=== PATIENT | female | born 1950 | race African-American/Black ===

== ENCOUNTER 2016-12-07 20:45 | Inpatient (IN) | payer MEDICARE, MEDICAID ==
[~2016-12-07] VITALS: Ht 165.1 cm; Wt 127.0 kg
[~2016-12-07 20:45] MED LIST: ALLOPURINOL100 M1 ORAL; ASPIR-LOW81 MG PO; COLACE100 MG ORAL; Colchicine ORAL; DULCOLAX5 MG ORAL; HYDROCHLOROTHIA25 MG PO; LEXAPRO10 MG ORAL; NITROGLYCERIN0.4 MG SL; PRILOSEC40 MG PO; SIMVASTATIN5 MG PO; TENORMIN25 MG PO; TENORMIN50 MG ORAL; TRAMADOL HCL50 MG ORAL; VITAMIN B-12100 MCG ORAL
[2016-12-07 21:02] VITALS: BP 148/71
--- NOTE | 2016-12-07 21:19 | Emergency Room Report ---
History of Present Illness General Chief Complaint: Chest Pain Source: Patient Present Illness HPI This is a 66-year-old female with history of CAD and paroxysmal A. fib. She is not on anticoagulation because she is scared. Patient presents with chest pressure the last couple days. Denies any fever or chills. Denies any nausea vomiting. When she exerts herself she felt winded and short of breath. Also felt like that she goes and out of A. fib. No diaphoresis. Pressure/pain radiates to the epigastric area. She took 2 nitroglycerin without relief. She did take her aspirin today. Allergies: Coded Allergies: NO KNOWN DRUG ALLERGIES (Unverified Allergy, Unknown, 04/24/14) Patient History Past Medical History: see triage record, old chart reviewed, HTN, CAD, AFib Past Surgical History: pacemaker, other Pertinent Family History: none Social History: Denies: smoking Now: No Immunizations: other Reviewed Nursing Documentation: PMH: Agreed, PSxH: Agreed Nursing Documentation-PMH Hx Cardiac Problems: Yes - PACEMAKER, hypothroidism Hx Hypertension: Yes Hx Pacemaker: Yes Hx Asthma: Yes Hx COPD: No Hx Diabetes: No Hx Cancer: Yes - S/P left arm melanoma removal Hx Gastrointestinal Problems: Yes - GOUT, acid reflex Hx Dialysis: No Hx Neurological Problems: Yes Hx Cerebrovascular Accident: No Hx Seizures: No Hx Dizziness: Yes Hx Headaches: Yes Review of Systems Eye: Denies: blurred vision, eye pain ENT: Denies: ear pain, nose congestion, throat swelling Respiratory: Reports: shortness of breath Cardiovascular: Reports: chest pain, palpitations Gastrointestinal: Denies: abdominal pain, diarrhea, nausea, vomiting Musculoskeletal: Denies: back pain, joint pain Skin: Denies: rash Neurological: Denies: headache, numbness Endocrine: Denies: increased thirst, increased urine Hematologic/Lymphatic: Denies: easy bruising All Other Systems: negative except mentioned in HPI Physical Exam Vital Signs Date Time Temp Pulse Resp B/P Pulse Ox O2 Delivery O2 Flow Rate FiO2 12/07/16 20:44 97.5 82 16 151/67 100 Room Air vital with hypertension Sp02 EP Interpretation: reviewed, normal General Appearance: well appearing, no apparent distress, alert Head: normocephalic, atraumatic Eyes: bilateral eye EOMI, bilateral eye PERRL ENT: hearing grossly normal, normal pharynx Neck: full range of motion, supple, no meningismus Respiratory: chest non-tender, lungs clear, normal breath sounds Cardiovascular #1: regular rate, rhythm, no murmur Gastrointestinal: normal bowel sounds, non tender, no mass, no organomegaly, no bruit, non-distended Musculoskeletal: back normal, gait/station normal, normal range of motion Psychiatric: mood/affect normal Skin: warm/dry Medical Decision Making Diagnostic Impression: Primary Impression: ACS (acute coronary syndrome) Additional Impressions: Chest pain Qualified Codes: R07.9 - Chest pain, unspecified Hypertension Qualified Codes: I10 - Essential (primary) hypertension ER Course Patient presents with chest pain. Little atypical in nature but she does have known coronary disease. Labs unremarkable. She is currently in sinus rhythm. patient received aspirin and nitroglycerin by EMS. No evidence of PE, dissection, pneumonia to name a few. Will admit for further workup. Lab Results Impression labs unremarkable EKG Diagnostic Results Rate: normal Rhythm: NSR ST Segments: no acute changes Rhythm Strip Diag. Results EP Interpretation: yes Rate: 67 Rhythm: NSR, no PVC's, no ectopy Chest X-Ray Diagnostic Results EP Interpretation: Yes Findings: no consolidation, no effusion, no pneumothorax, no acute cardiopulmonary disease Number of Views: 1 Last Vital Signs Date Time Temp Pulse Resp B/P Pulse Ox O2 Delivery O2 Flow Rate FiO2 12/07/16 21:02 97.4 71 15 148/71 100 Room Air Status: improved Disposition: ADMITTED INPATIENT Condition: Serious Referrals: NON PHYSICIAN (PCP) NOLA FRAZIER M.D. Dec 07, 2016 21:19
[2016-12-07 21:34] LABS: BASOPHILS % (AUTO) 1.8 % (0.0-2.0); EOSINOPHILS % (AUTO) 2.4 % (0.0-3.0); MEAN CORPUSCULAR HEMOGLOBIN 33.8 PG (27.0-31.0); MEAN CORPUSCULAR HGB CONC 31.9 G/DL (32.0-36.0); MEAN CORPUSCULAR VOLUME 106 FL (80-99); MEAN PLATELET VOLUME 10.5 FL (6.5-10.1); MONOCYTES % (AUTO) 7.4 % (1.0-10.0); NEUTROPHILS % (AUTO) 60.4 % (45.0-75.0); PLATELET COUNT 132 K/UL (150-450); RED BLOOD COUNT 3.91 M/UL (4.20-5.40); RED CELL DISTRIBUTION WIDTH 13.5 % (11.6-14.8); WHITE BLOOD COUNT 6.8 K/UL (4.8-10.8)
[2016-12-07] MEDS ORDERED: Aspirin Baby 81mg ORAL ONE ×2 (21:45→22:15)
[2016-12-07] MEDS ORDERED: Bisacodyl EC 5mg tab ORAL PRN (22:15)
[2016-12-07] MEDS ORDERED: Nitroglycerin Subl 0.4mg tab (Bottle Of 25) SL PRN (22:15)
[2016-12-07] MEDS ORDERED: Atenolol 25mg tab ORAL ONE (22:15)
[2016-12-07] MEDS ORDERED: Allopurinol 100mg Tab ORAL ONE (22:30)
[2016-12-07 22:31] LABS: TROPONIN I < 0.30 ng/mL (<=0.30)
[2016-12-07 22:46] LABS: ALANINE AMINOTRANSFERASE 17 U/L (3-33); ALBUMIN/GLOBULIN RATIO 1.3 (1.0-2.7); ANION GAP 3 (5-15); ASPARTATE AMINO TRANSFERASE 22 U/L (5-40); CALCIUM 8.4 mg/dL (8.6-10.2); CARBON DIOXIDE 26 mEQ/L (20-30); CHLORIDE 104 mEQ/L (98-107); GLOMERULAR FILTRATION RATE > 60 mL/min (>60); HEMOLYSIS 4; POTASSIUM 4.3 mEQ/L (3.4-4.9); SODIUM 133 mEQ/L (135-145); TOTAL PROTEIN 6.5 g/dL (6.6-8.7)
[2016-12-07 22:56] LABS: CKMB < 1.5 ng/mL (< 3.8)
[2016-12-07 23:20] VITALS: BP 128/66
[2016-12-08] VITALS: BP 128/72
[2016-12-08 04:00] VITALS: BP 123/58
[2016-12-08 07:38] LABS: TROPONIN I < 0.30 ng/mL (<=0.30)
[2016-12-08 08:31] VITALS: BP 107/56
[2016-12-08] MEDS: Docusate 100mg tablet ORAL SCH (08:56)
[2016-12-08] MEDS ORDERED: traMADol 50mg tab ORAL ONE (09:00)
--- NOTE | 2016-12-08 10:16 | Diagnostic Imaging Report ---
Indication: Chest pain Technique: XRAY CHEST 1 V Comparison: 12/08/14 Findings: Cardiomediastinal silhouette is stable. There is a left chest pacemaker. There is no consolidation or pleural effusion. Atherosclerotic changes are noted. Degenerative changes of the spine are seen. Impression: No acute cardiopulmonary disease.
[2016-12-08] MEDS ORDERED: traMADol 50mg tab ORAL PRN (10:30)
[2016-12-08 11:56] VITALS: BP 97/52
[2016-12-08] MEDS: Aspirin Baby 81mg ORAL SCH (13:15)
[2016-12-08] MEDS: Allopurinol 100mg Tab ORAL SCH (13:15)
[2016-12-08] MEDS: Vitamin B-12 100mcg tab ORAL SCH (13:58)
[2016-12-08 16:10] VITALS: BP 116/62
--- NOTE | 2016-12-08 16:28 | Cardiology Progress Note ---
Subjective Subjective [id number] Objective Last 24 Hour Vital Signs Date Time Temp Pulse Resp B/P Pulse Ox O2 Delivery O2 Flow Rate FiO2 12/08/16 13:00 60 97/52 12/08/16 12:00 73 12/08/16 11:56 98.1 60 18 97/52 96 Room Air 12/08/16 08:31 97.2 60 20 107/56 97 Room Air 12/08/16 08:00 71 12/08/16 04:00 98.0 66 18 123/58 Room Air 12/08/16 04:00 61 12/08/16 00:00 97.8 68 18 128/72 97 Room Air 12/08/16 00:00 65 12/07/16 23:21 97.5 66 18 128/66 95 Room Air 12/07/16 23:20 97.5 66 18 128/66 95 Room Air 12/07/16 21:02 97.4 71 15 148/71 100 Room Air 12/07/16 21:00 82 16 Room Air 12/07/16 20:44 97.5 82 16 151/67 100 Room Air Intake and Output 12/07/16 12/08/16 19:00 07:00 Intake Total 0 ml Balance 0 ml Intake Oral 0 ml # Voids 3 # Bowel Movements 1 Laboratory Tests Test 12/07/16 21:10 12/07/16 21:45 12/08/16 05:25 White Blood Count 6.8 K/UL (4.8-10.8) Red Blood Count 3.91 M/UL (4.20-5.40) L Hemoglobin 13.2 G/DL (12.0-16.0) Hematocrit 41.4 % (37.0-47.0) Mean Corpuscular Volume 106 FL (80-99) H Mean Corpuscular Hemoglobin 33.8 PG (27.0-31.0) H Mean Corpuscular Hemoglobin Concent 31.9 G/DL (32.0-36.0) L Red Cell Distribution Width 13.5 % (11.6-14.8) Platelet Count 132 K/UL (150-450) L Mean Platelet Volume 10.5 FL (6.5-10.1) H Neutrophils (%) (Auto) 60.4 % (45.0-75.0) Lymphocytes (%) (Auto) 28.0 % (20.0-45.0) Monocytes (%) (Auto) 7.4 % (1.0-10.0) Eosinophils (%) (Auto) 2.4 % (0.0-3.0) Basophils (%) (Auto) 1.8 % (0.0-2.0) Sodium Level 133 mEQ/L (135-145) L Potassium Level 4.3 mEQ/L (3.4-4.9) Chloride Level 104 mEQ/L (98-107) Carbon Dioxide Level 26 mEQ/L (20-30) Anion Gap 3 (5-15) L Blood Urea Nitrogen 14 mg/dL (7-23) Creatinine 1.0 mg/dL (0.5-0.9) H Estimat Glomerular Filtration Rate > 60 mL/min (>60) Glucose Level 108 mg/dL (74-106) H Calcium Level 8.4 mg/dL (8.6-10.2) L Total Bilirubin 0.5 mg/dL (0.0-1.2) Aspartate Amino Transf (AST/SGOT) 22 U/L (5-40) Alanine Aminotransferase (ALT/SGPT) 17 U/L (3-33) Alkaline Phosphatase 71 U/L (35-104) Total Creatine Kinase 96 U/L (26-140) Creatine Kinase MB < 1.5 ng/mL (< 3.8) Creatine Kinase MB Relative Index 1.5 Troponin I < 0.30 ng/mL (<=0.30) < 0.30 ng/mL (<=0.30) Total Protein 6.5 g/dL (6.6-8.7) L Albumin 3.7 g/dL (3.5-5.2) Globulin 2.8 g/dL Albumin/Globulin Ratio 1.3 (1.0-2.7) NIKITA VALERIO Dec 08, 2016 16:27
[2016-12-08 20:00] VITALS: BP 127/68
[2016-12-09] VITALS: BP 121/66
--- NOTE | 2016-12-09 00:58 | Consultation ---
DATE OF CONSULTATION: 12/08/2016 CARDIOLOGY CONSULTATION This consultation is done as a coverage for Dr. Jose F Barrow. IDENTIFYING DATA: This is a 66-year-old black female. REASON FOR EVALUATION: Chest pain. HISTORY OF PRESENT ILLNESS: Taken from the patient. She reports that for several days, she had burning in her abdomen. Also, she had epigastric discomfort, severe nausea and then day before yesterday, the patient developed severe tightness in her chest. It was so severe as squeezing, radiating to her back, made her scared. She tried a couple of nitroglycerin, but then she decided to come in. Right now, she feels fine. No pain, but she has a burning in the lower part of her abdomen. PAST MEDICAL HISTORY: Significant for obesity, hypertension, gout, and hyperlipidemia. She has a pacemaker in and also GERD. PAST SURGICAL HISTORY: Pacemaker, hysterectomy and cervical conization. MEDICATIONS: Prior to admission include allopurinol, aspirin, atenolol, vitamin B12, Colace, Lexapro, omeprazole, simvastatin and tramadol. ALLERGIES: None reported. HABITS: No history of drinking, smoking, or drug abuse. SOCIAL HISTORY: Lives at home, independent. REVIEW OF SYSTEMS: No dysuria. No fever. No chills. Severe nausea, but no vomiting. No exertional chest pain. Severe knee arthritis. PHYSICAL EXAMINATION: GENERAL: This is a pleasant patient, not in acute distress. VITAL SIGNS: Blood pressure is 100/50, heart rate is 60, oxygen saturation is 97% on room air, temperature is 97.2 degrees. HEENT: PERRLA. EOMI. NECK: Supple. No obvious distress. She is obese. No neck vein distention. No carotid bruit. LUNGS: She has only a few crackles at bases. Otherwise unremarkable. Her EKG is normal besides bradycardia. HEART: Regular. There is very diminished S1. There is no gallop or murmur. BREAST: No masses. ABDOMEN: Soft and nondistended. There is tenderness in the epigastric area with percussion and palpation. Nonradiating bowel sounds are present. There is small umbilical hernia. EXTREMITIES: Lower extremities, no edema. Distal pulses palpable. NEUROLOGICAL: She is intact. LABORATORY AND DIAGNOSTIC DATA: Her EKG is sinus rhythm. Troponin was negative. Her laboratories yesterday was sodium 133 and protein 6.5. Her hematology and CBC was unremarkable. IMPRESSION AND RECOMMENDATION: Atypical chest pain could be cardiac and unstable angina could be gastroesophageal reflux disease. The patient has multiple coronary risk factors. She is not aware of recent ischemia workup. She said that she had a stress test at the [facility] several years ago and it was negative, but it was over 5 years ago. So, she is going to go for stress nuclear scan and also possibly gastrointestinal evaluation would be appropriate. Thank you very much for your consultation. Ro Vazquez M.D. DR: GUS JOB#: [id number] CC:
[2016-12-09 04:00] VITALS: BP 129/68
[2016-12-09 08:00] VITALS: BP 112/53
[2016-12-09 08:34] LABS: TROPONIN I < 0.30 ng/mL (<=0.30)
[2016-12-09 08:46] LABS: CALCIUM 8.1 mg/dL (8.6-10.2); CREATININE 1.2 mg/dL (0.5-0.9); GLOMERULAR FILTRATION RATE 54.2 mL/min (>60); POTASSIUM 4.5 mEQ/L (3.4-4.9)
[2016-12-09 08:47] LABS: BASOPHILS % (AUTO) 0.5 % (0.0-2.0); EOSINOPHILS % (AUTO) 2.2 % (0.0-3.0); LYMPHOCYTES % (AUTO) 32.9 % (20.0-45.0); MEAN CORPUSCULAR HEMOGLOBIN 32.3 PG (27.0-31.0); MEAN CORPUSCULAR HGB CONC 31.2 G/DL (32.0-36.0); MEAN CORPUSCULAR VOLUME 104 FL (80-99); MEAN PLATELET VOLUME 7.9 FL (6.5-10.1); MONOCYTES % (AUTO) 7.7 % (1.0-10.0); NEUTROPHILS % (AUTO) 56.8 % (45.0-75.0); PLATELET COUNT 158 K/UL (150-450); RED BLOOD COUNT 3.72 M/UL (4.20-5.40); RED CELL DISTRIBUTION WIDTH 13.3 % (11.6-14.8); WHITE BLOOD COUNT 6.2 K/UL (4.8-10.8)
[2016-12-09] MEDS: Allopurinol 100mg Tab ORAL SCH (10:00)
[2016-12-09] MEDS: Docusate 100mg tablet ORAL SCH (10:00)
[2016-12-09] MEDS: Vitamin B-12 100mcg tab ORAL SCH (10:00)
[2016-12-09] MEDS: Aspirin Baby 81mg ORAL SCH (10:00)
--- NOTE | 2016-12-09 10:41 | Diagnostic Imaging Report ---
Indications: Abdominal pain Technique: 2 views of the abdomen. Findings: Comparison: None. The bowel gas pattern is unremarkable. No intraperitoneal free air, bowel wall thickening, or air-fluid levels are demonstrated. No abnormal calcific or soft tissue densities are demonstrated. Disc marginal osteophytes are present in the lumbar and lower thoracic spine. Sclerosis is present at the margins of both sacroiliac joints, right greater than left. Pubic symphysis is mildly widened with marginal sclerosis. IMPRESSION: No evidence of acute abdominopelvic disease Degenerative spondylosis Bilateral sacroiliac arthropathy, nonspecific, may be degenerative or represent seronegative spondyloarthropathy Diastases of the pubic symphysis with marginal sclerosis, likely chronic.
[2016-12-09 12:00] VITALS: BP 123/63
[2016-12-09] MEDS ORDERED: Adenosine Inj IVP ONE (13:00)
[2016-12-09 16:00] VITALS: BP 113/61
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
--- NOTE | 2016-12-09 17:35 | Cardiology Progress Note ---
Assessment/Plan Assessment/Plan chest pain / palpitation paf flutter htn obesity s/p ppi [employer] device anxiety hx she has had similar sx on prior occasion neg ischemia Evaluation at [facility] 2014 neg awiat result of today stress test gi lino appropriate ekg per rev tele per rev xray rev d/w dr bradley prior test results rev Subjective ROS Limited/Unobtainable: Yes Subjective better today less cp had cp for more than 24 hours similar to prior episodes Objective Last 24 Hour Vital Signs Date Time Temp Pulse Resp B/P Pulse Ox O2 Delivery O2 Flow Rate FiO2 12/09/16 12:00 98.1 60 20 123/63 97 Room Air 12/09/16 12:00 60 12/09/16 08:00 60 12/09/16 08:00 97.5 61 20 112/53 95 Room Air 12/09/16 04:00 97.0 66 18 129/68 93 Room Air 12/09/16 04:00 71 12/09/16 00:00 97.2 75 18 121/66 96 Room Air 12/09/16 00:00 67 12/08/16 20:00 97.5 69 20 127/68 97 Room Air 12/08/16 20:00 67 General Appearance: no apparent distress, obese Neck: supple Cardiovascular: normal rate, regular rhythm, other - chest wall tender but nto reporoduce all the sx Respiratory/Chest: lungs clear Abdomen: normal bowel sounds, non tender, soft Extremities: no swelling Intake and Output 12/08/16 12/09/16 19:00 07:00 Intake Total 480 ml Balance 480 ml Intake Oral 480 ml # Voids 3 2 Laboratory Tests Test 12/09/16 07:50 White Blood Count 6.2 K/UL (4.8-10.8) Red Blood Count 3.72 M/UL (4.20-5.40) L Hemoglobin 12.0 G/DL (12.0-16.0) Hematocrit 38.5 % (37.0-47.0) Mean Corpuscular Volume 104 FL (80-99) H Mean Corpuscular Hemoglobin 32.3 PG (27.0-31.0) H Mean Corpuscular Hemoglobin Concent 31.2 G/DL (32.0-36.0) L Red Cell Distribution Width 13.3 % (11.6-14.8) Platelet Count 158 K/UL (150-450) Mean Platelet Volume 7.9 FL (6.5-10.1) Neutrophils (%) (Auto) 56.8 % (45.0-75.0) Lymphocytes (%) (Auto) 32.9 % (20.0-45.0) Monocytes (%) (Auto) 7.7 % (1.0-10.0) Eosinophils (%) (Auto) 2.2 % (0.0-3.0) Basophils (%) (Auto) 0.5 % (0.0-2.0) Sodium Level 142 mEQ/L (135-145) Potassium Level 4.5 mEQ/L (3.4-4.9) Chloride Level 100 mEQ/L (98-107) Carbon Dioxide Level 29 mEQ/L (20-30) Anion Gap 13 (5-15) Blood Urea Nitrogen 17 mg/dL (7-23) Creatinine 1.2 mg/dL (0.5-0.9) H Estimat Glomerular Filtration Rate 54.2 mL/min (>60) Glucose Level 119 mg/dL (74-106) H Calcium Level 8.1 mg/dL (8.6-10.2) L Troponin I < 0.30 ng/mL (<=0.30) ADIEN GUZMAN Dec 09, 2016 17:35
--- NOTE | 2016-12-09 19:47 | History and Physical Report ---
DATE OF ADMISSION: 12/07/2016 CHIEF COMPLAINT: Chest pain. HISTORY OF PRESENT ILLNESS: This is a 66-year-old female INCOMPLETE DICTATION Angie Batista M.D. DR: OLIMPIA JOB#: [id number] CC:
[2016-12-09 20:00] VITALS: BP 112/55
--- NOTE | 2016-12-09 22:18 | History and Physical Report ---
DATE OF ADMISSION: 12/07/2016 CHIEF COMPLIANT: Chest pain. HISTORY OF PRESENT ILLNESS: This is a 66-year-old female with past medical history of sinus node dysfunction with paroxysmal atrial fibrillation requiring pacemaker, hypertension, hyperlipidemia, obstructive sleep apnea, GERD, history of panic attacks, and history of recurrent headache. She was admitted last time to the hospital in 2013. She comes in to the hospital after having chest pain. She said she started having this chest pain since . She had pressure like pain in the substernal area, which radiated to the epigastrium. She first thought it was acid reflux and then it got worse associated with shortness of breath. She came in to the emergency room after the chest pain did not relieve with one nitroglycerin. She came in to the emergency room and found to have a negative troponin, stable hemodynamics. Her EKG was not suggestive of cardiac ischemia. When I saw her, she was more complaining of nausea and some abdominal discomfort. She has been ruled out. I have called Cardiology, Dr. Barrow, who mentions that the patient has had a stress test, which remains negative. At the present time, the patient is chest pain free, mainly complaining of nausea. She is continued on aspirin, statins, and beta-nabila here in the hospital. There is no vomiting, no fevers, no chills, no rectal bleeding, no hematemesis, and no melena. PAST MEDICAL/SURGICAL HISTORY: Symptomatic sinus node dysfunction with paroxysmal atrial fibrillation and flutter requiring pacemaker insertion, hypertension, hyperlipidemia, obstructive sleep apnea, DJD, GERD, umbilical hernia, history of panic attacks, history of headache, status post tonsillectomy with cyst removal, and hysteroscopy. MEDICATIONS: Atenolol 50 mg daily, allopurinol 200 mg daily, aspirin 81 mg daily, omeprazole 20 mg daily, Zocor 5 mg daily, nitroglycerin p.r.n., Ultram 50 mg daily p.r.n., and vitamin B12. ALLERGIES: No known allergies. SOCIAL HISTORY: She lives at home with her son. No alcohol, no tobacco, no drugs. FAMILY HISTORY: Positive for coronary artery disease. REVIEW OF SYSTEMS: Positive pertinent per HPI. PHYSICAL EXAMINATION: VITAL SIGNS: Temperature 97.4 degrees, pulse 71, respirations 15, blood pressure 148/71, and oxygen saturation 100%. GENERAL: The patient is awake, alert, in no distress. NECK: Supple. No JVD. LUNGS: Clear to auscultation. HEART: S1 and S2. Regular rate and rhythm. No murmur. ABDOMEN: Obese, soft, and nontender. EXTREMITIES: No cyanosis, no clubbing, and no edema. NEUROLOGIC: Awake and alert. The patient moves all her extremities. LABORATORY: WBC 6.8, hemoglobin 13.2, hematocrit 41.4, and platelets 132,000. Sodium 133, potassium 4.3, chloride 104, bicarbonate 26, BUN and creatinine 14 and 1. Glucose 108. Calcium 8.4. Troponin less than 0.30 x2. EKG, normal sinus rhythm. ASSESSMENT AND PLAN: 1. Acute coronary syndrome, rule out myocardial infarction. At the present time, the patient is ruled out. Troponins are negative. She is hemodynamically stable. She has been continued on aspirin, statin, and beta-blockers here in the hospital. Per Cardiology, Dr. Barrow, she had a recent stress test, which was negative. Await further input from Cardiology. 2. Atrial fibrillation. Heart rate is controlled. We will continue beta-blockers and aspirin. 3. Abdominal pain. The patient reports nausea and abdominal pain. Her abdomen is non-surgical. No peritoneal signs on exam, but we will get an x-ray. Continue PPI. 4. Secondary hypercoagulable state. 5. Obstructive sleep apnea. 6. Hypertension. This is stable. Continue atenolol. 7. Gout. This is stable. Continue allopurinol. 8. Sinus node dysfunction status post pacemaker insertion in 2012. She may require pacemaker interrogation. We will defer this to Cardiology. 9. Hyperlipidemia. This is stable. Continue statin. 10. Thrombocytopenia. No evidence of bleeding. Repeat CBC. 11. Deep venous thrombosis, gastrointestinal and stress ulcer prophylaxis with SCDs, Prilosec and Protonix. Angie Batista M.D. DR: OLIMPIA JOB#: [id number] CC:
[2016-12-10 00:25] VITALS: BP 113/55
[2016-12-10 04:00] VITALS: BP 107/62
[2016-12-10 07:51] LABS: TROPONIN I < 0.30 ng/mL (<=0.30)
[2016-12-10 08:14] VITALS: BP 117/61
[2016-12-10] MEDS: Aspirin Baby 81mg ORAL SCH (08:44)
[2016-12-10] MEDS: Allopurinol 100mg Tab ORAL SCH (08:44)
[2016-12-10] MEDS: Vitamin B-12 100mcg tab ORAL SCH (08:44)
[2016-12-10] MEDS: Docusate 100mg tablet ORAL SCH (08:45)
--- NOTE | 2016-12-10 08:49 | General Progress Note ---
Assessment/Plan Assessment/Plan GI Consult Dictated Patient with TTP umbilical hernia Will check CT Needs eventual colonoscopy as outpatient Thank you Patricia Barry MD Subjective Allergies: Coded Allergies: NO KNOWN DRUG ALLERGIES (Unverified Allergy, Unknown, 04/24/14) Objective Last 24 Hour Vital Signs Date Time Temp Pulse Resp B/P Pulse Ox O2 Delivery O2 Flow Rate FiO2 12/10/16 08:14 97.0 61 18 117/61 97 Room Air 12/10/16 04:00 97.5 61 20 107/62 96 Room Air 12/10/16 04:00 65 12/10/16 00:25 98.0 60 20 113/55 94 Room Air 12/10/16 00:00 61 12/09/16 20:00 98.1 60 20 112/55 93 Room Air 12/09/16 20:00 63 12/09/16 16:00 96.6 61 20 113/61 96 Room Air 12/09/16 16:00 61 12/09/16 12:00 98.1 60 20 123/63 97 Room Air 12/09/16 12:00 60 Intake and Output 12/09/16 12/10/16 19:00 07:00 Intake Total 360 ml Balance 360 ml Intake Oral 360 ml # Voids 2 2 Laboratory Tests 12/10/16 06:40: Troponin I < 0.30 Height (Feet): 5 Height (Inches): 5.00 Weight (Pounds): 280 PATRICIA BARRY Dec 10, 2016 08:49
--- NOTE | 2016-12-10 09:28 | Cardiology Progress Note ---
Assessment/Plan Assessment/Plan chest pain / palpitation paf flutter htn obesity s/p ppi [employer] device anxiety hx she has had similar sx on prior occasion neg ischemia Evaluation at [facility] 2014 neg awiat result of today stress test stil lnot ready as of 11/30/2016 am gi lino will dc tele once neuclear test result known Subjective Cardiovascular: Reports: chest pain - min tighnesss still present but most discomforo in the abd today , Denies: lightheadedness, palpitations Respiratory: Reports: shortness of breath Gastrointestinal/Abdominal: Reports: abdominal pain, Denies: nausea Genitourinary: Denies: burning Objective Last 24 Hour Vital Signs Date Time Temp Pulse Resp B/P Pulse Ox O2 Delivery O2 Flow Rate FiO2 12/10/16 08:14 97.0 61 18 117/61 97 Room Air 12/10/16 04:00 97.5 61 20 107/62 96 Room Air 12/10/16 04:00 65 12/10/16 00:25 98.0 60 20 113/55 94 Room Air 12/10/16 00:00 61 12/09/16 20:00 98.1 60 20 112/55 93 Room Air 12/09/16 20:00 63 12/09/16 16:00 96.6 61 20 113/61 96 Room Air 12/09/16 16:00 61 12/09/16 12:00 98.1 60 20 123/63 97 Room Air 12/09/16 12:00 60 General Appearance: no apparent distress, alert, obese Neck: no JVD Cardiovascular: normal rate, regular rhythm Respiratory/Chest: lungs clear, normal breath sounds Abdomen: normal bowel sounds, non tender, soft Extremities: no swelling Intake and Output 12/09/16 12/10/16 19:00 07:00 Intake Total 360 ml Balance 360 ml Intake Oral 360 ml # Voids 2 2 Laboratory Tests Test 12/10/16 06:40 Troponin I < 0.30 ng/mL (<=0.30) AIDEN GUZMAN Dec 10, 2016 09:28
--- NOTE | 2016-12-10 09:44 | Diagnostic Imaging Report ---
Indications: Chest pain Technique: Single day single isotope protocol utilized. Initially, resting images obtained using IV administration 10.8 millicuries 99M technetium Myoview. Subsequently, patient underwent adenosine stress testing. See cardiology report for details. During adenosine infusion, IV administration 30.1 mCi 99 M technetium Myoview. SPECT and planar images obtained. SPECT images gated to 8 phases of the cardiac cycle were also obtained, and reformatted into cine images for evaluation of ejection fraction. Comparison: None Findings: Per cardiology report, patient experienced chest pain and throat tightness. Per cardiology report, resting EKG demonstrates atrial paced rhythm, otherwise within normal limits. No significant ST-T wave changes were demonstrated during infusion. Imaging demonstrates normal post stress perfusion, without evidence of fixed or reversible perfusion defect. Calculated post stress ejection fraction 68% no focal wall motion abnormality demonstrated Impression: Equivocal clinical response to pharmacologic stress, per cardiology report Nonischemic electrocardiographic response to pharmacologic stress, per cardiology report No imaging findings to suggest ischemia, at level of stress achieved. Calculated post stress ejection fraction 68%
[2016-12-10 11:41] VITALS: BP 114/63
--- NOTE | 2016-12-10 14:20 | Diagnostic Imaging Report ---
Clinical Indication: Abdominal pain Technique: No oral contrast utilized, per emergency room physician request IV administration nonionic contrast. Venous phase spiral acquisition obtained through the abdomen and pelvis. Multiplanar reconstructions were generated. Total dose length product a 93 mGycm. CTDIvol(s) right mGy Comparison: None Findings: There is colonic diverticulosis. There is equivocal minimal infiltration of the pericolonic fat along the proximal sigmoid colon, as well as subtle slight sigmoid wall thickening. Numerous prominent perisigmoid lymph nodes are seen. No abnormal fluid collections or extraluminal gas demonstrated There is diastasis of the rectus abdominis tendon as well as atrophy of the rectus abdominis musculature. More inferiorly, there is a fat-containing periumbilical hernia which measures approximately 8 cm in diameter. The appendix is not definitely identified, but there are no findings to suggest acute appendicitis. No small bowel distention. No small bowel wall thickening. No free or loculated intraperitoneal air or fluid is evident. The liver and gallbladder are unremarkable. The extra hepatic bile ducts are mildly ectatic, common bile duct measuring 8 mm diameter. No downstream obstructive lesion demonstrated. The pancreas, spleen, adrenals are unremarkable. A 3 mm calculus is seen in the lower pole of the right kidney, and there is questionably a 2 mm calculus in the upper pole of the right kidney. No left renal or ureteral calculi demonstrated. No hydronephrosis or hydroureter. No focal renal parenchymal abnormality. No retroperitoneal or mesenteric mass or adenopathy. The heart is enlarged. Pacemaker wires are seen within the right atrium and ventricle. The included lung bases are clear. There are degenerative changes of the lumbar spine. An unusual bony spur projects cephalad and slightly anterior from the anterior right acetabulum. Impression: Colonic diverticulosis. There is equivocal minimal perisigmoid inflammatory change, as well as subtle slight sigmoid wall thickening. If real, these findings could indicate mild acute diverticulitis Prominent perisigmoid lymph nodes, nonspecific. Could be reactive if there is indeed diverticulitis. Metastatic etiology much less likely but not completely excludable No other acute process demonstrated Ectatic common bile duct, without evidence of downstream obstructive lesion. Correlate with liver function tests as regards significance, consider MRCP if clinically indicated Large fat-containing periumbilical hernia Nonobstructive right renal calyceal calculi Cardiomegaly Other findings as noted, including unusual right periacetabular spur, pacemaker, degenerative lumbar spondylosis The CT scanner at [facility] is accredited by the [employer] and the scans are performed using protocols designed to limit radiation exposure to as low as reasonably achievable to attain images of sufficient resolution adequate for diagnostic evaluation.
--- NOTE | 2016-12-10 15:22 | Diagnostic Imaging Report ---
APPROVED REPORT CPT Code: 39046 Present Symptoms Lower Extremity Pain: Bilateral BILATERAL: Imaging reveals a patent deep venous system bilaterally. There is no evidence of thrombus within the femoral, popliteal or tibial segments. The greater saphenous veins are also within normal limits. Doppler indicates normal spontaneous flow within these segments.
[2016-12-10 15:38] VITALS: BP 125/71
--- NOTE | 2016-12-10 16:32 | Geriatric Progress Note ---
Assessment/Plan Problems: (1) Nausea (2) Abdominal discomfort in left flank (3) Atrial fibrillation (4) S/P placement of cardiac pacemaker (5) Gout (6) Dyslipidemia (7) HTN (hypertension) (8) Palpitations (9) Chest pain (10) Diverticulitis large intestine Assessment/Plan Atypical chest/abdominal pain, apparently in part attributable to mild diverticulitis, place on p.o. Cipro/Flagyl x 7d. No evidence of cardiac ischemia. ? chest sxs due to reflux, costochondritis. Now doubt ankylosing spondylitis given lack of findings on CT scan of abd/ pelvis. Hold overnight due to loose stools from contrast. Plan d/c in am. Outpatient f/u with GI, rheumatology, surgery for hernia evaluation. Continue other tx. Dictated #[id number] Discussed with: patient, hospital staff Subjective Interval Events Patient reports feeling better, both abdomen and chest. Having some loose stools due to contrast. Ischemic evaluation with no evidence of ischemic regions, no wall motion abnormalities, EF 68%. Discussed with Dr. Barrow. Abd/pelvis CT with fat in periumbilical hernia, mild perisigmoid inflammatory signal suggestive of mild diverticulitis. Discussed with Dr. Barry, cover with po antibiotics, outpatient colonoscopy. Eating adequately. Constitutional: Denies: chills, fever, sweats Respiratory: Denies: shortness of breath Genitourinary: Denies: dysuria Geriatric Geriatric Last 24 Hour Vital Signs Date Time Temp Pulse Resp B/P Pulse Ox O2 Delivery O2 Flow Rate FiO2 12/10/16 15:38 97.0 67 18 125/71 100 Room Air 12/10/16 12:00 64 12/10/16 11:41 97.3 60 18 114/63 97 Room Air 12/10/16 08:14 97.0 61 18 117/61 97 Room Air 12/10/16 08:00 74 12/10/16 04:00 97.5 61 20 107/62 96 Room Air 12/10/16 04:00 65 12/10/16 00:25 98.0 60 20 113/55 94 Room Air 12/10/16 00:00 61 12/09/16 20:00 98.1 60 20 112/55 93 Room Air 12/09/16 20:00 63 12/09/16 16:00 96.6 61 20 113/61 96 Room Air 12/09/16 16:00 61 Intake and Output 12/09/16 12/10/16 19:00 07:00 Intake Total 360 ml Balance 360 ml Intake Oral 360 ml # Voids 2 2 Laboratory Tests Test 12/10/16 06:40 Troponin I < 0.30 ng/mL (<=0.30) Current Medications Medications (Trade) Dose Ordered Sig/Ganesh Route PRN Reason Start Time Stop Time Status Last Admin Dose Admin Allopurinol (Zyloprim) 200 mg DAILY ORAL 12/08/16 13:00 01/07/17 12:59 12/10/16 08:44 Aspirin (ASA) 81 mg DAILY ORAL 12/08/16 13:00 01/07/17 12:59 12/10/16 08:44 Atorvastatin Calcium (Lipitor) 10 mg QHS ORAL 12/08/16 21:00 01/07/17 20:59 12/09/16 21:16 Bisacodyl (Dulcolax) 10 mg DAILYPRN PRN ORAL Constipation 12/07/16 22:15 01/06/17 22:14 Cyanocobalamin (Vitamin B-12 Tab) 100 mcg DAILY ORAL 12/08/16 13:00 01/07/17 12:59 12/10/16 08:44 Dextrose (Dextrose 50%) STAT PRN IV Hypoglycemia 12/07/16 22:00 01/06/17 21:59 Docusate Sodium (Colace) 100 mg DAILY ORAL 12/08/16 09:00 01/07/17 08:59 12/10/16 08:45 Metoclopramide HCl (Reglan) 5 mg THREE TIMES A DAY ORAL 12/08/16 13:00 01/07/17 12:59 12/10/16 12:12 Nitroglycerin (Ntg) 0.4 mg Q5M PRN SL Prn Chest Pain 12/07/16 22:15 01/06/17 22:14 Ondansetron HCl (Zofran) 4 mg Q6H PRN IVP Nausea & Vomiting 12/07/16 22:15 01/06/17 22:14 12/08/16 17:01 Pantoprazole (Protonix) 40 mg DAILY ORAL 12/09/16 09:00 01/08/17 08:59 12/10/16 08:44 Tramadol HCl (Ultram) 50 mg BIDPRN PRN ORAL For Pain 12/08/16 10:30 12/15/16 10:29 12/08/16 22:15 Height (Feet): 5 Height (Inches): 5.00 Weight (Pounds): 280 General Appearance: no apparent distress, alert, non-toxic Head: normocephalic, atraumatic Eyes: bilateral anicteric ENT: normal pharynx, normal voice Neck: full range of motion, no mass Respiratory: lungs clear Cardiovascular: regular rate, rhythm Gastrointestinal: normal bowel sounds, soft, no organomegaly, non-distended, tenderness - mild left lower quadrant tenderness., hernia Edema: no edema noted Generalized TRENT BURTON Dec 10, 2016 16:32
[2016-12-10] MEDS ORDERED: FLAGYL500 MG ORAL (16:49)
[2016-12-10] MEDS ORDERED: CIPROFLOXACIN500 M2 ORAL (16:49)
--- NOTE | 2016-12-10 16:50 | Discharge Instructions ---
Discharge Instructions For Congestive Heart Failure Reminder Report to your physician any weight gain of 5 pounds or more in one week. TRENT BURTON Dec 10, 2016 16:50
[2016-12-10] MEDS: Ciprofloxacin 500mg tab ORAL SCH (17:24)
[2016-12-10] MEDS: metroNIDAZOLE 500mg tab ORAL SCH ×2 (17:24→23:11)
[2016-12-10 20:00] VITALS: BP 119/63
[2016-12-11] VITALS: BP 118/62
--- NOTE | 2016-12-11 02:38 | Consultation ---
DATE OF CONSULTATION: 12/10/2016 GASTROENTEROLOGY CONSULTATION CONSULTING PHYSICIAN: Patricia Barry M.D. REFERRING PHYSICIAN: Cullen Willett M.D. CHIEF COMPLAINT: I was asked to see this patient by Dr. Cullen Willett for evaluation of abdominal issues. HISTORY OF PRESENT ILLNESS: The patient is a pleasant 66-year-old woman with multiple medical problems, who was brought into the hospital since she had an episode of dizziness. She has been seen on the floor with the Cardiology service for evaluation of her chest pain, which was done as an outpatient . She has been seen by Cardiology service and a cardiac evaluation is underway. The patient also complained of symptoms of gastroesophageal reflux disease, which has been worse for the past five days. She also complains of some fullness and pressure in the lower abdomen as well as some burning and nausea. She has had a bowel movement yesterday and she denies constipation as well as diarrhea. She states her last colonoscopy was about five years ago. She denies any hematochezia. PAST MEDICAL HISTORY: History of symptomatic sinus node dysfunction, paroxysmal atrial fibrillation and atrial flutter, hypertension, hyperlipidemia, obstructive sleep apnea, degenerative joint disease, gastroesophageal reflux disease, umbilical hernia, history of panic attacks, history of headaches, status post tonsillectomy, and hysteroscopy. ALLERGIES: No known drug allergies. MEDICATIONS: See chart list for details. FAMILY HISTORY: Positive for coronary artery disease. SOCIAL HISTORY: The patient lives at home. She does not smoke or drink. REVIEW OF SYSTEMS: Otherwise negative. PHYSICAL EXAMINATION: GENERAL: A pleasant, elderly woman, seen in her room. HEENT: Normocephalic and atraumatic. Sclerae nonicteric. Oropharynx clear. NECK: Supple. CHEST: Clear to auscultation. CARDIOVASCULAR: Revealed regular rate. ABDOMEN: Obese and soft. There is a periumbilical hernia, which appeared to be significantly tender to palpation. There is also some discomfort elsewhere in the stomach, especially in the lower quadrant. EXTREMITIES: No edema. LABORATORY DATA: Noted. ASSESSMENT: This patient presents with abdominal pain, which appears to be predominantly periumbilical in nature. The patient diagnosed with incarcerated hernia as the main etiology and this has to be evaluated with a CT scan, which will be ordered now. The patient also has some vague abdominal discomfort also, which should be also evaluated by the same CT scan. Her stools can also be checked for Clostridium difficile and other pathogens. I have advised the patient that given her age, we recommend doing a colonoscopy, but this can be done as an outpatient. An endoscopy can also be done at the same time to evaluate her reflux symptoms. RECOMMENDATIONS: Per above discussion and per orders written in the chart. Thank you for asking me to participate in the care of this patient. Patricia Barry M.D. DR: LYNDSEY JOB#: [id number] CC:
[2016-12-11 04:00] VITALS: BP 132/64
--- NOTE | 2016-12-11 04:58 | Discharge Summary ---
DATE OF ADMISSION: 12/07/2016 DATE OF DISCHARGE: 12/11/2016 DISCHARGE DIAGNOSES: 1. Atypical chest and abdominal pain. 2. Diverticulitis. 3. No evidence of cardiac ischemia. 4. Periumbilical hernia. 5. Abdominal diastasis. 6. Obesity. 7. Paroxysmal atrial fibrillation and flutter requiring pacemaker insertion. 8. Hypertension. 9. Hyperlipidemia. 10. Obstructive sleep apnea. 11. Degenerative joint disease. 12. Gastroesophageal reflux disease. 13. 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 14. History of panic attacks. 15. History of headaches. 16. Status post tonsillectomy with cyst removal. 17. Status post hysteroscopy. HISTORY OF PRESENT ILLNESS: The patient is a 66-year-old woman who presented with complaints of abdominal and chest discomfort. Details of the history and physical examination are per the dictation of 12/08/2016. HOSPITAL COURSE: The patient was admitted to the [facility]. The patient presented with complaints of abdominal and chest pain. Details of the history and physical examination are per the dictation of 12/08/[address] Warren. HOSPITAL COURSE: The patient was admitted to the telemetry unit. Cardiac enzymes were unremarkable. A cardiac ischemic nuclear medicine scan was done, which revealed ejection fraction of 68%, no wall motion segmental abnormalities and no evidence of reversible ischemia, suggesting an entirely normal examination. The etiology for the chest pain is unclear. There may be an element of reflux and esophageal discomfort, but possibly also an element of costochondritis. Because of the patient's abdominal pain she was also evaluated in terms of gastrointestinal etiologies and the initial abdominal film showed some bilateral sacroiliac joint sclerosis, this raised the possibility that the patient might have a seronegative arthropathy possibly ankylosing spondylitis or related diseases with resulting mild inflammatory bowel disease and costochondritis manifestations. Subsequently, the patient's CT scan of the abdomen and pelvis apparently did not reveal significant changes consistent with such an arthropathy, making the likelihood considerably less. However the possibilityof such contribution was discussed with Dr. Mojica and she will follow up with him on a rheumatologic basis in this regard as well as for her normal osteoarthritic treatment. Because of the abdominal symptoms Gastrointestinal consultation was also requested from Dr. Barry. He ordered a CT scan of the abdomen and pelvis which did show some mild pericolic inflammatory changes in the sigmoid area possibly relating to mild diverticulitis. Since this could be a contributing etiology to the patient's overall presentation, it was recommended by Dr. Barry that a 7-day course of oral antibiotics be initiated for treatment of this etiology. Further Gastrointestinal workup will be done as an outpatient. There was finding of a paraumbilical hernia with fat which had been noted in the past. The patient apparently has a moderate amount of tenderness but no signs of significant inflammatory process on the CT scan. A referral will be made to surgery with regard to possible treatment although it should be noted that the CT scan also shows significant diastasis, which may make the surgical repair more problematic. Over the course of the patient's hospitalization her symptoms did improve and at this point the patient is deemed stable to be discharged to home. MEDICATIONS: Her medications will include 1. Atenolol 50 mg daily. 2. Allopurinol 200 mg daily. 3. Aspirin 81 mg daily. 4. Omeprazole 20 mg daily. 5. Zocor 5 mg daily. 6. Nitroglycerin p.r.n. 7. Ultram 50 mg p.r.n. q6h. 8. A six-day course of ciprofloxacin 500 mg q.12 h. and metronidazole 500 mg every eight hours. DISCHARGE INSTRUCTIONS: The patient will be followed up in the office and should follow up with Gastroenterology, Rheumatology, General surgery and also follow up with Cardiology. Cullen Willett M.D. DR: MAXIMUS JOB#: [id number] CC: FRANCISCA
[2016-12-11] MEDS: metroNIDAZOLE 500mg tab ORAL SCH (06:35)
[2016-12-11 07:59] VITALS: BP 125/67
[2016-12-11] MEDS: Aspirin Baby 81mg ORAL SCH (08:15)
[2016-12-11] MEDS: Vitamin B-12 100mcg tab ORAL SCH (08:15)
[2016-12-11] MEDS: Ciprofloxacin 500mg tab ORAL SCH (08:16)
[2016-12-11] MEDS: Allopurinol 100mg Tab ORAL SCH (08:16)
[2016-12-11] MEDS: Docusate 100mg tablet ORAL SCH (08:16)
[2016-12-11 11:48] VITALS: BP 128/70
--- NOTE | 2016-12-11 16:15 | Cardiology Report ---
APPROVED REPORT EKG Measurement Heart [id number] Normal sinus rhythm Normal ECG
--- NOTE | 2016-12-11 22:25 | General Progress Note ---
Assessment/Plan Assessment/Plan Assessment - Diverticulitis - umbilical hernia - obesity Recommendations - abx - push po - outpatient colonoscopy at a later date Subjective Allergies: Coded Allergies: NO KNOWN DRUG ALLERGIES (Unverified Allergy, Unknown, 04/24/14) Subjective feels better less pain for discharge CT reviewed with patient Objective Last 24 Hour Vital Signs Date Time Temp Pulse Resp B/P Pulse Ox O2 Delivery O2 Flow Rate FiO2 12/11/16 11:48 97.0 60 18 128/70 96 Room Air 12/11/16 11:28 61 12/11/16 07:59 97.2 75 18 125/67 98 Room Air 12/11/16 07:23 76 12/11/16 04:00 97.2 64 18 132/64 96 Room Air 12/11/16 04:00 63 12/11/16 00:00 63 12/11/16 00:00 98.1 117 18 118/62 94 Room Air Intake and Output 12/10/16 12/11/16 19:00 07:00 Intake Total 480 ml Balance 480 ml Intake Oral 480 ml # Voids 3 3 # Bowel Movements 1 Height (Feet): 5 Height (Inches): 5.00 Weight (Pounds): 280 Objective WDWN NCAT supple CTA RRR Soft obese , (+) mild LLQ and umbilical TTP no edema non focal PAULINO CLARK Dec 11, 2016 22:25
== END 2016-12-11 13:36 | disposition home or self-care (01) | DRG 206 ==
LOC: EDBD 20:45 → EMR 21:12 → 2E 21:27 → EDBEDREQ 22:17
DX: M94.0 Chondrocostal junction syndrome [Tietze] (principal); G95.89 Other specified diseases of spinal cord; D68.69 Other thrombophilia; Z68.42 Body mass index [BMI] 45.0-49.9, adult; K57.92 Diverticulitis of intestine, part unspecified, without perforation or abscess without bleeding; I48.0 Paroxysmal atrial fibrillation; I48.92 Unspecified atrial flutter; R07.89 Other chest pain; K21.9 Gastro-esophageal reflux disease without esophagitis; I10 Essential (primary) hypertension; E66.9 Obesity, unspecified; M10.9 Gout, unspecified; E78.5 Hyperlipidemia, unspecified; Z95.0 Presence of cardiac pacemaker; G47.33 Obstructive sleep apnea (adult) (pediatric); R10.9 Unspecified abdominal pain; K42.9 Umbilical hernia without obstruction or gangrene; F41.0 Panic disorder [episodic paroxysmal anxiety]
CPT/HCPCS: 36415; 71010; 74020; 74177; 78452; 80048; 80053; 82550; 82553; 84484; 85025; 93005; 93017; 93970; J2405

== ENCOUNTER 2017-05-15 15:14 | Inpatient (IN) | payer MEDICARE, MEDICAID ==
[~2017-05-15] VITALS: Ht 170.2 cm; Wt 108.9 kg
[~2017-05-15 15:14] MED LIST changes: +CIPROFLOXACIN500 M2 ORAL; +FLAGYL500 MG ORAL
--- NOTE | 2017-05-15 15:28 | Emergency Room Report ---
History of Present Illness General Chief Complaint: Chest Pain Source: Patient Present Illness HPI 66 yo f with pmhx of HTN, DM, HLD, A. fib on aspirin with a pacemaker p/w chest pain for one day. Localized to right sided chest and substernal area, sharp in nature, describes it as "someone is sitting on my chest" lasted >1 hr. Occurred on rest. Also complains of SOB. Denies palpitations, diaphoresis, n/ v. Patient states that for she thought this was the shingles, but the pain felt very heavy on her chest Denies fever, chills, cough, abd pain. Denies trauma. Patient states that she had a cardiac catheterization within the last year and no stents were placed Allergies: Coded Allergies: NO KNOWN DRUG ALLERGIES (Unverified Allergy, Unknown, 04/24/14) Patient History Past Medical History: see triage record Past Surgical History: none Pertinent Family History: none Last Menstrual Period: n/a Reviewed Nursing Documentation: PMH: Agreed, PSxH: Agreed Nursing Documentation-PMH Past Medical History: No History, Except For Hx Cardiac Problems: Yes - PACEMAKER Hx Hypertension: Yes Hx Pacemaker: Yes Hx Asthma: Yes Hx COPD: No - hyperthyroidsm, gout Hx Diabetes: No Hx Cancer: Yes - S/P left arm melanoma removal Hx Gastrointestinal Problems: Yes - GOUT, acid reflex Hx Dialysis: No Hx Neurological Problems: Yes Hx Cerebrovascular Accident: No Hx Seizures: No Hx Dizziness: Yes Hx Headaches: Yes Review of Systems All Other Systems: negative except mentioned in HPI Physical Exam Vital Signs Date Time Temp Pulse Resp B/P (MAP) Pulse Ox O2 Delivery O2 Flow Rate FiO2 05/15/17 15:19 98.2 77 21 158/75 100 Room Air Sp02 EP Interpretation: reviewed, normal General Appearance: normal inspection, well appearing, no apparent distress, alert, GCS 15, non-toxic Head: normocephalic, atraumatic Eyes: bilateral eye normal inspection, bilateral eye PERRL, bilateral eye EOMI ENT: normal ENT inspection, normal pharynx, normal voice, moist mucus membranes Neck: normal inspection, full range of motion, supple Respiratory: normal inspection, lungs clear, normal breath sounds, no respiratory distress, no retraction, no wheezing, speaking full sentences, chest symmetrical Cardiovascular #1: normal inspection, regular rate, rhythm, no edema, normal capillary refill Cardiovascular #2: 2+ radial (R), 2+ radial (L) Gastrointestinal: normal inspection, non tender, soft, non-distended, no guarding Musculoskeletal: normal inspection, back normal, normal range of motion, non- tender Neurologic: normal inspection, alert, oriented x3, responsive, motor strength/ tone normal, sensory intact, normal gait, speech normal Psychiatric: normal inspection, judgement/insight normal, memory normal Skin: normal inspection, normal color, no rash, warm/dry, well hydrated, normal turgor Medical Decision Making Diagnostic Impression: Primary Impression: ACS (acute coronary syndrome) Additional Impressions: Atrial fibrillation S/P placement of cardiac pacemaker ER Course 66-year-old female with chest pain. DDX: ACS vs. CHF vs. pneumonia vs. gastritis/GERD vs. pneumothorax Plan: IV access, obtain labs including troponin, EKG, CXR ASA, pain control with nitro / morphine Anticipate admission ER course: Patient was treated with ASA, 162 as she took at home Labs- Troponin neg Patient has remained on a monitor, HD stable, chest pain improved. Disposition: Patient requires admission for chest pain. Patient requires admission for further workup, serial troponin, and possible stress test/cath inpatient. D/W hospitalist Dr. Cullen Willett who has accepted patient Please note that this Emergency Department Report was dictated using [employer] technology software, occasionally this can lead to erroneous entry secondary to interpretation by the dictation equipment. Laboratory Tests Test 05/15/17 15:39 White Blood Count 4.5 K/UL (4.8-10.8) L Red Blood Count 3.62 M/UL (4.20-5.40) L Hemoglobin 12.5 G/DL (12.0-16.0) Hematocrit 37.3 % (37.0-47.0) Mean Corpuscular Volume 103 FL (80-99) H Mean Corpuscular Hemoglobin 34.6 PG (27.0-31.0) H Mean Corpuscular Hemoglobin Concent 33.6 G/DL (32.0-36.0) Red Cell Distribution Width 12.3 % (11.6-14.8) Platelet Count 160 K/UL (150-450) Mean Platelet Volume 7.4 FL (6.5-10.1) Neutrophils (%) (Auto) 44.6 % (45.0-75.0) L Lymphocytes (%) (Auto) 43.5 % (20.0-45.0) Monocytes (%) (Auto) 7.2 % (1.0-10.0) Eosinophils (%) (Auto) 3.5 % (0.0-3.0) H Basophils (%) (Auto) 1.2 % (0.0-2.0) Sodium Level 143 mEQ/L (135-145) Potassium Level 4.3 mEQ/L (3.4-4.9) Chloride Level 100 mEQ/L (98-107) Carbon Dioxide Level 32 mEQ/L (20-30) H Anion Gap 11 (5-15) Blood Urea Nitrogen 15 mg/dL (7-23) Creatinine 1.4 mg/dL (0.5-0.9) H Estimate Glomerular Filtration Rate 45.3 mL/min (>60) Glucose Level 96 mg/dL (74-106) Calcium Level 9.3 mg/dL (8.6-10.2) Total Bilirubin 0.3 mg/dL (0.0-1.2) Aspartate Amino Transferase (AST) 20 U/L (5-40) Alanine Aminotransferase (ALT) 10 U/L (3-33) Alkaline Phosphatase 61 U/L (35-104) Total Creatine Kinase 113 U/L (26-140) Creatine Kinase MB < 1.5 ng/mL (< 3.8) Creatine Kinase MB Relative Index Troponin I < 0.30 ng/mL (<=0.30) Pro-B-Type Natriuretic Peptide 139 pg/mL (0-125) H Total Protein 7.1 g/dL (6.6-8.7) Albumin 3.9 g/dL (3.5-5.2) Globulin 3.2 g/dL Albumin/Globulin Ratio 1.2 (1.0-2.7) EKG Diagnostic Results Rate: normal Rhythm: other - V-paced ST Segments: other - atrial paced ASA given to the pt in ED: No Rhythm Strip Diag. Results EP Interpretation: yes Rate: 65 Rhythm: other - atrial paced Chest X-Ray Diagnostic Results Chest X-Ray Diagnostic Results : Chest X-Ray Ordered: Yes # of Views/Limited/Complete: 1 View Indication: Chest Pain EP Interpretation: Yes Interpretation: no consolidation, no effusion, no pneumothorax, other - Mild cardiomegaly, pacemaker left-sided chest Impression: Other - Mild cardiomegaly Electronically Signed by: Electronically signed by Marizol Hale MD Last Vital Signs Date Time Temp Pulse Resp B/P (MAP) Pulse Ox O2 Delivery O2 Flow Rate FiO2 05/15/17 15:19 98.2 77 21 158/75 100 Room Air Disposition: ADMITTED INPATIENT Condition: Serious Marizol Hale M.D. May 15, 2017 15:28
[2017-05-15] MEDS ORDERED: Aspirin Baby 81mg ORAL ONE (15:30)
[2017-05-15 15:49] LABS: BASOPHILS % (AUTO) 1.2 % (0.0-2.0); EOSINOPHILS % (AUTO) 3.5 % (0.0-3.0); LYMPHOCYTES % (AUTO) 43.5 % (20.0-45.0); MEAN CORPUSCULAR HEMOGLOBIN 34.6 PG (27.0-31.0); MEAN CORPUSCULAR HGB CONC 33.6 G/DL (32.0-36.0); MEAN CORPUSCULAR VOLUME 103 FL (80-99); MEAN PLATELET VOLUME 7.4 FL (6.5-10.1); MONOCYTES % (AUTO) 7.2 % (1.0-10.0); NEUTROPHILS % (AUTO) 44.6 % (45.0-75.0); PLATELET COUNT 160 K/UL (150-450); RED BLOOD COUNT 3.62 M/UL (4.20-5.40); RED CELL DISTRIBUTION WIDTH 12.3 % (11.6-14.8); WHITE BLOOD COUNT 4.5 K/UL (4.8-10.8)
[2017-05-15 16:05] LABS: TROPONIN I < 0.30 ng/mL (<=0.30)
[2017-05-15 16:08] LABS: ALANINE AMINOTRANSFERASE 10 U/L (3-33); ALBUMIN/GLOBULIN RATIO 1.2 (1.0-2.7); ANION GAP 11 (5-15); ASPARTATE AMINO TRANSFERASE 20 U/L (5-40); CALCIUM 9.3 mg/dL (8.6-10.2); CARBON DIOXIDE 32 mEQ/L (20-30); CHLORIDE 100 mEQ/L (98-107); CREATININE 1.4 mg/dL (0.5-0.9); GLOMERULAR FILTRATION RATE 45.3 mL/min (>60); HEMOLYSIS 34; POTASSIUM 4.3 mEQ/L (3.4-4.9); SODIUM 143 mEQ/L (135-145); TOTAL PROTEIN 7.1 g/dL (6.6-8.7)
[2017-05-15 16:33] LABS: CKMB < 1.5 ng/mL (< 3.8)
--- NOTE | 2017-05-15 16:40 | Diagnostic Imaging Report ---
Indication: Chest pain Comparison: 12/07/16 A single view chest radiograph was obtained. Findings: No definite infiltrate or pulmonary vascular congestion identified. Pacemakers present in the left. The heart is enlarged. The aorta is mildly enlarged consistent with atherosclerotic vascular disease. The bones are osteopenic. Impression: No acute disease
[2017-05-15] MEDS ORDERED: ALLOPURINOL100 M1 ORAL (17:05)
[2017-05-15] MEDS ORDERED: COLCRYS0.6 M1 PO (17:05)
[2017-05-15] MEDS ORDERED: ATENOLOL25 MG ORAL (17:05)
[2017-05-15] MEDS ORDERED: OMEPRAZOLE20 M3 ORAL (17:05)
[2017-05-15] MEDS ORDERED: ZOCOR10 MG ORAL (17:05)
[2017-05-15] MEDS ORDERED: ESCITALOPRAM OX10 MG ORAL (17:05)
[2017-05-15] MEDS ORDERED: VITAMIN B122500 MCG PO (17:05)
[2017-05-15] MEDS ORDERED: VITAMIN D400 INTLU ORAL (17:05)
[2017-05-15 17:09] VITALS: BP 147/72
--- NOTE | 2017-05-15 18:26 | Geriatric Progress Note ---
Subjective Interval Events Patient with three day history of pain, initially in R subscapular area, now also radiating into R submammary/inframammary area. No trauma, fever, MS strain. Thought to represent zoster without/before dermatologic lesion, however , sent to ED to r/o acute pulmonary or cardiac etiology. In ED reported chest pressure sensation to Dr. Hale, who recommended admission with serial enzymes. Patient with multiple episodes of chest pain, pressure, but with normal echo, cath in the past. Prior episode of apparent zoster in same general region without dermatitis in 2013, tx with Valcyclovir. Multiple other dxs currently controlled on present regimen. Allopurinol 300mg qd. ASA 81mg qd. Atenolol 25mg q12. D3 5000u daily. B12 1000mcg po dialy. Lexapro 5mg qd. Omeprazole 20 daily. Simvastatin 10mg qph. Tramadol 50mg q6 prn. PE: Hyperesthesia/dysesthesia in R subscapular area. Suspect zoster etiology. R/o ACS. Observation status on tele. Serial enzymes. Analgesia. Antiviral. Cardiology evaluation by Dr. Barrow. Monitor for skin lesions. Full code per patient election. Dictated #[id number] Geriatric Geriatric Last 24 Hour Vital Signs Date Time Temp Pulse Resp B/P (MAP) Pulse Ox O2 Delivery O2 Flow Rate FiO2 05/15/17 17:45 60 18 134/68 98 Room Air 05/15/17 17:09 98.2 60 11 147/72 99 Room Air 05/15/17 15:30 60 11 Room Air 05/15/17 15:19 98.2 77 21 158/75 100 Room Air Laboratory Tests Test 05/15/17 15:39 White Blood Count 4.5 K/UL (4.8-10.8) L Red Blood Count 3.62 M/UL (4.20-5.40) L Hemoglobin 12.5 G/DL (12.0-16.0) Hematocrit 37.3 % (37.0-47.0) Mean Corpuscular Volume 103 FL (80-99) H Mean Corpuscular Hemoglobin 34.6 PG (27.0-31.0) H Mean Corpuscular Hemoglobin Concent 33.6 G/DL (32.0-36.0) Red Cell Distribution Width 12.3 % (11.6-14.8) Platelet Count 160 K/UL (150-450) Mean Platelet Volume 7.4 FL (6.5-10.1) Neutrophils (%) (Auto) 44.6 % (45.0-75.0) L Lymphocytes (%) (Auto) 43.5 % (20.0-45.0) Monocytes (%) (Auto) 7.2 % (1.0-10.0) Eosinophils (%) (Auto) 3.5 % (0.0-3.0) H Basophils (%) (Auto) 1.2 % (0.0-2.0) Sodium Level 143 mEQ/L (135-145) Potassium Level 4.3 mEQ/L (3.4-4.9) Chloride Level 100 mEQ/L (98-107) Carbon Dioxide Level 32 mEQ/L (20-30) H Anion Gap 11 (5-15) Blood Urea Nitrogen 15 mg/dL (7-23) Creatinine 1.4 mg/dL (0.5-0.9) H Estimat Glomerular Filtration Rate 45.3 mL/min (>60) Glucose Level 96 mg/dL (74-106) Calcium Level 9.3 mg/dL (8.6-10.2) Total Bilirubin 0.3 mg/dL (0.0-1.2) Aspartate Amino Transf (AST/SGOT) 20 U/L (5-40) Alanine Aminotransferase (ALT/SGPT) 10 U/L (3-33) Alkaline Phosphatase 61 U/L (35-104) Total Creatine Kinase 113 U/L (26-140) Creatine Kinase MB < 1.5 ng/mL (< 3.8) Creatine Kinase MB Relative Index Troponin I < 0.30 ng/mL (<=0.30) Pro-B-Type Natriuretic Peptide 139 pg/mL (0-125) H Total Protein 7.1 g/dL (6.6-8.7) Albumin 3.9 g/dL (3.5-5.2) Globulin 3.2 g/dL Albumin/Globulin Ratio 1.2 (1.0-2.7) Height (Feet): 5 Height (Inches): 7.00 Weight (Pounds): 240 TRENT BURTON May 15, 2017 18:26
[2017-05-15] MEDS ORDERED: Norco 5mg/325mg tab ORAL PRN (18:45)
[2017-05-15] MEDS ORDERED: Nitroglycerin Subl 0.4mg tab (Bottle Of 25) SL PRN (18:45)
[2017-05-15 20:04] VITALS: BP 123/64
--- NOTE | 2017-05-15 20:08 | Cardiology Progress Note ---
Assessment/Plan Assessment/Plan chest wall syndrome obeisty trop in am if neg would not purusit further and would be ok to dc home may be with some nsaid [id number] Objective Last 24 Hour Vital Signs Date Time Temp Pulse Resp B/P (MAP) Pulse Ox O2 Delivery O2 Flow Rate FiO2 05/15/17 20:04 97.9 60 16 123/64 97 Room Air 05/15/17 17:45 60 18 134/68 98 Room Air 05/15/17 17:09 98.2 60 11 147/72 99 Room Air 05/15/17 15:30 60 11 Room Air 05/15/17 15:19 98.2 77 21 158/75 100 Room Air Laboratory Tests Test 05/15/17 15:39 White Blood Count 4.5 K/UL (4.8-10.8) L Red Blood Count 3.62 M/UL (4.20-5.40) L Hemoglobin 12.5 G/DL (12.0-16.0) Hematocrit 37.3 % (37.0-47.0) Mean Corpuscular Volume 103 FL (80-99) H Mean Corpuscular Hemoglobin 34.6 PG (27.0-31.0) H Mean Corpuscular Hemoglobin Concent 33.6 G/DL (32.0-36.0) Red Cell Distribution Width 12.3 % (11.6-14.8) Platelet Count 160 K/UL (150-450) Mean Platelet Volume 7.4 FL (6.5-10.1) Neutrophils (%) (Auto) 44.6 % (45.0-75.0) L Lymphocytes (%) (Auto) 43.5 % (20.0-45.0) Monocytes (%) (Auto) 7.2 % (1.0-10.0) Eosinophils (%) (Auto) 3.5 % (0.0-3.0) H Basophils (%) (Auto) 1.2 % (0.0-2.0) Sodium Level 143 mEQ/L (135-145) Potassium Level 4.3 mEQ/L (3.4-4.9) Chloride Level 100 mEQ/L (98-107) Carbon Dioxide Level 32 mEQ/L (20-30) H Anion Gap 11 (5-15) Blood Urea Nitrogen 15 mg/dL (7-23) Creatinine 1.4 mg/dL (0.5-0.9) H Estimat Glomerular Filtration Rate 45.3 mL/min (>60) Glucose Level 96 mg/dL (74-106) Calcium Level 9.3 mg/dL (8.6-10.2) Total Bilirubin 0.3 mg/dL (0.0-1.2) Aspartate Amino Transf (AST/SGOT) 20 U/L (5-40) Alanine Aminotransferase (ALT/SGPT) 10 U/L (3-33) Alkaline Phosphatase 61 U/L (35-104) Total Creatine Kinase 113 U/L (26-140) Creatine Kinase MB < 1.5 ng/mL (< 3.8) Creatine Kinase MB Relative Index Troponin I < 0.30 ng/mL (<=0.30) Pro-B-Type Natriuretic Peptide 139 pg/mL (0-125) H Total Protein 7.1 g/dL (6.6-8.7) Albumin 3.9 g/dL (3.5-5.2) Globulin 3.2 g/dL Albumin/Globulin Ratio 1.2 (1.0-2.7) AIDEN GUZMAN May 15, 2017 20:08
[2017-05-15] MEDS: Atenolol 25mg tab ORAL SCH (20:23)
[2017-05-15] MEDS: traMADol 50mg tab ORAL PRN (20:24)
[2017-05-15] MEDS ORDERED: Atorvastatin 20mg tab ORAL SCH (21:00)
[2017-05-15] MEDS: valACYclovir HCL 500mg tab ORAL SCH (22:01)
[2017-05-16 00:47] VITALS: BP 119/59
--- NOTE | 2017-05-16 04:30 | History and Physical Report ---
DATE OF ADMISSION: 05/15/2017 The patient is placed on observation status on 05/15/2017. Patient Identification: The patient is a 66-year-old woman who presents with right-sided chest pain and complained of pressure on her chest. History Of Present Illness: The patient has presented on a number of occasions with chest and abdominal pain. The etiology of these episodes has been varied and somewhat difficult to pinpoint at times. Because of concerns about cardiac ischemia, she has had outpatient workup and has had a cardiac catheterization sometime in the last year, which did not show occlusive disease. Some 3 years ago, the patient had an episode of right-sided chest pain, which was felt to be compatible with dermatomal pain suggestive of a zoster episode. No visible dermatitis was appreciated and the patient was treated with valacyclovir as well as pain medication, and the symptoms appeared to improve in a fashion compatible with a zoster episode, although no skin lesions developed. Notable at that time was an element of hyperesthesia and dysesthesia in the area of the pain. On the present occasion, the patient presented to the office today with complaints of approximately 3 days of pain, which initially subscapular in location on the right side and today radiated into the submammary or inframammary area. On examination in the office, the patient appeared generally cardiovascularly not in any distress, but with significant discomfort in the area described. No visible erythema, blistering or other skin changes were noted in this area; however, there was what appeared to be significant hyperesthesia and dysesthesia over the scapula. The patient, however, did complain also of some cough and some sensation of not breathing freely, and therefore, the patient was sent to the emergency room for further evaluation to rule out an acute cardiac or pulmonary etiology for these symptoms. In the emergency room, the patient apparently reported significant chest pressure to Dr. Hale, and ultimately Dr. Hale recommended acute coronary syndrome evaluation with serial enzymes. The patient is therefore now placed on observation status on telemetry with the intent to evaluate for acute coronary syndrome as well as to control her presenting symptoms. On examination, the patient is lying in the bed with her head elevated, appearing relatively comfortable, but complaining of significant discomfort in area, which may represent a dermatome in the T4-T6 range. Again, no visible skin lesions are noted, but the patient definitely has hyperesthesia and dysesthesia to stroking of the skin in the scapular area. The patient currently denies shortness of breath. Denies palpitations. She complains of a small amount of nausea, but has not had any vomiting. She denies specific abdominal pain. She reports no particular aches or pains in her lower extremities or her upper extremities, and reports no significant headache or neurologic focality. Other than the symptoms described, the patient reports she has been in her usual health. She denies any specific stress factors, which may have precipitated this episode at the present time. Past Medical History: The patient's past medical history is notable for hospitalization last in November 2016 at [facility] where she was evaluated for atypical chest and abdominal pain, thought to be primarily associated with diverticulitis. 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 History of gouty arthritis with acute gout attacks and evidence of tophi. Medications: Allopurinol 300 mg daily, aspirin 81 mg daily, Tenormin 25 mg q.12 h., vitamin B12 1000 mcg daily, Lexapro 5 mg daily, tramadol 50 mg q.6 h. p.r.n., omeprazole 20 mg daily, simvastatin 5 mg at bedtime, vitamin D3 5000 units daily, and nitroglycerin p.r.n. ALLERGIES: No known allergies. Social History: The patient was born in [place] with a college level education. 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 She is in 1971. She has 1 son and lives with her son in an apartment. There is no significant alcohol or tobacco history. Family History: Positive for mother dying at age 90 with heart disease and Alzheimer's disease. Her father at age 88 with heart disease. She had 1 brother who from a gunshot wound in 1970. Her son has a history of congestive heart failure, chronic obstructive lung disease, obstructive sleep apnea, asthma, obesity, cellulitis in the legs, and borderline diabetes. There is a history of pancreatic and liver cancer in her maternal uncle and a history of breast cancer in her paternal aunt as well as a history of substance abuse and alcohol. Review Of Systems: As stated above. The patient reports generally feeling well except for the significant pain as noted. She denies any current headache. She does report some type of pressure, but not really difficulty breathing. She denies palpitations or central or left-sided chest pain. She denies particular abdominal discomfort, but does note some nausea. She denies change in bowel or bladder habits or sleep pattern. PHYSICAL EXAMINATION: General: The patient is a well-developed, obese woman, not in acute distress except when experiencing the pain in her right chest. Vital Signs: The patient's blood pressure is 134/68, heart rate is 60 and regular, respiratory rate is 18, oxygen saturation is 98% on room air, and prior temperature is 98.2 degrees. Head And Neck: Normocephalic and atraumatic skull. Sclerae and conjunctivae are anicteric. The oropharynx is adequately hydrated. The neck reveals normal range of motion with no overt masses. BREASTS: Without focal masses or tenderness. NODES: No adenopathy appreciated. Chest: Reveals distant, but clear breath sounds throughout. The chest wall is notable for hyperesthesia and dysesthesia in the right scapular area. Abdomen: Reveals normal bowel sounds. Soft and nontender. There is a periumbilical hernia as well as some element of abdominal diastasis. No organomegaly or intra-abdominal masses are appreciated. Extremities: Reveal no evidence of acute synovitis. There is no significant peripheral edema at the present time. There is no calf tenderness, and range of motion in all extremities appears compatible with her baseline and relatively normal. Neurological: There is no evidence of any new focality and the patient's mentation seems compatible with her baseline. Laboratory And Diagnostic Data: The patient's white count is 4.5, hematocrit 37.3%, MCV 103, and platelet count is 160,000. The differential is relatively unremarkable. Sodium 143, potassium 4.3, chloride 100, bicarbonate 32, BUN 15, creatinine 1.4, glucose 96, calcium 9.3, total bilirubin 0.3, AST 20, ALT 10, alkaline phosphatase 61, total CK 113, MB less than 1.5, troponin less than 0.3, ProBNP 139, total protein 7.1, and albumin 3.9. Chest x-ray shows somewhat enlarged heart. Pacemaker present in the left paraclavicular area. There is no definite infiltrate or pulmonary vascular redistribution. Electrocardiogram is done and is reported to show no evidence of acute ischemia, but is not available for review at this moment. Impression: The patient presents with symptoms, which are somewhat atypical for cardiac etiology, but because of the symptoms reported in the emergency department, she is now placed on observation on telemetry and will have serial enzymes as well as a cardiac consultation. In the meantime, the most likely etiology compatible with a previous episode with a zoster exacerbation with no evidence of visible dermatitis at the present time. The patient will be treated with valacyclovir, somewhat dose adjusted because of renal function and analgesics. If there is no evidence of any acute coronary syndrome or decompensated cardiac or pulmonary disease, then likely the patient will be discharged from observation in approximately 24 hours. Obviously, further evaluation will depend on the patient's initial response to therapy and any consultative findings per Dr. Barrow. The patient understands the proposed plan of care and is in concurrence. She also verifies that she wishes to be Full Code at the present time. Cullen Willett M.D. DR: CARL JOB#: [id number] CC: [id number]
[2017-05-16 07:12] LABS: TROPONIN I < 0.30 ng/mL (<=0.30)
[2017-05-16 07:51] VITALS: BP 126/75
--- NOTE | 2017-05-16 08:03 | Consultation ---
DATE OF CONSULTATION: 05/15/2017 CARDIOLOGY CONSULTATION CONSULTING PHYSICIAN: Jose F Barrow M.D. REFERRING PHYSICIAN: Cullen iWllett M.D. REASON FOR REFERRAL: Chest pain. History of Present Illness: This is a 66-year-old female who is known to me from prior evaluation and hospitalization. The patient presented to the hospital because of pain in the right side of the back radiating down to the right side of the front, has been intermittently going on for the past week and persistently since yesterday. The only relieving or exacerbating factor that she has noted is with certain positional movement that makes the pain worse. She thought originally that this may be her shingles pain that is coming back again. She was evaluated in the emergency room and has been admitted for observation to rule out myocardial infarction. She really does not have any shortness of breath. There is no PND, although she uses three pillows to help with breathing. There is no dizziness on standing. She does have occasionally some shortness of breath on walking around to do some shopping, she rests and then she resumes again. There is no palpitations. No other symptoms. Past Medical History: Positive for history of hypertension, gastroesophageal reflux disease, permanent pacemaker implantation, history of borderline hypertension, history of gout, obesity, paroxysmal episodes of atrial fibrillation and flutter, hyperlipidemia, minimally elevated CPK on the statin therapy, sleep apnea, degenerative joint disease, umbilical hernia, panic attacks, recurrent headaches, urinary frequency, and B12 deficiency. She has got a dual-chamber [employer] pacemaker that was placed in July of 2013. ALLERGIES: She is not allergic to any medications. Family History: Positive for father with three-vessel coronary artery bypass grafting, however, at age 84. Brother was murdered. Mother had myocardial infarction at age 80. Social History: Two-pack smoking which she quit a few years ago. Does not drink alcoholic beverages. She lives at home. Review Of Systems: Gastrointestinal: She has been nauseated intermittently for the past few days. No diarrhea. No bloody or black stools. Genitourinary: Negative. Pulmonary: Occasional coughing. Constitutional: Negative except for occasional chills. Neurologic: Negative. PHYSICAL EXAMINATION: General: Morbidly obese, elderly female in no apparent respiratory distress. Vital Signs: Blood pressure 134/68 with a heart rate of 60, and temperature 98.2. NECK: Supple. No jugular venous distention. Lungs: Clear to auscultation and percussion. There is tenderness on palpation in the posterior chest wall as well as anterior chest wall to palpation. The anterior chest wall palpation seems to reproduce the pain that she has been experiencing since yesterday. Cardiac: Regular rate and rhythm. No heaves, thrills, or gallops noted. There is a systolic ejection murmur. ABDOMEN: Abdomen is obese. Positive bowel sounds. Nontender. EXTREMITIES: There is no clubbing, cyanosis, nor is there any edema. Neurological: She is awake, alert, responsive, in no apparent respiratory distress. Laboratory And Diagnostic Data: Laboratory values: White count of 4.5, hemoglobin 12.5, and platelet count of 160. Sodium is 143, potassium 4.3, chloride 100, bicarbonate 23, BUN 15, creatinine 1.4, glucose of 96, and calcium is 9.3. First set of cardiac enzymes negative. Natriuretic peptide is only 139. Her coags: INR is 1.0 and a PTT of 29. A chest x-ray performed in the emergency room shows no acute disease. She has had perfusion imaging here in November that showed nonischemic response to perfusion imaging. EKG shows atrial paced, ventricular sensed. No ST-T-wave abnormalities. ASSESSMENT AND PLAN: 1. Chest pain, reproducible on palpation of the chest wall. 2. Obesity. 3. History of hypertension. 4. History of shingles. Dr. Willett, this patient was seen in cardiac consultation. The patient's symptoms are atypical for coronary ischemic pain. The description of relieving or exacerbating factors are not in line with coronary ischemic pain and the pain is reproducible on palpation of chest wall suggestive that this is musculoskeletal pain. There are no other reported abnormalities on chest x-ray to suggest any bony abnormalities. Nevertheless, I doubt that this is cardiac ischemic pain. She will have another set of cardiac enzymes tomorrow morning. She has already had an ischemic evaluation four or five months ago that was negative. I do not favor any further workup at this time except for what has already been done or will be performed tomorrow morning. With respect to blood testing and if those blood tests are negative, she may be discharged home and she may follow up with me as an outpatient. If abnormalities do show up on those blood testing, I will consider further testing. Jose F Barrow M.D. DR: LUZ MARIA JOB#: [id number] CC:
[2017-05-16] MEDS: Allopurinol 100mg Tab ORAL SCH ×2 (08:54→12:20)
[2017-05-16] MEDS: valACYclovir HCL 500mg tab ORAL SCH (08:54)
[2017-05-16] MEDS: traMADol 50mg tab ORAL PRN (08:55)
[2017-05-16] MEDS ORDERED: Vitamin D 1000 IU Tab ORAL SCH (09:00)
[2017-05-16] MEDS ORDERED: Escitalopram Oxalate 5mg tab ORAL SCH (09:00)
[2017-05-16] MEDS ORDERED: Vitamin B-12 500mcg tab ORAL SCH (09:00)
[2017-05-16] MEDS ORDERED: Aspirin EC 81mg tab ORAL SCH (09:00)
[2017-05-16] MEDS: Atenolol 25mg tab ORAL SCH (09:01)
[2017-05-16 15:02] LABS: TROPONIN I < 0.30 ng/mL (<=0.30)
[2017-05-16 15:59] VITALS: BP 96/59
--- NOTE | 2017-05-16 16:18 | Geriatric Progress Note ---
Assessment/Plan Problems: (1) ACS (acute coronary syndrome) (2) Chest pain (3) Hypertension Assessment/Plan Zoster without dermatitis vs. mononeuropathy vs. ST strain. ACS r/o'ed. D/c on usual meds. Valacyclovir x 7d course. Analgesic balm prn. Reviewed with patient, concurs with d/c. Dictated #[id number] Discussed with: patient, family, hospital staff Subjective Interval Events Patient reports chest sxs better, scapular area still with tenderness, hyperesthesia, without dermatitis. Otherwise feels well. Eating well. Labs unremarkable with normal Troponins. Constitutional: Denies: chills, sweats, fever Respiratory: Denies: shortness of breath Cardiovascular: Denies: palpitations Gastrointestinal/Abdominal: Denies: abdominal pain, nausea, vomiting Genitourinary: Denies: dysuria Geriatric Geriatric Last 24 Hour Vital Signs Date Time Temp Pulse Resp B/P (MAP) Pulse Ox O2 Delivery O2 Flow Rate FiO2 05/16/17 15:59 97.7 60 18 96/59 96 Room Air 05/16/17 14:38 60 05/16/17 09:01 61 126/75 05/16/17 08:00 60 05/16/17 07:51 97.7 61 18 126/75 95 Room Air 05/16/17 04:00 60 05/16/17 00:47 97.2 60 16 119/59 97 Room Air 05/16/17 00:00 60 05/15/17 21:23 97.9 05/15/17 20:23 60 123/64 05/15/17 20:04 97.9 60 16 123/64 97 Room Air 05/15/17 20:00 70 05/15/17 17:45 60 18 134/68 98 Room Air 05/15/17 17:09 98.2 60 11 147/72 99 Room Air Intake and Output 05/16/17 05/17/17 19:00 07:00 Intake Total 340 ml Balance 340 ml Intake Oral 340 ml # Voids 7 Laboratory Tests Test 05/16/17 05:40 05/16/17 14:10 Troponin I < 0.30 ng/mL (<=0.30) < 0.30 ng/mL (<=0.30) Current Medications Medications (Trade) Dose Ordered Sig/Ganesh Route PRN Reason Start Time Stop Time Status Last Admin Dose Admin Acetaminophen (Tylenol) 650 mg Q4H PRN ORAL Mild Pain/Temp > 100.5 05/15/17 18:45 06/14/17 18:44 Acetaminophen/ Hydrocodone Bitart (Cromwell 5/325) 1 tab Q6H PRN ORAL Moderate Pain (Pain Scale 4-6) 05/15/17 18:45 05/22/17 18:44 Allopurinol (Zyloprim) 100 mg TID ORAL 05/16/17 09:00 06/15/17 08:59 05/16/17 12:20 Aspirin (Ecotrin) 81 mg DAILY ORAL 05/16/17 09:00 06/15/17 08:59 05/16/17 08:53 Atenolol (Tenormin) 25 mg EVERY 12 HOURS ORAL 05/15/17 21:00 06/14/17 20:59 05/16/17 09:01 Atorvastatin Calcium (Lipitor) 20 mg BEDTIME ORAL 05/15/17 21:00 06/14/17 20:59 05/15/17 20:22 Cyanocobalamin (Vitamin B-12) 1,000 mcg DAILY ORAL 05/16/17 09:00 06/15/17 08:59 05/16/17 08:54 Escitalopram Oxalate (Lexapro) 5 mg DAILY ORAL 05/16/17 09:00 06/15/17 08:59 Nitroglycerin (Ntg) 0.4 mg Q5M PRN SL Prn Chest Pain 05/15/17 18:45 06/14/17 18:44 Pantoprazole (Protonix) 40 mg DAILY ORAL 05/16/17 09:00 06/15/17 08:59 05/16/17 08:53 Tramadol HCl (Ultram) 50 mg Q6H PRN ORAL Severe Pain (Pain Scale 7-10) 05/15/17 18:45 05/22/17 18:44 05/16/17 08:55 Valacyclovir HCl (Valtrex) 1,000 mg EVERY 12 HOURS ORAL 05/15/17 21:00 06/14/17 20:59 05/16/17 08:54 Vitamin D (Vitamin D) 5,000 intlu DAILY ORAL 05/16/17 09:00 06/15/17 08:59 9/15/17 10:23 Height (Feet): 5 Height (Inches): 7.00 Weight (Pounds): 240 General Appearance: no apparent distress, alert, non-toxic Head: normocephalic, atraumatic Eyes: bilateral anicteric ENT: normal voice Neck: full range of motion, no mass Respiratory: lungs clear, decreased breath sounds Cardiovascular: regular rate, rhythm Gastrointestinal: normal bowel sounds, non tender, soft, no mass, no organomegaly, no bruit, non-distended, no guarding Musculoskeletal: no calf tenderness Edema: no edema noted Generalized TRENT BURTON May 16, 2017 16:18
[2017-05-16] MEDS ORDERED: VALTREX500 MG ORAL (16:21)
--- NOTE | 2017-05-16 17:00 | Cardiology Progress Note ---
Assessment/Plan Assessment/Plan chest wall syndrome obeisty hypotension all trop neg she is warma dn sweating temp in the room is warm but nto that bad check orthosttic vitals prior to dc ivf if positive tele reviwed ekg reviewed labs reviewed ns bolus Subjective Cardiovascular: Reports: chest pain, Denies: lightheadedness, palpitations Respiratory: Denies: shortness of breath Gastrointestinal/Abdominal: Denies: abdomen distended Genitourinary: Denies: burning Subjective warm adn sweatign has been walking to br without any problmes Objective Last 24 Hour Vital Signs Date Time Temp Pulse Resp B/P (MAP) Pulse Ox O2 Delivery O2 Flow Rate FiO2 05/16/17 15:59 97.7 60 18 96/59 96 Room Air 05/16/17 14:38 60 05/16/17 09:01 61 126/75 05/16/17 08:00 60 05/16/17 07:51 97.7 61 18 126/75 95 Room Air 05/16/17 04:00 60 05/16/17 00:47 97.2 60 16 119/59 97 Room Air 05/16/17 00:00 60 05/15/17 21:23 97.9 05/15/17 20:23 60 123/64 05/15/17 20:04 97.9 60 16 123/64 97 Room Air 05/15/17 20:00 70 05/15/17 17:45 60 18 134/68 98 Room Air 05/15/17 17:09 98.2 60 11 147/72 99 Room Air General Appearance: no apparent distress, other - sweaty Neck: supple Cardiovascular: normal rate, regular rhythm Respiratory/Chest: lungs clear, normal breath sounds Abdomen: normal bowel sounds, non tender, soft Extremities: no swelling Intake and Output 05/16/17 05/17/17 19:00 07:00 Intake Total 340 ml Balance 340 ml Intake Oral 340 ml # Voids 7 Laboratory Tests Test 05/16/17 05:40 05/16/17 14:10 Troponin I < 0.30 ng/mL (<=0.30) < 0.30 ng/mL (<=0.30) AIDEN GUZMAN May 16, 2017 17:00
--- NOTE | 2017-05-17 06:30 | Discharge Summary ---
DATE OF ADMISSION: 05/15/2017 DATE OF DISCHARGE: 05/16/2017 The patient was placed on observation status on 05/15/2017 and discharged on 05/16/2017. DISCHARGE DIAGNOSES: 1. Atypical chest pain with scapular hyperesthesia on the right suspect of zoster without dermatologic findings. Consider mononeuritis of uncertain etiology. Consider soft tissue strain. 2. Acute coronary syndrome ruled out. 3. Prior episodes of atypical chest pain and abdominal pain. 4. Hypertension. 5. Hyperlipidemia. 6. Obesity. 7. Obstructive sleep apnea. 8. Degenerative joint disease. 9. Gastrointestinal reflux disease. 10. 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 11. History of panic attacks. 12. History of headaches. 13. Status post tonsillectomy with cyst removal. 14. Status post hysteroscopy. 15. Paroxysmal atrial fibrillation and flutter requiring pacemaker insertion. 16. Abdominal diastasis. 17. Periumbilical hernia. 18. Normal cardiac catheterization. 19. Prior episode of similar symptoms felt to be associated with zoster. History Of Present Illness: The patient is a 66-year-old woman who presented with a 3-day history of progressive discomfort in a dermatomal distribution in the right chest somewhere in the T4-T6 range. Of note, it was significant hyperesthesia posteriorly over the scapular area. The patient had a similar episode approximately three years ago, which was treated with Valtrex and analgesics and resolved without complication. On this occasion, because the patient also complained of some cough and some pulmonary symptoms, the patient was sent from the office to the emergency department. In the emergency department, she also complained apparently of chest pressure to Dr. Hale and was therefore felt to require evaluation for acute coronary syndrome. The patient was placed on observation on telemetry and had serial troponins ordered. BNP and CK levels were all unremarkable and the patient otherwise had no elevation of white count or evidence of other metabolic abnormality. Chest x-ray was unremarkable. EKG was unremarkable. Ultimately, it was felt that the patient likely had same type of syndrome in the past - possibly a zoster presentation prior to dermatologic outbreak or without dermatologic outbreak versus some sort of mononeuritis of uncertain etiology versus some type of soft tissue injury. It is felt that the patient is now stable to return home. She will be given the rest of a 7-day course of Valtrex for possible zoster, and also was encouraged to use analgesic balm to the area as necessary for further relief. Otherwise, the patient will be continued on her usual therapies and follow up as an outpatient. Medications On Discharge: Include allopurinol 300 mg daily, aspirin 81 mg daily, Tenormin 25 mg q.12 h., vitamin B12 100 mcg daily, Lexapro 5 mg daily, tramadol 50 mg q.6 h. p.r.n., omeprazole 20 mg daily, simvastatin 5 mg at bedtime, vitamin D3 5000 units daily, nitroglycerin p.r.n., and valacyclovir 1000 mg q.12 h. for additional 6 days. Cullen Willett M.D. DR: JOSE JOB#: [id number] CC: FRANCISCA
--- NOTE | 2017-05-18 15:59 | Cardiology Report ---
APPROVED REPORT EKG Measurement Heart [id number] Atrial pacing Abnormal ECG
== END 2017-05-16 17:30 | disposition home or self-care (01) | DRG 866 ==
LOC: EMR 15:45 → EDBEDREQ 16:40 → 2E 16:42 → EDBEDREQ 16:53
DX: B02.8 Zoster with other complications (principal); I48.0 Paroxysmal atrial fibrillation; I10 Essential (primary) hypertension; E11.9 Type 2 diabetes mellitus without complications; G58.8 Other specified mononeuropathies; E03.9 Hypothyroidism, unspecified; R07.89 Other chest pain; E66.9 Obesity, unspecified; G47.33 Obstructive sleep apnea (adult) (pediatric); M19.90 Unspecified osteoarthritis, unspecified site; K21.9 Gastro-esophageal reflux disease without esophagitis; M46.1 Sacroiliitis, not elsewhere classified; Z95.0 Presence of cardiac pacemaker; Z68.37 Body mass index [BMI] 37.0-37.9, adult; Z79.82 Long term (current) use of aspirin
CPT/HCPCS: 36415; 71010; 80053; 82550; 82553; 83880; 84484; 85025; 93005; 99285

== ENCOUNTER → 2017-07-31 | Outpatient (CLI) | payer MEDICARE, MEDICAID ==
[~2017-07-31] MED LIST changes: +ATENOLOL25 MG ORAL; +COLCRYS0.6 M1 PO; +ESCITALOPRAM OX10 MG ORAL; +NITROGLYCERIN2.5 M1 PO; +OMEPRAZOLE20 M3 ORAL; +VALTREX500 MG ORAL; +VITAMIN B122500 MCG PO; +VITAMIN D400 INTLU ORAL; +ZOCOR10 MG ORAL
[2017-07-31 16:41] LABS: BASOPHILS % (AUTO) 0.9 % (0.0-2.0); EOSINOPHILS % (AUTO) 3.5 % (0.0-3.0); LYMPHOCYTES % (AUTO) 35.1 % (20.0-45.0); MEAN CORPUSCULAR HEMOGLOBIN 32.7 PG (27.0-31.0); MEAN CORPUSCULAR HGB CONC 31.9 G/DL (32.0-36.0); MEAN CORPUSCULAR VOLUME 102 FL (80-99); MEAN PLATELET VOLUME 7.1 FL (6.5-10.1); MONOCYTES % (AUTO) 7.3 % (1.0-10.0); NEUTROPHILS % (AUTO) 53.2 % (45.0-75.0); PLATELET COUNT 226 K/UL (150-450); RED BLOOD COUNT 3.93 M/UL (4.20-5.40); RED CELL DISTRIBUTION WIDTH 11.9 % (11.6-14.8); WHITE BLOOD COUNT 5.2 K/UL (4.8-10.8)
[2017-07-31 16:44] LABS: ALANINE AMINOTRANSFERASE 17 U/L (12-78); ALBUMIN/GLOBULIN RATIO 0.7 (1.0-2.7); ANION GAP 7 mmol/L (5-15); ASPARTATE AMINO TRANSFERASE 21 U/L (15-37); CALCIUM 9.7 MG/DL (8.5-10.1); CARBON DIOXIDE 31 MMOL/L (21-32); CHLORIDE 102 MMOL/L (98-107); CREATININE 1.8 MG/DL (0.55-1.30); GLOMERULAR FILTRATION RATE 33.9 mL/min (>60); POTASSIUM 4.1 MMOL/L (3.5-5.1); SODIUM 140 MMOL/L (136-145); TOTAL PROTEIN 8.2 G/DL (6.4-8.2)
== END | disposition home or self-care (01) ==
LOC: LAB 15:46
DX: N39.0 Urinary tract infection, site not specified (principal); R11.2 Nausea with vomiting, unspecified
CPT/HCPCS: 36415; 80053; 85025; 87040

== ENCOUNTER 2017-08-06 10:25 | Emergency (ER) | payer MEDICAID, MEDICARE ==
[~2017-08-06] VITALS: Ht 170.2 cm; Wt 104.3 kg
[~2017-08-06 10:25] MED LIST changes: -NITROGLYCERIN2.5 M1 PO
[2017-08-06 10:31] VITALS: BP 149/77
--- NOTE | 2017-08-06 10:54 | Emergency Room Report ---
History of Present Illness General Chief Complaint: Abnormal Labs Source: Medical Record Present Illness HPI Patient is a 66-year-old female called in by primary medical doctor. Patient was noted to have a prior history of urinary infection. Patient was noted to be having increased left-sided flank pain. She reportedly had recently been given Rocephin for urinary tract infection. Patient had prior history of atrial fibrillation pacemaker placement. She reports having Increased pain to her left flank. She reported having some suprapubic pain. The patient denied any pain to her hernia or vomiting. Patient prior history of ventral hernia Allergies: Coded Allergies: NO KNOWN DRUG ALLERGIES (Unverified Allergy, Unknown, 04/24/14) Patient History Past Surgical History: pacemaker Reviewed Nursing Documentation: PMH: Agreed, PSxH: Agreed Nursing Documentation-PMH Past Medical History: No History, Except For Hx Cardiac Problems: Yes - PACEMAKER Hx Hypertension: Yes Hx Pacemaker: Yes Hx Asthma: Yes Hx COPD: No - hyperthyroidsm, gout Hx Diabetes: No Hx Cancer: Yes - S/P left arm melanoma removal Hx Gastrointestinal Problems: Yes - GOUT, acid reflex Hx Dialysis: No Hx Neurological Problems: Yes Hx Cerebrovascular Accident: No Hx Seizures: No Hx Dizziness: Yes Hx Headaches: Yes Physical Exam Vital Signs Date Time Temp Pulse Resp B/P (MAP) Pulse Ox O2 Delivery O2 Flow Rate FiO2 08/06/17 10:31 97.5 83 16 149/77 94 Room Air Medical Decision Making Diagnostic Impression: Primary Impression: Abdominal discomfort in left flank Additional Impression: Diverticular disease ER Course Patient is 66-year-old female presented for increased left flank pain. Differential diagnosis included was not limited to pneumonia, renal stone, rib fracture, pulmonary embolism, ulcer, enteritis, pyelonephritis among others. The patient was noted to have previous imaging studies for months ago which showed a right renal stone as well as diverticular disease. Because of complexity of patient's case laboratory testing and imaging studies were ordered. EKG interpreted by me showed paced rhythm without acute ST or T wave changes. Laboratory testing showed no evidence of urinary infection. Patient was given prescription for Colace. She is advised to follow up with Dr. Willett for outpatient ultrasound. The patient is advised to follow up with primary care doctor in 1-2 days. Patient is advised to return if any worsening condition or if any changes in status that are concerning. Labs Test 08/06/17 10:45 08/06/17 11:15 Urine Color Pale yellow Urine Appearance Clear Urine pH 6.5 (4.5-8.0) Urine Specific [place] 1.010 (1.005-1.035) Urine Protein Negative (NEGATIVE) Urine Glucose (UA) Negative (NEGATIVE) Urine Ketones Negative (NEGATIVE) Urine Occult Blood Negative (NEGATIVE) Urine Nitrite Negative (NEGATIVE) Urine Bilirubin Negative (NEGATIVE) Urine Urobilinogen Normal MG/DL (0.0-1.0) Urine Leukocyte Esterase Negative (NEGATIVE) White Blood Count 5.7 K/UL (4.8-10.8) Red Blood Count 3.74 M/UL (4.20-5.40) Hemoglobin 11.4 G/DL (12.0-16.0) Hematocrit 38.9 % (37.0-47.0) Mean Corpuscular Volume 104 FL (80-99) Mean Corpuscular Hemoglobin 30.6 PG (27.0-31.0) Mean Corpuscular Hemoglobin Concent 29.4 G/DL (32.0-36.0) Red Cell Distribution Width 12.6 % (11.6-14.8) Platelet Count 261 K/UL (150-450) Mean Platelet Volume 6.2 FL (6.5-10.1) Neutrophils (%) (Auto) 61.9 % (45.0-75.0) Lymphocytes (%) (Auto) 30.5 % (20.0-45.0) Monocytes (%) (Auto) 4.9 % (1.0-10.0) Eosinophils (%) (Auto) 1.8 % (0.0-3.0) Basophils (%) (Auto) 0.9 % (0.0-2.0) Sodium Level 140 MMOL/L (136-145) Potassium Level 4.3 MMOL/L (3.5-5.1) Chloride Level 102 MMOL/L (98-107) Carbon Dioxide Level 33 MMOL/L (21-32) Anion Gap 5 mmol/L (5-15) Blood Urea Nitrogen 16 mg/dL (7-18) Creatinine 1.3 MG/DL (0.55-1.30) Estimat Glomerular Filtration Rate 49.3 mL/min (>60) Glucose Level 120 MG/DL (74-106) Lactic Acid Level 1.40 mmol/L (0.66-2.22) Calcium Level 9.3 MG/DL (8.5-10.1) Total Bilirubin 0.4 MG/DL (0.2-1.0) Aspartate Amino Transf (AST/SGOT) 21 U/L (15-37) Alanine Aminotransferase (ALT/SGPT) 16 U/L (12-78) Alkaline Phosphatase 57 U/L (46-116) Total Creatine Kinase 171 U/L (26-308) Creatine Kinase MB 2.2 NG/ML (0.0-3.6) Creatine Kinase MB Relative Index 1.2 Troponin I 0.000 ng/mL (0.000-0.056) Pro-B-Type Natriuretic Peptide 118 pg/mL (0-125) Total Protein 7.7 G/DL (6.4-8.2) Albumin 3.3 G/DL (3.4-5.0) Globulin 4.4 g/dL Albumin/Globulin Ratio 0.8 (1.0-2.7) EKG Diagnostic Results Rate: other - pace Last Vital Signs Date Time Temp Pulse Resp B/P (MAP) Pulse Ox O2 Delivery O2 Flow Rate FiO2 08/06/17 10:31 97.5 83 16 149/77 94 Room Air Status: improved Disposition: HOME, SELF-CARE Condition: Stable Scripts Docusate Sodium* (COLACE*) 100 Mg Capsule 100 MG ORAL TWICE A DAY, #30 CAP Prov: Geovanni Ward 08/06/17 Geovanni Ward Aug 06, 2017 10:54
[2017-08-06 11:00] LABS: APPEARANCE,URINE CLEAR; KETONES,URINE NEGATIVE (NEGATIVE); LEUKOCYTE ESTERASE ,URINE NEGATIVE (NEGATIVE); NITRITE,URINE NEGATIVE (NEGATIVE); PH,URINE 6.5 (4.5-8.0); PROTEIN,URINE NEGATIVE (NEGATIVE); UROBILINOGEN,URINE NORMAL MG/DL (0.0-1.0)
[2017-08-06] MEDS ORDERED: NITROGLYCERIN2.5 M1 PO (11:06)
[2017-08-06 11:37] LABS: BASOPHILS % (AUTO) 0.9 % (0.0-2.0); EOSINOPHILS % (AUTO) 1.8 % (0.0-3.0); LYMPHOCYTES % (AUTO) 30.5 % (20.0-45.0); MEAN CORPUSCULAR HEMOGLOBIN 30.6 PG (27.0-31.0); MEAN CORPUSCULAR HGB CONC 29.4 G/DL (32.0-36.0); MEAN CORPUSCULAR VOLUME 104 FL (80-99); MEAN PLATELET VOLUME 6.2 FL (6.5-10.1); MONOCYTES % (AUTO) 4.9 % (1.0-10.0); NEUTROPHILS % (AUTO) 61.9 % (45.0-75.0); PLATELET COUNT 261 K/UL (150-450); RED BLOOD COUNT 3.74 M/UL (4.20-5.40); RED CELL DISTRIBUTION WIDTH 12.6 % (11.6-14.8); WHITE BLOOD COUNT 5.7 K/UL (4.8-10.8)
[2017-08-06 11:45] VITALS: BP 128/65
[2017-08-06 12:04] LABS: ANION GAP 5 mmol/L (5-15); CALCIUM 9.3 MG/DL (8.5-10.1); CARBON DIOXIDE 33 MMOL/L (21-32); CHLORIDE 102 MMOL/L (98-107); CREATININE 1.3 MG/DL (0.55-1.30); GLOMERULAR FILTRATION RATE 49.3 mL/min (>60); POTASSIUM 4.3 MMOL/L (3.5-5.1); SODIUM 140 MMOL/L (136-145)
--- NOTE | 2017-08-06 12:04 | Diagnostic Imaging Report ---
Indication: SOB Technique: One view of the chest Comparison: 05/15/2017 Findings: Left chest bifocal pacemaker again demonstrated. Lungs and pleural spaces are clear. The heart size is normal. No significant interim change Impression: No acute process
[2017-08-06 12:27] LABS: ALANINE AMINOTRANSFERASE 16 U/L (12-78); ALBUMIN/GLOBULIN RATIO 0.8 (1.0-2.7); ASPARTATE AMINO TRANSFERASE 21 U/L (15-37); CKMB 2.2 NG/ML (0.0-3.6); TOTAL PROTEIN 7.7 G/DL (6.4-8.2)
[2017-08-06 12:45] VITALS: BP 130/61
[2017-08-06] MEDS ORDERED: COLACE100 MG ORAL (13:12)
[2017-08-06 14:01] VITALS: BP 115/72
[2017-08-06 14:09] VITALS: BP 115/72
--- NOTE | 2017-08-06 15:58 | Diagnostic Imaging Report ---
Indication: Abdominal pain Technique: Supine view of the abdomen Comparison: 12/09/2016 Findings: There is a gastrostomy tube, relation to the gastric lumen indeterminate in the absence of contrast administration. Bowel gas pattern is unremarkable. There are again demonstrated severe degenerative changes of the bilateral sacroiliac joints. No unusual masses or calcifications. Pacemaker wires are again demonstrated in the heart Impression: No acute process. Findings as noted
--- NOTE | 2017-08-08 11:36 | Cardiology Report ---
APPROVED REPORT EKG Measurement Heart [id number] CA [id number] [id number] Atrial pacemaker Possible inferior infarct, age undetermined Abnormal ECG
== END 2017-08-06 14:09 | disposition home or self-care (01) ==
LOC: EMR 11:20 → CANBEDREQ 14:08 → EMR 14:09
DX: K57.30 Diverticulosis of large intestine without perforation or abscess without bleeding (principal); I10 Essential (primary) hypertension; Z95.0 Presence of cardiac pacemaker; J45.909 Unspecified asthma, uncomplicated; Z85.820 Personal history of malignant melanoma of skin; Z87.440 Personal history of urinary (tract) infections
CPT/HCPCS: 36415; 71010; 74000; 80053; 81003; 82550; 82553; 83605; 83880; 84484; 85025; 87040; 93005; 99284

== ENCOUNTER 2018-02-10 10:13 | Inpatient (IN) | payer MEDICARE, MEDICAID ==
[2018-02-06 09:52] LABS: APPEARANCE,URINE SLIGHTLY CLOUDY; BILIRUBIN, URINE NEGATIVE (NEGATIVE); COLOR,URINE PALE YELLOW; GLUCOSE, URINE (UA) NEGATIVE (NEGATIVE); KETONES,URINE NEGATIVE (NEGATIVE); LEUKOCYTE ESTERASE ,URINE NEGATIVE (NEGATIVE); NITRITE,URINE NEGATIVE (NEGATIVE); PH,URINE 5 (4.5-8.0); PROTEIN,URINE NEGATIVE (NEGATIVE); UROBILINOGEN,URINE NORMAL MG/DL (0.0-1.0)
[2018-02-06 10:14] LABS: BASOPHILS % (AUTO) 1.9 % (0.0-2.0); EOSINOPHILS % (AUTO) 4.6 % (0.0-3.0); HEMATOCRIT 43.3 % (37.0-47.0); HEMOGLOBIN 14.1 G/DL (12.0-16.0); MEAN CORPUSCULAR VOLUME 101 FL (80-99); MONOCYTES % (AUTO) 4.3 % (1.0-10.0); NEUTROPHILS % (AUTO) 48.2 % (45.0-75.0); PLATELET COUNT 114 K/UL (150-450); RED BLOOD COUNT 4.27 M/UL (4.20-5.40); RED CELL DISTRIBUTION WIDTH 12.4 % (11.6-14.8); WHITE BLOOD COUNT 4.1 K/UL (4.8-10.8)
[2018-02-06 10:54] LABS: ALANINE AMINOTRANSFERASE 30 U/L (12-78); ALBUMIN 3.9 G/DL (3.4-5.0); ALBUMIN/GLOBULIN RATIO 0.9 (1.0-2.7); ALKALINE PHOSPHATASE 88 U/L (46-116); ANION GAP 8 mmol/L (5-15); ASPARTATE AMINO TRANSFERASE 27 U/L (15-37); BILIRUBIN,TOTAL 0.4 MG/DL (0.2-1.0); BLOOD UREA NITROGEN 25 mg/dL (7-18); CARBON DIOXIDE 30 MMOL/L (21-32); CHLORIDE 103 MMOL/L (98-107); CREATININE 1.5 MG/DL (0.55-1.30); POTASSIUM 3.8 MMOL/L (3.5-5.1); SODIUM 141 MMOL/L (136-145)
--- NOTE | 2018-02-06 12:38 | Diagnostic Imaging Report ---
Indication: Dyspnea Comparison: 08/06/2017 2 views of the chest obtained. Findings: Lungs are clear. Heart is mildly enlarged. Pacemaker again noted on the left. Bones are osteopenic. IMPRESSION: No acute findings
--- NOTE | 2018-02-06 17:00 | Pre-op HX & Phy Repo 2 SIG ---
DATE OF ADMISSION: 02/10/2018 HISTORY OF PRESENT ILLNESS: The patient is a 67-year-old, female in stable health with a recent onset umbilical hernia with progressive symptoms especially with straining. The patient is scheduled to undergo repair of her umbilical hernia. PAST MEDICAL HISTORY: MEDICATIONS: Atenolol, allopurinol, baby aspirin, vitamin B12 injections, Zocor, Prilosec, nitroglycerin p.r.n., tramadol, Aleve, allopurinol, Colcrys, escitalopram, and vitamin D. ALLERGIES TO MEDICATIONS: None. OPERATIONS: Resection of ovarian cyst in 1965, D and C in 2014. REVIEW OF SYSTEMS: The patient has a pacemaker and has history of atrial fibrillation. PHYSICAL EXAMINATION: GENERAL: She is 5 feet 7 inches, 230 pounds. ABDOMEN: Obese. There is a 5 x 6 cm, chronically incarcerated umbilical hernia with increasing bulge with straining. There is no erythema and scant tenderness. IMPRESSION: Symptomatic umbilical hernia. PLAN: Full discussion has been had with the patient regarding the nature of the surgery, the nature of her condition, indications for surgery, alternative options and risks including bleeding, infection, recurrence with or without use of mesh, scarring, injury to adjacent structures or organs, anesthetic reactions, deep vein thrombosis despite prophylaxis, etc. All questions have been answered. She understands and agrees to proceed under general anesthesia with 23-hour observation postoperatively. Tee Agustin M.D. DR: CODY JOB#: [id number] CC:
--- NOTE | 2018-02-06 19:44 | Cardiology Report ---
APPROVED REPORT EKG Measurement Heart [id number] AR 182P [id number] atrail pacing
[2018-02-10] VITALS (14 sets, daily range): BP systolic 120–144; BP diastolic 61–82
[~2018-02-10] VITALS: Ht 170.2 cm; Wt 96.6 kg
[~2018-02-10 10:13] MED LIST changes: +NITROGLYCERIN2.5 M1 PO; +ceFAZolin sod 2 GM in D5W 110 ML IVPB ONE
--- NOTE | 2018-02-10 11:32 | Pre-Procedure Note/Attestation ---
Pre-Procedure Note/Attestation Complete Prior to Procedure Planned Procedure: not applicable Procedure Narrative: repair of umbilical hernia Indications for Procedure Pre-Operative Diagnosis: umbilical hernia Attestation I attest that I discussed the nature of the procedure; its benefits; risks and complications; and alternatives (and the risks and benefits of such alternatives ), prior to the procedure, with the patient (or the patient's legal client care representative). I attest that, if there was a reasonable possibility of needing a blood transfusion, the patient (or the patient's legal client care representative) was given the [facility] standardized written summary, pursuant to the Fei [place]ver[place] Blood Safety Act ([place] Health and Safety Code # 1645, as amended). I attest that I re-evaluated the patient just prior to the surgery and that there has been no change in the patient's H&P, except as documented below: none Tee Agustin MD Feb 10, 2018 11:32
[2018-02-10] MEDS ORDERED: COLACE100 MG ORAL (11:33)
[2018-02-10] MEDS ORDERED: Bupivacaine 0.5% Inj 30 ml vial INJ ONE (12:42)
[2018-02-10] MEDS ORDERED: Lidocaine 1% Plain 30 ml INJ ONE (12:42)
[2018-02-10] MEDS ORDERED: Bacitracin 50000 Units Vial ONE (12:42)
[2018-02-10] MEDS ORDERED: Zemuron 50mg/5ml Inj IV ONE (12:50)
[2018-02-10] MEDS ORDERED: Lidocaine 1% MPF 10mg/ml 5ml ONE (12:52)
[2018-02-10] MEDS ORDERED: Propofol 200mg/20ml IV ONE (12:52)
[2018-02-10] MEDS ORDERED: fentaNYL 100 mcg/2 mL IV ONE ×2 (12:53→14:02)
[2018-02-10] MEDS ORDERED: Midazolam 2mg/2ml Inj ONE (12:55)
[2018-02-10] MEDS ORDERED: LR 1000ml 1,000 ML IVLG SCH (13:34)
--- NOTE | 2018-02-10 13:34 | Anethesia Preoperative Eval ---
Anesthesia Pre-op PMH/ROS General Date of Evaluation: Feb 10, 2018 Time of Evaluation: 12:45 Anesthesiologist: ASA Score: ASA 4 Mallampati Score Class I : Soft palate, uvula, fauces, pillars visible Class II: Soft palate, uvula, fauces visible Class III: Soft palate, base of uvula visible Class IV: Only hard plate visible Mallampati Classification: Class III Surgeon: tereza Diagnosis: umbilical hernia Surgical Procedure: repair umbilical hernia Anesthesia History: none Family History: no anesthesia problems Allergies: Coded Allergies: NO KNOWN DRUG ALLERGIES (Unverified Allergy, Unknown, 02/10/18) Past Medical History Cardiovascular: Reports: HTN, other - acute coonay syndrome, pacemaker, paroxymal A fib; Denies: CAD, PA, valve dz, arrhythmia Pulmonary: Reports: asthma, COPD, MALINDA; Denies: other Gastrointestinal/Genitourinary: Reports: GERD; Denies: CRI, ESRD, other Endocrine: Reports: hypothyroidism; Denies: DM, steroids, other HEENT: Denies: cataract (L), cataract (R), glaucoma, [place] (L), [place] (R), other Musculoskeletal/Integumentary: Denies: OA, RA, DJD, DDD, edema, other Other: obesity, other - gout PSxH Narrative: pacemaker 2013 ovarian cyst removal Anesthesia Pre-op Phys. Exam Physician Exam Last Vital Signs Date Time Temp Pulse Resp B/P (MAP) Pulse Ox O2 Delivery O2 Flow Rate FiO2 02/10/18 11:22 97.2 67 18 121/62 99 Room Air 97.2 Constitutional: NAD Cardiovascular: other - pacemake Respiratory: CTA Airway Exam Mallampati Score: Class III MO: full ROM: full Teeth: broken Dentures: no upper, no lower Anesthesia Pre-op A/P Risk Assessment & Plan Assessment: asa 4 Plan: ETGA Status Change Before Surgery: No Pre-Antibiotics Drug: ancef 2 gram Given Within 1 Hr of Incision: Yes Time Given: 13:05 Ivon Mccullough M.D. Feb 10, 2018 13:34
--- NOTE | 2018-02-10 13:39 | Immediate Post-Op Evaluation ---
Immediate Post-Op Evalulation Immediate Post-Op Evalulation Procedure: repair umbliical hernia Date of Evaluation: Feb 10, 2018 Time of Evaluation: 14:31 IV Fluids: LR 500ml Blood Products: 0 Estimated Blood Loss: 20ml Urinary Output: 0 Blood Pressure Systolic: 144 Blood Pressure Diastolic: 77 Pulse Rate: 60 Respiratory Rate: 17 O2 Sat by Pulse Oximetry: 100 Temperature (Fahrenheit): 97 Pain Score (1-10): 0 Nausea: No Vomiting: No Complications none Patient Status: awake, patent, none Hydration Status: adequate Drug: ancef 2 grams Given Within 1 Hr of Incision: Yes Time Given: 13:05 Ivon Mccullough M.D. Feb 10, 2018 13:39
[2018-02-10] MEDS ORDERED: Dexamethasone 4mg/ml vial ONE (13:44)
[2018-02-10] MEDS ORDERED: Labetalol 5mg/ml 20ml vial IV PRN (13:45)
[2018-02-10] MEDS ORDERED: DiphenhydrAMINE 50mg/ml Inj IVP PRN (13:45)
[2018-02-10] MEDS ORDERED: Metoclopramide 10mg/2ml Inj IVP PRN (13:45)
[2018-02-10] MEDS ORDERED: Hydromorphone 0.5mg/0.5ml inj IVP PRN (13:45)
[2018-02-10] MEDS ORDERED: Glycopyrrolate 0.2mg/ml 1ml Vial ONE (14:10)
[2018-02-10] MEDS ORDERED: Neostigmine 1mg/ml 10ml Inj ONE (14:10)
--- NOTE | 2018-02-10 14:26 | Brief Operative Note ---
Immediate Post Operative Note Operative Note Pre-op Diagnosis: umbilical hernia Procedure: repair of chronically incarcerated umbilical hernia with omental resection Post-op Diagnosis: Umbilical hernia with chronic incarceration Post-op Diagnosis: same as pre-op Findings: consistent w/pre-op dx studies Surgeon: tereza Anesthesiologist: Anesthesia: general Specimen: yes - omentum and hernia sac Complications: none Condition: stable Fluids: see anesthesia record Estimated Blood Loss: minimal Drains: OR[place]O Implant(s) used?: No Tee Agustin MD Feb 10, 2018 14:26
[2018-02-10] MEDS: fentaNYL 100 mcg/2 mL IV PRN ×2 (15:22→15:32)
--- NOTE | 2018-02-10 16:00 | Operative Note - Dictated ---
DATE OF SURGERY: 02/10/2018 SURGEON: Tee Agustin M.D. ICE SCULPTOR SURGEON: None. ANESTHESIOLOGIST: Dr. Mccullough. TYPE OF ANESTHESIA: General endotracheal. PREOPERATIVE DIAGNOSIS: Chronically incarcerated umbilical hernia. POSTOPERATIVE DIAGNOSIS: Chronically incarcerated umbilical hernia with omentum. OPERATION PERFORMED: Repair of umbilical hernia with omentectomy. DESCRIPTION OF PROCEDURE: The patient was taken to the operating room and under general anesthesia with sequential compression device stockings in place and having received intravenous antibiotics, the patient was prepped and draped in usual fashion. The skin of the deep umbilical cleft was eroded from the pressure of the hernia. The hernia projected mainly to the right. A curvilinear infraumbilical incision was made extending it to the right as needed. Subcutaneous tissues were divided. The hernia sac measured approximately 6 x 5 cm and was filled with omentum. A circumferential dissection was performed to the hernia defect itself. The hernia defect was extended laterally to the right and then the sac mobilized off of the fascia. The sac had to be opened as the contents could not be reduced. The omentum in the sac was resected together with the sac itself serially dividing the omentum between clamps, ligating with #0 silk. The specimen was given for pathology. The ligated omentum was inspected and hemostasis was secured. The fascial edges could be brought together in transverse orientation without any tension whatsoever and I did not feel there was any indication for mesh. The repair was accomplished by taking wide bites of fascia with continuous #1 Prolene starting at both ends and inverting the knots. A very satisfactory tension-free repair was achieved. The undersurface of the umbilicus was tacked to the area of the repair with 3-0 Vicryl. The excoriated umbilical skin was lightly cauterized. Through a separate stab incision laterally, a 10-mm flat Sherif drain was placed and sutured to the skin with a 2-0 nylon skin suture. The incision was closed with interrupted 2-0 Vicryl deep dermal subcutaneous sutures and skin closed with mirna. The drain was indicated because of the significant space. Dry sterile dressings were applied. Final sponge and needle counts were correct. The wound had been irrigated with antibiotic solution. The patient tolerated the procedure well and left the operating room in good condition. Don Lizandro Agustin DR: Rubina JOB#: [id number] CC:
--- NOTE | 2018-02-10 16:32 | Geriatric Progress Note ---
Subjective Interval Events Patient seen in office, on February 05, 2018, for preoperative medical clearance, and now in PACU, post-op periumbilical hernia repair. Patient initially presented in the office, on December 25, 2017, with complaint of recurrent constipation and periumbilical discomfort, associated with a known hernia. On examination, she had evidence of an incarcerated hernia. She was referred to Dr. Agustin, who advised hernia repair. However, the patient deferred the procedure because of travel plans. On February 05, she reported feeling well, with only occasional discomfort in the periumbilical area, associated with episodes of constipation. However, otherwise she felt well. Her preoperative laboratories, CXR, and EKG, obtained on February 06, were unremarkable except for evidence of mild azotemia, which has be episodically noted in the past. The patient was felt to be optimized for her procedure, with her major risk factors associated with her obesity and borderline sleep apnea. Accordingly, the patient requires close monitoring in the perioperative period after administration of anesthetics, analgesics, and sedatives. In the PACU, the patient is awake and conversant, but with moderate c/o periumbilical pain, and a sense of congestion in her throat, which she has difficulty relieving because of pain with cough. Her VS are stable, and she is being administered hydromorphone and Zofran, per Dr. Mccullough, the anesthesiologist. PMH: 1. HTN. 2. Dyslipidemia. 3. Obesity. 4. Obstructive sleep apnea. 5. GERD. 6. Hx of atypical chest pain, s/p normal cardiac catheterization. 7. Hx of paroxysmal a fib, flutter, s/p pacer placement. 8. Hx of atypical right chest pain, suspected zoster. 9. Degenerative joint disease, notably bilateral knees. 10. 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 11. Hx panic attacks. 12. Hx of headaches, likely muscle tension. 13. Abdominal wall diastasis. 14. S/p tonsillectomy. 15. S/p hysteroscopy. 16. Hyperuricemia, possible gout. 17. B12 deficiency. 18. Vit D deficiency. Medications: 1. Allopurinol 30mg daily. 2. ASA 81mg daily. 3. Atenolol 25mg q12. 4. Vit D3 5000u daily. 5. Vit B12 1000mcg daily. 6. Omeprazole 20mg daily. 7. Simvastatin 5mg qhs. 8. Lexapro 5mg daily. 9. Tramadol 50mg q6 prn. Allergies: NKDA. SH: Born in [place], college education. 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 in 1971. Lives with son in apartment. No significant ETOH or tobacco use. FH: Mother dies at age 90 with heart disease and dementia. Father at age 88 with hear disease. Brother diet in 1970 from gunshot wound. Son with CHF, COPD, MALINDA, asthma, obesity, LE cellulitis, borderline diabetes. Hx of pancreatic, liver cancer in maternal uncle. Hx of breast cancer in paternal aunt with hx of substance abuse and alcohol. Constitutional: Reports: pain - in operative site. ENT: Reports: other - sensation of difficulty clearing throat, with coughing inhibited by abdominal pain. Respiratory: Denies: shortness of breath Cardiovascular: Denies: chest pain Genitourinary: Denies: dysuria Geriatric Geriatric Last 24 Hour Vital Signs Date Time Temp Pulse Resp B/P (MAP) Pulse Ox O2 Delivery O2 Flow Rate FiO2 02/10/18 15:40 62 15 127/72 98 Nasal Cannula 3.0 02/10/18 15:30 64 15 124/70 100 Nasal Cannula 3.0 02/10/18 15:22 97.5 02/10/18 15:20 62 16 121/66 100 Nasal Cannula 3.0 02/10/18 15:10 60 15 120/65 100 Nasal Cannula 3.0 02/10/18 15:00 58 18 144/61 100 Simple Mask 6 02/10/18 14:50 59 15 133/62 100 Simple Mask 6 02/10/18 14:41 206.6 60 17 100 02/10/18 14:40 60 17 144/66 100 Simple Mask 6 02/10/18 14:35 97.1 60 17 133/64 100 Simple Mask 6 97.1 02/10/18 14:31 15 144/77 100 Simple Mask 6 02/10/18 11:22 97.2 67 18 121/62 99 Room Air 97.2 Current Medications Medications (Trade) Dose Ordered Sig/Ganesh Route PRN Reason Start Time Stop Time Status Last Admin Dose Admin Acetaminophen (Tylenol) 650 mg Q4H PRN ORAL Mild Pain (Pain Scale 1-3) 02/10/18 13:45 02/10/18 18:00 Acetaminophen (Tylenol) 650 mg Q4H PRN ORAL FEVER 02/10/18 14:30 03/12/18 14:29 UNV Acetaminophen (Tylenol) 650 mg Q6H PRN ORAL Mild Pain (Pain Scale 1-3) 02/10/18 14:30 03/12/18 14:29 UNV Acetaminophen/ Hydrocodone Bitart ([place] 10/325) 1 tab Q4H PRN ORAL Severe Pain (Pain Scale 7-10) 02/10/18 14:30 02/17/18 14:29 UNV Dextrose/ Electrolytes 1,000 ml @ 125 mls/hr Q8H IV 02/10/18 16:30 03/12/18 16:29 Diphenhydramine HCl (Benadryl) 25 mg Q15M PRN IVP Itching 02/10/18 13:45 02/10/18 18:00 Fentanyl Citrate (Sublimaze 100 mcg/2 mL) 25 mcg Q10M PRN IV Moderate Pain (Pain Scale 4-6) 02/10/18 13:45 02/10/18 18:00 02/10/18 15:22 Hydralazine HCl (Apresoline) 5 mg Q30M PRN IV SBP>160 OR___/DBP>90 OR___ 02/10/18 13:45 02/10/18 18:00 Hydromorphone HCl (Dilaudid) 0.5 mg Q15M PRN IVP Severe Pain (Pain Scale 7-10) 02/10/18 13:45 02/10/18 18:00 Labetalol HCl (Normodyne) 5 mg Q10M PRN IV SBP>160 or____/ DBP>90 or 02/10/18 13:45 02/10/18 18:00 Lactated Ringer's 1,000 ml @ 10 mls/hr Q24H IVLG 02/10/18 13:34 02/10/18 18:00 Metoclopramide HCl (Reglan) 10 mg Q1H PRN IVP Nausea & Vomiting 02/10/18 13:45 02/10/18 18:00 Morphine Sulfate (Morphine Sulfate) 4 mg Q4H PRN IVP pain score 7-10 02/10/18 14:30 02/17/18 14:29 UNV Ondansetron HCl (Zofran) 4 mg Q6H PRN IVP Nausea & Vomiting 02/10/18 14:30 03/12/18 14:29 UNV Height (Feet): 5 Height (Inches): 7.00 Weight (Pounds): 231 TRENT BURTON Feb 10, 2018 16:32
--- NOTE | 2018-02-10 16:58 | Cardiology Progress Note ---
Assessment/Plan Assessment/Plan lef sided abd pain post hernia repair htn paf s/p ppi ekg post op routine care dvt ppx sq heparin pneumatic stocking will check ekg but suspect abd pain likely post op related [id number] Objective Last 24 Hour Vital Signs Date Time Temp Pulse Resp B/P (MAP) Pulse Ox O2 Delivery O2 Flow Rate FiO2 02/10/18 16:00 97.3 59 17 128/68 100 Nasal Cannula 3.0 97.3 02/10/18 15:50 59 19 125/68 100 Nasal Cannula 3.0 02/10/18 15:50 59 15 131/64 99 Nasal Cannula 3.0 02/10/18 15:40 62 15 127/72 98 Nasal Cannula 3.0 02/10/18 15:30 64 15 124/70 100 Nasal Cannula 3.0 02/10/18 15:22 97.5 02/10/18 15:20 62 16 121/66 100 Nasal Cannula 3.0 02/10/18 15:10 60 15 120/65 100 Nasal Cannula 3.0 02/10/18 15:00 58 18 144/61 100 Simple Mask 6 02/10/18 14:50 59 15 133/62 100 Simple Mask 6 02/10/18 14:41 206.6 60 17 100 02/10/18 14:40 60 17 144/66 100 Simple Mask 6 02/10/18 14:35 97.1 60 17 133/64 100 Simple Mask 6 97.1 02/10/18 14:31 15 144/77 100 Simple Mask 6 02/10/18 11:22 97.2 67 18 121/62 99 Room Air 97.2 Jose F Barrow MD Feb 10, 2018 16:58
[2018-02-10] MEDS: Morphine Sulfate 4mg/ml Inj IVP PRN (18:41)
[2018-02-10] MEDS: D5 1/2NS w/KCl 20mEq 1,000 ML IV SCH (20:15)
--- NOTE | 2018-02-10 21:07 | General Progress Note ---
Assessment/Plan Assessment/Plan GI Consult Dictated Thank you Ben Barry MD Subjective Allergies: Coded Allergies: NO KNOWN DRUG ALLERGIES (Unverified Allergy, Unknown, 02/10/18) Objective Last 24 Hour Vital Signs Date Time Temp Pulse Resp B/P (MAP) Pulse Ox O2 Delivery O2 Flow Rate FiO2 02/10/18 20:04 97.3 02/10/18 18:41 97.3 02/10/18 16:00 97.3 59 17 128/68 100 Nasal Cannula 3.0 97.3 02/10/18 15:50 59 19 125/68 100 Nasal Cannula 3.0 02/10/18 15:50 59 15 131/64 99 Nasal Cannula 3.0 02/10/18 15:40 62 15 127/72 98 Nasal Cannula 3.0 02/10/18 15:30 64 15 124/70 100 Nasal Cannula 3.0 02/10/18 15:22 97.5 02/10/18 15:20 62 16 121/66 100 Nasal Cannula 3.0 02/10/18 15:10 60 15 120/65 100 Nasal Cannula 3.0 02/10/18 15:00 58 18 144/61 100 Simple Mask 6 02/10/18 14:50 59 15 133/62 100 Simple Mask 6 02/10/18 14:41 206.6 60 17 100 02/10/18 14:40 60 17 144/66 100 Simple Mask 6 02/10/18 14:35 97.1 60 17 133/64 100 Simple Mask 6 97.1 02/10/18 14:31 15 144/77 100 Simple Mask 6 02/10/18 11:22 97.2 67 18 121/62 99 Room Air 97.2 Height (Feet): 5 Height (Inches): 7.00 Weight (Pounds): 231 Patricia Barry MD Feb 10, 2018 21:07
[2018-02-10] MEDS: Docusate 250mg cap ORAL SCH (21:15)
--- NOTE | 2018-02-10 22:45 | Consultation ---
DATE OF CONSULTATION: 02/10/2018 CARDIOLOGY CONSULTATION CONSULTING PHYSICIAN: Jose F Barrow M.D. REFERRING PHYSICIAN: Cullen Willett M.D. REASON FOR REFERRAL: Left upper abdominal pain. HISTORY OF PRESENT ILLNESS: This is an elderly female, who is known to me from prior evaluation and hospitalization. The patient apparently had a ventral hernia repair that was performed today. She is being seen postoperatively. She is currently nauseated. She has some pain in her left upper abdominal area and very uncomfortable because of the pain. She actually does not have any shortness of breath, does not have any chest pains, but just her left upper abdominal pain. She is just extremely uncomfortable with the nausea. PAST MEDICAL HISTORY: She does have a history of hypertension, hyperlipidemia, history of sleep apnea, osteoarthritis, and gastroesophageal reflux disease. She does have systemic hypertension, atrial fibrillation, cardiac pacing, coronary artery calcification, and obesity. Her last echocardiogram in the office was performed back in September of 2017, which showed ejection fraction of 60 to 65% with moderate left ventricular hypertrophy, mild mitral regurgitation, moderate tricuspid regurgitation, normal pulmonary artery systolic pressure and she has had prior ischemia evaluation over a year ago that was negative for ischemia and ejection fraction of 68%. ALLERGIES: She has no known drug allergies. SOCIAL HISTORY: She used to smoke 2-pack-year smoking, she quit 40 years ago. No alcohol. No drugs. She lives at home. FAMILY HISTORY: Father with three-vessel coronary bypass grafting at age 84. Brother was murdered. Mother had an [place] in her 80s. REVIEW OF SYSTEMS: GASTROINTESTINAL: She has extreme amounts of nausea and has mentioned some abdominal pain. No vomiting. No bowel movement yet today. GENITOURINARY: No discomfort on urination. PULMONARY: No coughing or wheezing. CONSTITUTIONAL: No fevers or chills. PHYSICAL EXAMINATION: GENERAL: Shows to be morbidly obese middle-aged female, in no respiratory distress, although she is quite uncomfortable from the pain of her procedure. LUNGS: Appear to be clear to auscultation and percussion. CARDIAC: Regular rate and rhythm. Not tachycardic. Not bradycardic. No heaves or thrills. ABDOMEN: She has a surgical dressing in the lower abdominal wall area that is horizontal from the right all the way to the left. Surgical dressing appears to be clean and dry, and she has pneumatic compression stockings in place at this time. NEUROLOGICAL: She is awake, alert, responsive, and in no apparent respiratory distress. LABORATORY AND DIAGNOSTIC DATA: Her laboratory values were done preoperatively here with a white count of 4.1, hemoglobin 14, and platelet count of 114. Sodium is 141, potassium 3.8, chloride 103, bicarbonate 30, BUN 25, creatinine 1.4, and glucose of 130. A1c of 6.4. TSH of 4.36. She did have a chest x-ray performed on 02/06/2018 as well that showed no acute findings. Just mild cardiac enlargement. Her EKG that was done preoperatively by Dr. Willett's office was also normal sinus rhythm, no ST or T-wave abnormalities. ASSESSMENT AND PLAN: 1. Abdominal pain. 2. Hernia, status post repair. 3. Hypertension. 4. Hyperlipidemia. 5. Morbid obesity. 6. Paroxysmal episodes of atrial fibrillation. Dr. Willett, this patient was seen in cardiac consultation. She will have an electrocardiogram in light of her pain, although I suspect the pain postoperatively. Her usual medications will all be continued including atenolol, and simvastatin. Aspirin is on hold until okay by Dr. Agustin. In the meantime, we will follow the patient along with you. Jose F Barrow M.D. DR: CAMILO JOB#: [id number] CC:
[2018-02-11] VITALS: BP 130/65
[2018-02-11] MEDS: D5 1/2NS w/KCl 20mEq 1,000 ML IV SCH ×4 (00:36→16:12)
--- NOTE | 2018-02-11 02:45 | Consultation ---
DATE OF CONSULTATION: 02/10/2018 CONSULTING PHYSICIAN: Patricia Barry M.D. REFERRING PHYSICIAN: Cullen Willett M.D. CHIEF COMPLAINT: I was asked to see this patient by Dr. Cullen Willett for postoperative abdominal pain. HISTORY OF PRESENT ILLNESS: The patient is a pleasant 67-year-old woman, who was seen about a year ago by me. At that time, she complained of umbilical abdominal pain and evaluation showed umbilical hernia likely causing her pain. She was advised to have a surgery for which she was admitted a few days ago to complete and this was done by Dr. Tee Agustin. She is now complaining of some left upper quadrant abdominal pain, which has started since the surgery, but is not progressive. The pain appears to have started all after the umbilical hernia repair. There is no vomiting. The patient has not had a colonoscopy and was advised today to have one later this year once she recovers from current surgery. PAST MEDICAL HISTORY: Remarkable for history of sinus node dysfunction, paroxysmal atrial fibrillation, atrial flutter, hypertension, hyperlipidemia, obstructive sleep apnea, degenerative joint disease, gastroesophageal reflux disease, umbilical hernia, history of panic attacks, headaches. ALLERGIES: None. MEDICATIONS: See the chart list for details. FAMILY HISTORY: Positive for coronary artery disease. SOCIAL HISTORY: The patient does not smoke or drink alcohol. REVIEW OF SYSTEMS: Otherwise negative. PHYSICAL EXAMINATION: GENERAL: This is a pleasant woman, seen in her room. HEENT: Normocephalic and atraumatic. Sclerae anicteric. Oropharynx is clear. NECK: Supple. CHEST: Clear to auscultation. CARDIOVASCULAR: Regular rate. ABDOMEN: Soft, obese. Good bowel sounds. There is a dry sterile abdominal dressing with a Tripp-Oliveira tube. EXTREMITIES: Revealed no edema. LABORATORY DATA: Noted. ASSESSMENT: This patient presents with left upper quadrant abdominal pain since her umbilical surgery this morning. The patient does not appear to have a significant abdominal examination and I suspect her abdominal pain is due to surgical manipulation and should resolve uneventfully. The patient can be given a diet as tolerated. Should she complain of pain further, then she can be discharged for outpatient followup. Bowel regimen should be given to help with elimination while recovering from her surgery. RECOMMENDATIONS: Per discussion and per orders written in the chart. Thank you for asking me to participate in the care of this patient. Patricia Barry M.D. DR: Denny JOB#: [id number] CC: FRANCISCA
[2018-02-11] MEDS: Morphine Sulfate 4mg/ml Inj IVP PRN (03:55)
[2018-02-11 04:00] VITALS: BP 129/70
[2018-02-11 08:00] VITALS: BP 140/74
--- NOTE | 2018-02-11 08:01 | General Progress Note ---
Progress Note Progress Note AVSS Having mid-abd pain with radiation to LUQ. c/o nausea - only able to tolerate limited clear liquids Abdomen obese, soft, non-distended. Incision clean, no ecchymosis or seroma. [place] drain - scant serous output Voiding well - up to commode Imp. Ileus s/p resection of incarcerated omentum with repair of umbilical hernia (no mesh required) Plan: continue IV fluids, clear liquids as tolerated, maintain [place] drain, ambulate BID with assistance hopefully can be advanced to regular diet tomorrow labs in AM Tee Agustin MD Feb 11, 2018 08:01
[2018-02-11] MEDS: Allopurinol 100mg Tab ORAL SCH (09:03)
[2018-02-11] MEDS: Docusate 250mg cap ORAL SCH ×2 (09:03→18:13)
[2018-02-11] MEDS: Atenolol 25mg tab ORAL SCH (09:03)
--- NOTE | 2018-02-11 09:40 | 48 Hour Post Anesthesia Eval ---
Post Anesthesia Evaluation Procedure: repair umbliical hernia Date of Evaluation: Feb 11, 2018 Time of Evaluation: 09:39 Blood Pressure Systolic: 142 0: 76 Pulse Rate: 68 Respiratory Rate: 20 Temperature (Fahrenheit): 97.6 O2 Sat by Pulse Oximetry: 98 Airway: patent Nausea: No Vomiting: No Pain Intensity: 3 Hydration Status: adequate Cardiopulmonary Status: stable Mental Status/LOC: patient returned to baseline Follow-up Care/Observations: n/a Post-Anesthesia Complications: none Follow-up care needed: N/A Hang Price MD Feb 11, 2018 09:40
[2018-02-11 12:00] VITALS: BP 137/77
[2018-02-11] MEDS ORDERED: LR 1000ml ONE (12:45)
[2018-02-11] MEDS ORDERED: Sterile Water Irrig 1000ml IRRIG ONE (12:45)
[2018-02-11] MEDS ORDERED: NS Irrig 1000ml ONE (12:45)
--- NOTE | 2018-02-11 15:05 | Geriatric Progress Note ---
Assessment/Plan Problems: (1) Abdominal pain (2) Postoperative ileus (3) GERD (gastroesophageal reflux disease) (4) Obesity (5) Obstructive sleep apnea (6) HTN (hypertension) (7) Dyslipidemia (8) Atrial fibrillation (9) Gout (10) Nausea Assessment/Plan Continue analgesia, antiemetics, pending resolution of ileus. Mobilize as tolerated. Add pantoprazole IV for possible GERD sxs. Labs in am. Discussed with: patient, hospital staff Subjective Interval Events Patient converted to inpatient admission because of persistent pain and nausea, attributable to postop ileus. Still requiring IV analgesia and antiemetics. MS now back to baseline. Patient denies discomfort otherwise. Able to ambulate with staff. No b.m. Voiding without issue. Reviewed meds with patient, Allopurinol decreased to 100mg daily by Dr. Mojica. Not taking simvastatin any more. On questioning feel discomfort under L breast may represent reflux sxs for which she usually takes omeprazole. Respiratory: Denies: shortness of breath Cardiovascular: Denies: chest pain, palpitations Gastrointestinal/Abdominal: Reports: abdominal pain - across upper abdomen, especially to R, also discomfort under L breast. Geriatric Geriatric Last 24 Hour Vital Signs Date Time Temp Pulse Resp B/P (MAP) Pulse Ox O2 Delivery O2 Flow Rate FiO2 02/11/18 12:00 97.8 63 20 137/77 96 Room Air 97.8 02/11/18 09:40 207.7 68 20 98 02/11/18 09:03 66 140/74 02/11/18 08:00 97.3 66 18 140/74 100 Room Air 97.3 02/11/18 04:00 97.7 61 18 129/70 98 Room Air 97.7 02/11/18 00:00 97.8 61 16 130/65 98 Nasal Cannula 2.0 97.8 02/10/18 20:04 97.3 02/10/18 20:00 98.2 62 16 134/69 100 Nasal Cannula 2.0 98.2 02/10/18 18:41 97.3 02/10/18 16:35 97.5 15 139/77 98 Nasal Cannula 2 97.5 02/10/18 16:00 97.3 59 17 128/68 100 Nasal Cannula 3.0 97.3 02/10/18 15:50 59 19 125/68 100 Nasal Cannula 3.0 6/12/18 15:50 59 15 131/64 99 Nasal Cannula 3.0 02/10/18 15:40 17 144/79 100 Simple Mask 5 02/10/18 15:40 62 15 127/72 98 Nasal Cannula 3.0 02/10/18 15:30 64 15 124/70 100 Nasal Cannula 3.0 02/10/18 15:22 97.5 02/10/18 15:20 62 16 121/66 100 Nasal Cannula 3.0 02/10/18 15:20 15 144/82 100 Simple Mask 6 02/10/18 15:10 60 15 120/65 100 Nasal Cannula 3.0 02/10/18 15:00 58 18 144/61 100 Simple Mask 6 Intake and Output 02/10/18 02/11/18 19:00 07:00 Intake Total 300 ml 735 ml Output Total 5 ml 0 ml Balance 295 ml 735 ml Intake Oral 610 ml IV Total 300 ml 125 ml Output Drainage Total 5 ml 0 ml # Voids 1 4 # Bowel Movements 1 Current Medications Medications (Trade) Dose Ordered Sig/Ganesh Route PRN Reason Start Time Stop Time Status Last Admin Dose Admin Acetaminophen (Tylenol) 650 mg Q4H PRN ORAL T>100.5 02/10/18 17:00 03/12/18 16:59 Acetaminophen (Tylenol) 650 mg Q6H PRN ORAL Mild Pain (Pain Scale 1-3) 02/10/18 17:00 03/12/18 16:59 Acetaminophen/ Hydrocodone Bitart ([place] 10/325) 1 tab Q4H PRN ORAL Moderate Pain (Pain Scale 4-6) 02/10/18 14:30 02/17/18 14:29 Allopurinol (Zyloprim) 100 mg DAILY ORAL 02/11/18 09:00 03/13/18 08:59 02/11/18 09:03 Atenolol (Tenormin) 25 mg DAILY ORAL 02/11/18 09:00 03/13/18 08:59 02/11/18 09:03 Colchicine (Colchicine) 0.6 mg BIDPRN PRN ORAL Gout flare 02/10/18 17:00 03/12/18 16:59 Dextrose/ Electrolytes 1,000 ml @ 100 mls/hr Q10H IV 02/11/18 16:30 03/13/18 16:29 02/11/18 09:07 Docusate Sodium (Colace) 250 mg BID ORAL 02/10/18 21:15 03/12/18 21:14 02/11/18 09:03 Morphine Sulfate (Morphine Sulfate) 4 mg Q4H PRN IVP Severe Pain (Pain Scale 7-10) 02/10/18 17:00 02/17/18 16:59 02/11/18 03:55 Ondansetron HCl (Zofran) 4 mg Q6H PRN IVP Nausea & Vomiting 02/10/18 14:30 03/12/18 14:29 02/11/18 11:52 Height (Feet): 5 Height (Inches): 7.00 Weight (Pounds): 213 General Appearance: alert, non-toxic Head: normocephalic, atraumatic Eyes: bilateral anicteric ENT: normal voice Neck: full range of motion, no mass Respiratory: lungs clear, decreased breath sounds Cardiovascular: regular rate, rhythm Gastrointestinal: soft, no guarding, distended Musculoskeletal: no calf tenderness Edema: no edema noted Generalized Neurologic: no new focality TRENT BURTON Feb 11, 2018 15:05
[2018-02-11 16:00] VITALS: BP 131/61
[2018-02-11] MEDS: HYDROcodone/Acetamin 10/325 tab ORAL PRN (16:12)
[2018-02-11] MEDS: Pantoprazole Inj IVP SCH (16:12)
--- NOTE | 2018-02-11 16:14 | Cardiology Progress Note ---
Assessment/Plan Assessment/Plan left sided abd pain post hernia repair htn paf s/p ppi ekg sinus and apaced no st t wave abn on both ekg post op routine care dvt ppx sq heparin pneumatic stocking seems better than yest but still has pain encouraged to ambulate Subjective Cardiovascular: Reports: lightheadedness - some on standing ; Denies: chest pain Respiratory: Denies: shortness of breath Gastrointestinal/Abdominal: Reports: abdominal pain Genitourinary: Denies: burning Objective Last 24 Hour Vital Signs Date Time Temp Pulse Resp B/P (MAP) Pulse Ox O2 Delivery O2 Flow Rate FiO2 02/11/18 12:00 97.8 63 20 137/77 96 Room Air 97.8 02/11/18 09:40 207.7 68 20 98 02/11/18 09:03 66 140/74 02/11/18 08:00 97.3 66 18 140/74 100 Room Air 97.3 02/11/18 04:00 97.7 61 18 129/70 98 Room Air 97.7 02/11/18 00:00 97.8 61 16 130/65 98 Nasal Cannula 2.0 97.8 02/10/18 20:04 97.3 02/10/18 20:00 98.2 62 16 134/69 100 Nasal Cannula 2.0 98.2 02/10/18 18:41 97.3 02/10/18 16:35 97.5 15 139/77 98 Nasal Cannula 2 97.5 General Appearance: no apparent distress, alert Neck: supple Cardiovascular: normal rate, regular rhythm Respiratory/Chest: lungs clear Abdomen: soft, tender Extremities: no swelling Intake and Output 02/10/18 02/11/18 19:00 07:00 Intake Total 300 ml 735 ml Output Total 5 ml 0 ml Balance 295 ml 735 ml Intake Oral 610 ml IV Total 300 ml 125 ml Output Drainage Total 5 ml 0 ml # Voids 1 4 # Bowel Movements 1 Jose F Barrow MD Feb 11, 2018 16:14
--- NOTE | 2018-02-11 17:02 | General Progress Note ---
Assessment/Plan Assessment/Plan Assessment - symptomatic umbilical hernia - s/p repair - post op wound pain Recommendations - Post op care - OOB - diet per surgery - outpatient colonoscopy later this year Subjective Allergies: Coded Allergies: NO KNOWN DRUG ALLERGIES (Unverified Allergy, Unknown, 02/10/18) Subjective Above noted no significant events overnight some wound pain tolerating po Objective Last 24 Hour Vital Signs Date Time Temp Pulse Resp B/P (MAP) Pulse Ox O2 Delivery O2 Flow Rate FiO2 02/11/18 16:12 97.8 02/11/18 12:00 97.8 63 20 137/77 96 Room Air 97.8 02/11/18 09:40 207.7 68 20 98 02/11/18 09:03 66 140/74 02/11/18 08:00 97.3 66 18 140/74 100 Room Air 97.3 02/11/18 04:00 97.7 61 18 129/70 98 Room Air 97.7 02/11/18 00:00 97.8 61 16 130/65 98 Nasal Cannula 2.0 97.8 02/10/18 20:04 97.3 02/10/18 20:00 98.2 62 16 134/69 100 Nasal Cannula 2.0 98.2 02/10/18 18:41 97.3 Intake and Output 02/10/18 02/11/18 19:00 07:00 Intake Total 300 ml 735 ml Output Total 5 ml 0 ml Balance 295 ml 735 ml Intake Oral 610 ml IV Total 300 ml 125 ml Output Drainage Total 5 ml 0 ml # Voids 1 4 # Bowel Movements 1 Height (Feet): 5 Height (Inches): 7.00 Weight (Pounds): 213 Objective WDWN obese AA woman NCAT supple CTA RRR soft obese, (+) wound no edema Patricia Barry MD Feb 11, 2018 17:02
[2018-02-11 20:00] VITALS: BP 127/65
[2018-02-12] VITALS: BP 141/69
[2018-02-12] MEDS: HYDROcodone/Acetamin 10/325 tab ORAL PRN ×3 (00:22→18:28)
[2018-02-12] MEDS: D5 1/2NS w/KCl 20mEq 1,000 ML IV SCH ×2 (03:34→15:00)
[2018-02-12 04:00] VITALS: BP 139/73
[2018-02-12 05:22] LABS: BASOPHILS % (AUTO) 1.2 % (0.0-2.0); EOSINOPHILS % (AUTO) 1.6 % (0.0-3.0); HEMATOCRIT 37.5 % (37.0-47.0); LYMPHOCYTES % (AUTO) 40.1 % (20.0-45.0); MEAN CORPUSCULAR VOLUME 101 FL (80-99); MONOCYTES % (AUTO) 8.7 % (1.0-10.0); NEUTROPHILS % (AUTO) 48.4 % (45.0-75.0); PLATELET COUNT 148 K/UL (150-450); RED BLOOD COUNT 3.72 M/UL (4.20-5.40); RED CELL DISTRIBUTION WIDTH 12.4 % (11.6-14.8); WHITE BLOOD COUNT 6.2 K/UL (4.8-10.8)
[2018-02-12 05:28] LABS: ANION GAP 6 mmol/L (5-15); BLOOD UREA NITROGEN 14 mg/dL (7-18); CALCIUM 8.7 MG/DL (8.5-10.1); CARBON DIOXIDE 29 MMOL/L (21-32); CHLORIDE 103 MMOL/L (98-107); CREATININE 1.4 MG/DL (0.55-1.30); POTASSIUM 4.1 MMOL/L (3.5-5.1); SODIUM 138 MMOL/L (136-145)
[2018-02-12 08:00] VITALS: BP 128/61
[2018-02-12] MEDS: Docusate 250mg cap ORAL SCH ×2 (08:48→18:27)
[2018-02-12] MEDS: Atenolol 25mg tab ORAL SCH (08:49)
[2018-02-12] MEDS: Allopurinol 100mg Tab ORAL SCH (08:49)
[2018-02-12] MEDS: Pantoprazole Inj IVP SCH (08:49)
[2018-02-12 12:00] VITALS: BP 125/72
--- NOTE | 2018-02-12 13:38 | Geriatric Progress Note ---
Assessment/Plan Problems: (1) Abdominal pain (2) Postoperative ileus (3) GERD (gastroesophageal reflux disease) (4) Obesity (5) Obstructive sleep apnea (6) HTN (hypertension) (7) Dyslipidemia (8) Atrial fibrillation (9) Gout (10) Nausea Assessment/Plan Resolving ileus, no evidence infection or other intervening process. Convert pantoprazole to p.o. Continue to mobilize. Diet per surgery. Discussed with: patient, hospital staff Subjective Interval Events Still notes some irritation in throat, difficulty clearing secretion due to pain with cough, even using pillow. Nausea diminished. Dr. Becerra continued full clear diet. Passing some gas. Now utilizing [place] for analgesia. Constitutional: Denies: chills, sweats, fever Respiratory: Denies: shortness of breath Cardiovascular: Denies: chest pain, palpitations Gastrointestinal/Abdominal: Reports: abdominal pain - diminshed Genitourinary: Denies: dysuria Geriatric Geriatric Last 24 Hour Vital Signs Date Time Temp Pulse Resp B/P (MAP) Pulse Ox O2 Delivery O2 Flow Rate FiO2 02/12/18 12:00 98.1 68 20 125/72 100 Room Air 98.1 02/12/18 09:48 98.0 02/12/18 08:49 61 128/61 02/12/18 08:49 98.0 02/12/18 08:00 98.0 61 20 128/61 100 Room Air 98.0 02/12/18 04:00 97.6 62 18 139/73 100 Room Air 97.6 02/12/18 00:00 98.1 61 18 141/69 99 Room Air 98.1 02/11/18 20:00 98.0 61 19 127/65 99 Room Air 98.0 02/11/18 16:12 97.8 02/11/18 16:00 97.3 61 20 131/61 100 97.3 02/11/18 16:00 97.3 61 20 131/61 100 Room Air 97.3 Intake and Output 02/11/18 02/12/18 19:00 07:00 Intake Total 1185 ml 1400 ml Output Total 665 ml 910 ml Balance 520 ml 490 ml Intake Oral 360 ml 300 ml IV Total 825 ml 1100 ml Output Urine Total 650 ml 900 ml Drainage Total 15 ml 10 ml Laboratory Tests Test 02/12/18 04:40 White Blood Count 6.2 K/UL (4.8-10.8) Red Blood Count 3.72 M/UL (4.20-5.40) L Hemoglobin 12.0 G/DL (12.0-16.0) Hematocrit 37.5 % (37.0-47.0) Mean Corpuscular Volume 101 FL (80-99) H Mean Corpuscular Hemoglobin 32.4 PG (27.0-31.0) H Mean Corpuscular Hemoglobin Concent 32.1 G/DL (32.0-36.0) Red Cell Distribution Width 12.4 % (11.6-14.8) Platelet Count 148 K/UL (150-450) L Mean Platelet Volume 7.6 FL (6.5-10.1) Neutrophils (%) (Auto) 48.4 % (45.0-75.0) Lymphocytes (%) (Auto) 40.1 % (20.0-45.0) Monocytes (%) (Auto) 8.7 % (1.0-10.0) Eosinophils (%) (Auto) 1.6 % (0.0-3.0) Basophils (%) (Auto) 1.2 % (0.0-2.0) Sodium Level 138 MMOL/L (136-145) Potassium Level 4.1 MMOL/L (3.5-5.1) Chloride Level 103 MMOL/L (98-107) Carbon Dioxide Level 29 MMOL/L (21-32) Anion Gap 6 mmol/L (5-15) Blood Urea Nitrogen 14 mg/dL (7-18) Creatinine 1.4 MG/DL (0.55-1.30) H Estimat Glomerular Filtration Rate 45.1 mL/min (>60) Glucose Level 151 MG/DL (74-106) H Calcium Level 8.7 MG/DL (8.5-10.1) Current Medications Medications (Trade) Dose Ordered Sig/Ganesh Route PRN Reason Start Time Stop Time Status Last Admin Dose Admin Acetaminophen (Tylenol) 650 mg Q4H PRN ORAL T>100.5 02/10/18 17:00 03/12/18 16:59 Acetaminophen (Tylenol) 650 mg Q6H PRN ORAL Mild Pain (Pain Scale 1-3) 02/10/18 17:00 03/12/18 16:59 Acetaminophen/ Hydrocodone Bitart ([place] 10/325) 1 tab Q4H PRN ORAL Moderate Pain (Pain Scale 4-6) 02/10/18 14:30 02/17/18 14:29 02/12/18 08:49 Allopurinol (Zyloprim) 100 mg DAILY ORAL 02/11/18 09:00 03/13/18 08:59 02/12/18 08:49 Atenolol (Tenormin) 25 mg DAILY ORAL 02/11/18 09:00 03/13/18 08:59 02/12/18 08:49 Colchicine (Colchicine) 0.6 mg BIDPRN PRN ORAL Gout flare 02/10/18 17:00 03/12/18 16:59 Dextrose/ Electrolytes 1,000 ml @ 100 mls/hr Q10H IV 02/11/18 16:30 03/13/18 16:29 02/12/18 03:34 Docusate Sodium (Colace) 250 mg BID ORAL 02/10/18 21:15 03/12/18 21:14 02/12/18 08:48 Morphine Sulfate (Morphine Sulfate) 4 mg Q4H PRN IVP Severe Pain (Pain Scale 7-10) 02/10/18 17:00 02/17/18 16:59 02/11/18 03:55 Ondansetron HCl (Zofran) 4 mg Q6H PRN IVP Nausea & Vomiting 02/10/18 14:30 03/12/18 14:29 02/11/18 11:52 Pantoprazole (Protonix) 40 mg DAILY IVP 02/11/18 15:30 03/13/18 15:29 02/12/18 08:49 Height (Feet): 5 Height (Inches): 7.00 Weight (Pounds): 213 General Appearance: alert, non-toxic Head: normocephalic, atraumatic Eyes: bilateral anicteric ENT: normal voice Neck: full range of motion, no mass Respiratory: lungs clear, decreased breath sounds Cardiovascular: regular rate, rhythm Gastrointestinal: soft, tenderness - diminishing, other - stapled wound, [place] site without inflammation, drainage. Musculoskeletal: no calf tenderness Edema: no edema noted Generalized TRENT BURTON Feb 12, 2018 13:38
--- NOTE | 2018-02-12 15:08 | General Progress Note ---
Progress Note Progress Note Surgery: Covering for Dr. Agustin. No acute events. States she feels well. no n/v/f/ c. passing flatus. no BM yet. wound clean, dry, intact with mirna. drain minimal output afebrile, HD stable. Hungry -start clear liquids. -Ambulate and out of bed -Incentive spirometry -keep drain in for now Awaiting return of full bowel function thank you Dwight Becerra Feb 12, 2018 15:08
--- NOTE | 2018-02-12 15:12 | Cardiology Report ---
APPROVED REPORT EKG Measurement Heart [id number] Atrial Pacemaker Abnormal ECG
[2018-02-12] MEDS ORDERED: Chloraseptic Spray 20mL Bottle ORAL PRN (15:15)
[2018-02-12 16:00] VITALS: BP 115/64
[2018-02-12] MEDS ORDERED: 1/2 NS 1000ml IV ONE (16:30)
[2018-02-12] MEDS ORDERED: D5 1/2NS 1000ml IV ONE (16:30)
[2018-02-12] MEDS ORDERED: NS Irrig 1000ml ONE (16:30)
--- NOTE | 2018-02-12 17:08 | Diagnostic Imaging Report ---
Indication: Shortness of breath Technique: One view of the chest Comparison: 02/06/2018 Findings: Lungs and pleural spaces are clear. There is a left chest pacemaker. Normal heart size. No significant change Impression: No acute process
--- NOTE | 2018-02-12 18:58 | Cardiology Progress Note ---
Assessment/Plan Assessment/Plan left sided abd pain post hernia repair htn paf s/p ppi post op routine care dvt ppx sq heparin pneumatic stocking seems better than yest encouraged to ambulate Subjective Cardiovascular: Denies: chest pain, lightheadedness, palpitations Respiratory: Denies: shortness of breath Gastrointestinal/Abdominal: Reports: abdominal pain Genitourinary: Denies: burning Objective Last 24 Hour Vital Signs Date Time Temp Pulse Resp B/P (MAP) Pulse Ox O2 Delivery O2 Flow Rate FiO2 02/12/18 18:28 98.2 02/12/18 16:00 98.2 60 20 115/64 100 Room Air 98.2 02/12/18 12:00 98.1 68 20 125/72 100 Room Air 98.1 02/12/18 09:48 98.0 02/12/18 08:49 61 128/61 02/12/18 08:49 98.0 02/12/18 08:00 98.0 61 20 128/61 100 Room Air 98.0 02/12/18 04:00 97.6 62 18 139/73 100 Room Air 97.6 02/12/18 00:00 98.1 61 18 141/69 99 Room Air 98.1 02/11/18 20:00 98.0 61 19 127/65 99 Room Air 98.0 General Appearance: no apparent distress Cardiovascular: normal rate, regular rhythm Respiratory/Chest: lungs clear Abdomen: normal bowel sounds, non tender, soft Extremities: no swelling Intake and Output 02/11/18 02/12/18 19:00 07:00 Intake Total 1185 ml 1400 ml Output Total 665 ml 910 ml Balance 520 ml 490 ml Intake Oral 360 ml 300 ml IV Total 825 ml 1100 ml Output Urine Total 650 ml 900 ml Drainage Total 15 ml 10 ml Laboratory Tests Test 02/12/18 04:40 White Blood Count 6.2 K/UL (4.8-10.8) Red Blood Count 3.72 M/UL (4.20-5.40) L Hemoglobin 12.0 G/DL (12.0-16.0) Hematocrit 37.5 % (37.0-47.0) Mean Corpuscular Volume 101 FL (80-99) H Mean Corpuscular Hemoglobin 32.4 PG (27.0-31.0) H Mean Corpuscular Hemoglobin Concent 32.1 G/DL (32.0-36.0) Red Cell Distribution Width 12.4 % (11.6-14.8) Platelet Count 148 K/UL (150-450) L Mean Platelet Volume 7.6 FL (6.5-10.1) Neutrophils (%) (Auto) 48.4 % (45.0-75.0) Lymphocytes (%) (Auto) 40.1 % (20.0-45.0) Monocytes (%) (Auto) 8.7 % (1.0-10.0) Eosinophils (%) (Auto) 1.6 % (0.0-3.0) Basophils (%) (Auto) 1.2 % (0.0-2.0) Sodium Level 138 MMOL/L (136-145) Potassium Level 4.1 MMOL/L (3.5-5.1) Chloride Level 103 MMOL/L (98-107) Carbon Dioxide Level 29 MMOL/L (21-32) Anion Gap 6 mmol/L (5-15) Blood Urea Nitrogen 14 mg/dL (7-18) Creatinine 1.4 MG/DL (0.55-1.30) H Estimat Glomerular Filtration Rate 45.1 mL/min (>60) Glucose Level 151 MG/DL (74-106) H Calcium Level 8.7 MG/DL (8.5-10.1) Jose F Barrow MD Feb 12, 2018 18:58
--- NOTE | 2018-02-12 19:48 | General Progress Note ---
Assessment/Plan Assessment/Plan Assessment - symptomatic umbilical hernia - s/p repair - post op wound pain Recommendations - Post op care - OOB - diet per surgery - outpatient colonoscopy later this year Subjective Allergies: Coded Allergies: NO KNOWN DRUG ALLERGIES (Unverified Allergy, Unknown, 02/10/18) Subjective Above noted better walking tolerating po Objective Last 24 Hour Vital Signs Date Time Temp Pulse Resp B/P (MAP) Pulse Ox O2 Delivery O2 Flow Rate FiO2 02/12/18 19:27 98.2 02/12/18 18:28 98.2 02/12/18 16:00 98.2 60 20 115/64 100 Room Air 98.2 02/12/18 12:00 98.1 68 20 125/72 100 Room Air 98.1 02/12/18 08:49 61 128/61 02/12/18 08:49 98.0 02/12/18 08:00 98.0 61 20 128/61 100 Room Air 98.0 02/12/18 04:00 97.6 62 18 139/73 100 Room Air 97.6 02/12/18 00:00 98.1 61 18 141/69 99 Room Air 98.1 02/11/18 20:00 98.0 61 19 127/65 99 Room Air 98.0 Intake and Output 02/11/18 02/12/18 19:00 07:00 Intake Total 1185 ml 1400 ml Output Total 665 ml 910 ml Balance 520 ml 490 ml Intake Oral 360 ml 300 ml IV Total 825 ml 1100 ml Output Urine Total 650 ml 900 ml Drainage Total 15 ml 10 ml Laboratory Tests 02/12/18 04:40: White Blood Count 6.2, Red Blood Count 3.72L, Hemoglobin 12.0, Hematocrit 37.5, Mean Corpuscular Volume 101H, Mean Corpuscular Hemoglobin 32.4H, Mean Corpuscular Hemoglobin Concent 32.1, Red Cell Distribution Width 12.4, Platelet Count 148L, Mean Platelet Volume 7.6, Neutrophils (%) (Auto) 48.4, Lymphocytes ( %) (Auto) 40.1, Monocytes (%) (Auto) 8.7, Eosinophils (%) (Auto) 1.6, Basophils (%) (Auto) 1.2, Sodium Level 138, Potassium Level 4.1, Chloride Level 103, Carbon Dioxide Level 29, Anion Gap 6, Blood Urea Nitrogen 14, Creatinine 1.4H, Estimat Glomerular Filtration Rate 45.1, Glucose Level 151H, Calcium Level 8.7 Height (Feet): 5 Height (Inches): 7.00 Weight (Pounds): 213 Objective WDWN obese AA woman NCAT supple CTA RRR soft obese, (+) wound no edema Patricia Barry MD Feb 12, 2018 19:48
[2018-02-12 20:00] VITALS: BP 100/63
[2018-02-13] VITALS: BP 130/70
[2018-02-13] MEDS: D5 1/2NS w/KCl 20mEq 1,000 ML IV SCH
[2018-02-13 04:00] VITALS: BP 129/63
[2018-02-13] MEDS: HYDROcodone/Acetamin 10/325 tab ORAL PRN ×2 (07:40→20:31)
[2018-02-13 08:05] VITALS: BP 116/54
[2018-02-13] MEDS: Docusate 250mg cap ORAL SCH ×2 (08:38→17:24)
[2018-02-13] MEDS: Allopurinol 100mg Tab ORAL SCH (08:38)
[2018-02-13] MEDS: Atenolol 25mg tab ORAL SCH (08:39)
[2018-02-13 12:00] VITALS: BP 107/53
--- NOTE | 2018-02-13 14:27 | General Progress Note ---
Progress Note Progress Note Surgery: no acute events. doing well. improved today. no n/v/f/c. comfortable. ambulatory. tolerating clears. abd soft, obese, non distended, incision c/d/i. drain output minimal. -advance to regular diet -d/c planning for tomorrow. -will d/c drain prior to discharge. Dwight Becerra Feb 13, 2018 14:27
[2018-02-13 16:00] VITALS: BP 118/54
--- NOTE | 2018-02-13 19:20 | General Progress Note ---
Assessment/Plan Assessment/Plan Assessment - symptomatic umbilical hernia - s/p repair - post op wound pain Recommendations - Post op care - OOB - diet per surgery - outpatient colonoscopy later this year Subjective Allergies: Coded Allergies: NO KNOWN DRUG ALLERGIES (Unverified Allergy, Unknown, 02/10/18) Subjective Above noted better walking tolerating po solids Objective Last 24 Hour Vital Signs Date Time Temp Pulse Resp B/P (MAP) Pulse Ox O2 Delivery O2 Flow Rate FiO2 02/13/18 16:00 98.2 62 20 118/54 100 Room Air 98.2 02/13/18 12:00 98.1 62 20 107/53 97 Room Air 98.1 02/13/18 08:39 64 116/54 02/13/18 08:30 98.2 02/13/18 08:05 98.2 64 20 116/54 92 Room Air 98.2 02/13/18 07:40 98.7 02/13/18 04:00 98.7 62 20 129/63 99 Room Air 98.7 02/13/18 00:00 98.6 66 20 130/70 99 Room Air 98.6 02/12/18 20:00 98.6 69 20 100/63 99 Room Air 98.6 Intake and Output 02/12/18 02/13/18 19:00 07:00 Intake Total 2340 ml 1200 ml Output Total 1515 ml 1338 ml Balance 825 ml -138 ml Intake Oral 1240 ml 600 ml IV Total 1100 ml 600 ml Output Urine Total 1500 ml 1330 ml Drainage Total 15 ml 8 ml Height (Feet): 5 Height (Inches): 7.00 Weight (Pounds): 213 Objective WDWN obese AA woman NCAT supple CTA RRR soft obese, (+) wound no edema Patricia Barry MD Feb 13, 2018 19:20
[2018-02-13 20:00] VITALS: BP 164/73
--- NOTE | 2018-02-13 20:15 | Cardiology Progress Note ---
Assessment/Plan Assessment/Plan left sided abd pain post hernia repair htn paf s/p ppi post op routine care dvt ppx sq heparin pneumatic stocking ahd abd pain and carmpin gnan the cramp make her sob will check lab cxr in am sats 100% room air duplex Subjective Cardiovascular: Denies: chest pain, lightheadedness Respiratory: Reports: shortness of breath Gastrointestinal/Abdominal: Reports: abdominal pain, constipated, other - cramping Genitourinary: Denies: burning Objective Last 24 Hour Vital Signs Date Time Temp Pulse Resp B/P (MAP) Pulse Ox O2 Delivery O2 Flow Rate FiO2 02/13/18 16:00 98.2 62 20 118/54 100 Room Air 98.2 02/13/18 12:00 98.1 62 20 107/53 97 Room Air 98.1 02/13/18 08:39 64 116/54 02/13/18 08:30 98.2 02/13/18 08:05 98.2 64 20 116/54 92 Room Air 98.2 02/13/18 07:40 98.7 02/13/18 04:00 98.7 62 20 129/63 99 Room Air 98.7 02/13/18 00:00 98.6 66 20 130/70 99 Room Air 98.6 General Appearance: no apparent distress, alert, obese Cardiovascular: normal rate Respiratory/Chest: lungs clear, normal breath sounds Abdomen: soft Extremities: no swelling Intake and Output 02/12/18 02/13/18 19:00 07:00 Intake Total 2340 ml 1200 ml Output Total 1515 ml 1338 ml Balance 825 ml -138 ml Intake Oral 1240 ml 600 ml IV Total 1100 ml 600 ml Output Urine Total 1500 ml 1330 ml Drainage Total 15 ml 8 ml Jose F Barrow MD Feb 13, 2018 20:15
--- NOTE | 2018-02-13 20:27 | General Progress Note ---
Assessment/Plan Status Narrative Incacerated umbilical hernia s/p repair with omental resection Post Op illeus Obstructive sleep apnea HTN atrial fibrillation Abdominal Pain Continue protonix Advance diet Ambulation Pain control Subjective Allergies: Coded Allergies: NO KNOWN DRUG ALLERGIES (Unverified Allergy, Unknown, 02/10/18) Subjective reports abdominal pain, loose bowel movement after suppository Objective Last 24 Hour Vital Signs Date Time Temp Pulse Resp B/P (MAP) Pulse Ox O2 Delivery O2 Flow Rate FiO2 02/13/18 16:00 98.2 62 20 118/54 100 Room Air 98.2 02/13/18 12:00 98.1 62 20 107/53 97 Room Air 98.1 02/13/18 08:39 64 116/54 02/13/18 08:30 98.2 02/13/18 08:05 98.2 64 20 116/54 92 Room Air 98.2 02/13/18 07:40 98.7 02/13/18 04:00 98.7 62 20 129/63 99 Room Air 98.7 02/13/18 00:00 98.6 66 20 130/70 99 Room Air 98.6 Intake and Output 02/12/18 02/13/18 19:00 07:00 Intake Total 2340 ml 1200 ml Output Total 1515 ml 1338 ml Balance 825 ml -138 ml Intake Oral 1240 ml 600 ml IV Total 1100 ml 600 ml Output Urine Total 1500 ml 1330 ml Drainage Total 15 ml 8 ml Height (Feet): 5 Height (Inches): 7.00 Weight (Pounds): 213 Cardiovascular: regular rhythm Respiratory/Chest: lungs clear, decreased breath sounds Abdomen: other - mirna in place, no redness, no discharge, [place] site with no surrounding infection Angie Warren MD Feb 13, 2018 20:27
[2018-02-14] VITALS: BP 145/70
[2018-02-14 04:00] VITALS: BP 148/69
[2018-02-14 07:44] LABS: BASOPHILS % (AUTO) 1.5 % (0.0-2.0); EOSINOPHILS % (AUTO) 1.7 % (0.0-3.0); HEMATOCRIT 36.7 % (37.0-47.0); HEMOGLOBIN 11.8 G/DL (12.0-16.0); LYMPHOCYTES % (AUTO) 32.1 % (20.0-45.0); MEAN CORPUSCULAR VOLUME 100 FL (80-99); MONOCYTES % (AUTO) 8.3 % (1.0-10.0); NEUTROPHILS % (AUTO) 56.4 % (45.0-75.0); PLATELET COUNT 149 K/UL (150-450); RED BLOOD COUNT 3.69 M/UL (4.20-5.40)
[2018-02-14 07:58] LABS: ANION GAP 5 mmol/L (5-15); BLOOD UREA NITROGEN 12 mg/dL (7-18); CALCIUM 9.1 MG/DL (8.5-10.1); CARBON DIOXIDE 31 MMOL/L (21-32); CHLORIDE 103 MMOL/L (98-107); CREATININE 1.3 MG/DL (0.55-1.30); POTASSIUM 4.3 MMOL/L (3.5-5.1); SODIUM 139 MMOL/L (136-145)
[2018-02-14] MEDS: Allopurinol 100mg Tab ORAL SCH (08:31)
[2018-02-14] MEDS: Docusate 250mg cap ORAL SCH (08:34)
[2018-02-14] MEDS: Atenolol 25mg tab ORAL SCH (08:35)
[2018-02-14 08:45] VITALS: BP 112/58
--- NOTE | 2018-02-14 09:23 | Diagnostic Imaging Report ---
EXAM: XR Chest, 1 View CLINICAL HISTORY: SOB TECHNIQUE: Frontal view of the chest. COMPARISON: Chest x-ray 02/12/18 1528 FINDINGS: Lungs: Slightly hypoventilatory lungs. Lungs clear. Vascularity within normal limits. Pleural space: Unremarkable. No pneumothorax. Heart: Unremarkable. No cardiomegaly. Mediastinum: Unremarkable. Bones/joints: Unremarkable. Tubes, lines and devices: Stable cardiac pacemaker. IMPRESSION: No acute findings.
[2018-02-14 12:00] VITALS: BP 126/64
--- NOTE | 2018-02-14 12:49 | General Progress Note ---
Assessment/Plan Assessment/Plan Assessment - symptomatic umbilical hernia - s/p repair - post op wound pain Recommendations - Post op care - OOB - diet per surgery - outpatient colonoscopy later this year Subjective Allergies: Coded Allergies: NO KNOWN DRUG ALLERGIES (Unverified Allergy, Unknown, 02/10/18) Subjective Above noted better no now symptoms Objective Last 24 Hour Vital Signs Date Time Temp Pulse Resp B/P (MAP) Pulse Ox O2 Delivery O2 Flow Rate FiO2 02/14/18 12:00 98.1 67 18 126/64 98 Room Air 98.1 02/14/18 08:45 98.3 63 18 112/58 98 Room Air 98.3 02/14/18 08:35 63 112/58 02/14/18 04:00 98.2 66 20 148/69 98 Room Air 98.2 02/14/18 00:00 99.0 71 20 145/70 95 Room Air 99.0 02/13/18 20:00 99.0 68 20 164/73 100 Nasal Cannula 3.0 99.0 02/13/18 16:00 98.2 62 20 118/54 100 Room Air 98.2 Intake and Output 02/13/18 02/14/18 19:00 07:00 Intake Total 870 ml 480 ml Output Total 908 ml 8 ml Balance -38 ml 472 ml Intake Oral 870 ml 480 ml Output Urine Total 900 ml Drainage Total 8 ml 8 ml # Voids 3 3 # Bowel Movements 1 10 Laboratory Tests 02/14/18 07:05: White Blood Count 6.0, Red Blood Count 3.69L, Hemoglobin 11.8L, Hematocrit 36.7L , Mean Corpuscular Volume 100H, Mean Corpuscular Hemoglobin 32.0H, Mean Corpuscular Hemoglobin Concent 32.1, Red Cell Distribution Width 12.0, Platelet Count 149L, Mean Platelet Volume 7.9, Neutrophils (%) (Auto) 56.4, Lymphocytes ( %) (Auto) 32.1, Monocytes (%) (Auto) 8.3, Eosinophils (%) (Auto) 1.7, Basophils (%) (Auto) 1.5, Sodium Level 139, Potassium Level 4.3, Chloride Level 103, Carbon Dioxide Level 31, Anion Gap 5, Blood Urea Nitrogen 12, Creatinine 1.3, Estimat Glomerular Filtration Rate 49.2, Glucose Level 110H, Calcium Level 9.1, Pro-B-Type Natriuretic Peptide 273H Height (Feet): 5 Height (Inches): 7.00 Weight (Pounds): 213 Objective WDWN obese AA woman NCAT supple CTA RRR soft obese, (+) wound no edema Patricia Barry MD Feb 14, 2018 12:49
[2018-02-14] MEDS ORDERED: NORCO 5-325 TA1 EACH ORAL (13:50)
[2018-02-14] MEDS ORDERED: COLACE100 MG ORAL (13:50)
[2018-02-14] MEDS ORDERED: IBUPROFEN600 MG ORAL (13:51)
[2018-02-14] MEDS: HYDROcodone/Acetamin 10/325 tab ORAL PRN (14:03)
--- NOTE | 2018-02-14 14:06 | General Progress Note ---
Progress Note Progress Note Surgery: doing well. no acute events. had BM today. mild intermittent nausea. no fever or chills. drain output minimal abd soft, non distended, non tender. wound c/d/i with mirna. drain serous drain removed at bedside wound care instructions given d/c home today follow up with dr Agustin Friday. thank you Dwight Becerra Feb 14, 2018 14:06
--- NOTE | 2018-02-14 15:32 | Cardiology Progress Note ---
Assessment/Plan Assessment/Plan reviewed all labs and ECG the patient is stable, no objective evidence of chest pain or dyspnea Subjective Subjective doing better today, less dyspnea, mild abdominal pain Objective Last 24 Hour Vital Signs Date Time Temp Pulse Resp B/P (MAP) Pulse Ox O2 Delivery O2 Flow Rate FiO2 02/14/18 12:00 98.1 67 18 126/64 98 Room Air 98.1 02/14/18 08:45 98.3 63 18 112/58 98 Room Air 98.3 02/14/18 08:35 63 112/58 02/14/18 04:00 98.2 66 20 148/69 98 Room Air 98.2 02/14/18 00:00 99.0 71 20 145/70 95 Room Air 99.0 02/13/18 20:00 99.0 68 20 164/73 100 Nasal Cannula 3.0 99.0 02/13/18 16:00 98.2 62 20 118/54 100 Room Air 98.2 General Appearance: no apparent distress EENT: PERRL/EOMI Neck: non-tender, no JVD Rhythm: NSR Cardiovascular: normal rate Respiratory/Chest: normal breath sounds Abdomen: distended, rebound Extremities: non-tender Intake and Output 02/13/18 02/14/18 19:00 07:00 Intake Total 870 ml 480 ml Output Total 908 ml 8 ml Balance -38 ml 472 ml Intake Oral 870 ml 480 ml Output Urine Total 900 ml Drainage Total 8 ml 8 ml # Voids 3 3 # Bowel Movements 1 10 Laboratory Tests Test 02/14/18 07:05 White Blood Count 6.0 K/UL (4.8-10.8) Red Blood Count 3.69 M/UL (4.20-5.40) L Hemoglobin 11.8 G/DL (12.0-16.0) L Hematocrit 36.7 % (37.0-47.0) L Mean Corpuscular Volume 100 FL (80-99) H Mean Corpuscular Hemoglobin 32.0 PG (27.0-31.0) H Mean Corpuscular Hemoglobin Concent 32.1 G/DL (32.0-36.0) Red Cell Distribution Width 12.0 % (11.6-14.8) Platelet Count 149 K/UL (150-450) L Mean Platelet Volume 7.9 FL (6.5-10.1) Neutrophils (%) (Auto) 56.4 % (45.0-75.0) Lymphocytes (%) (Auto) 32.1 % (20.0-45.0) Monocytes (%) (Auto) 8.3 % (1.0-10.0) Eosinophils (%) (Auto) 1.7 % (0.0-3.0) Basophils (%) (Auto) 1.5 % (0.0-2.0) Sodium Level 139 MMOL/L (136-145) Potassium Level 4.3 MMOL/L (3.5-5.1) Chloride Level 103 MMOL/L (98-107) Carbon Dioxide Level 31 MMOL/L (21-32) Anion Gap 5 mmol/L (5-15) Blood Urea Nitrogen 12 mg/dL (7-18) Creatinine 1.3 MG/DL (0.55-1.30) Estimat Glomerular Filtration Rate 49.2 mL/min (>60) Glucose Level 110 MG/DL (74-106) H Calcium Level 9.1 MG/DL (8.5-10.1) Pro-B-Type Natriuretic Peptide 273 pg/mL (0-125) H Ro Vazquez MD Feb 14, 2018 15:32
--- NOTE | 2018-02-18 08:16 | Geriatric Progress Note ---
Assessment/Plan Problems: (1) Abdominal pain (2) Postoperative ileus (3) GERD (gastroesophageal reflux disease) (4) Obesity (5) Obstructive sleep apnea (6) HTN (hypertension) (7) Dyslipidemia (8) Atrial fibrillation (9) Gout (10) Nausea Assessment/Plan Resolving ileus, no evidence infection or other intervening process. Convert pantoprazole to p.o. Continue to mobilize. Diet per surgery. Subjective Interval Events Dictated #[id number] Geriatric Geriatric Height (Feet): 5 Height (Inches): 7.00 Weight (Pounds): 213 TRENT BURTON Feb 18, 2018 08:16
--- NOTE | 2018-02-18 13:30 | Discharge Summary ---
DATE OF ADMISSION: 02/10/2018 DATE OF DISCHARGE: 02/14/2018 The patient was placed on observation status on February 10, 2018. DIAGNOSES: 1. Umbilical hernia repair with omental resection. 2. Postoperative ileus with abdominal pain. 3. Atypical chest pain. 4. Hypertension. 5. Dyslipidemia. 6. Obesity. 7. Obstructive sleep apnea. 8. Gastroesophageal reflux disease. 9. History of atypical chest pain, status post normal cardiac catheterization. 10. History of paroxysmal atrial fibrillation/flutter, status post pacer placement. 11. History of atypical right chest pain, suspected zoster. 12. Degenerative joint disease, notably bilateral knees. 13. 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 14. History of panic attacks. 15. History of headaches likely muscle tension. 16. Abdominal wall diastasis. 17. Status post tonsillectomy. 18. Status post hysteroscopy with cyst resection. 19. Hyperuricemia, possible gout. 20. B12 deficiency. 21. Vitamin D deficiency. 22. Obesity. HISTORY OF PRESENT ILLNESS: The patient is a 67-year-old woman, who presented approximately a month ago with complaints of mid abdominal tenderness precipitated by constipation. On examination, she was noted to have an incarcerated umbilical hernia and was referred to Dr. Agustin for evaluation. He recommended surgical repair, however, the patient delayed the surgery because she had family matter she needed to deal with including a trip. She would return and surgery was scheduled for February 10, 2018. Postoperatively, the patient has significant amount of pain and discomfort with persistent nausea. She was placed on observation status overnight. However, the symptoms did not resolve and the patient was noted to have postoperative ileus. She was therefore converted to a full admission. Because of some complaints in the left lower chest area, Cardiology consultation was requested from Dr. Barrow, who felt that there was no evidence of an ischemic etiology, but this is primarily a postoperative associated gastrointestinal surgery. Dr. Barry, who had seen the patient previously from a gastroenterologic point of view, also was asked to see the patient and he concurred that this is likely postoperative ileus with pain. He suggested the patient to have an outpatient colonoscopy once the symptoms resolved. Over the course of several days, the patient was tapered from intravenous analgesics to oral [place] and her pain and nausea symptoms gradually improved. She was able to pass gas the day prior to discharge and was able to tolerate some oral intake. Dr. Becerra, who saw the patient in coverage for Dr. Agustin, noted bowel movement on the day of discharge with minimal drain output, soft abdomen, which is nondistended and nontender, a clean wound, serous drainage, and mild intermittent nausea and pain. He removed the drain on the day of discharge and discharged the patient to home with followup with Dr. Agustin, in two days at the office. The patient wants to resume her outpatient medications, which included allopurinol 100 mg daily, aspirin 81 mg daily, atenolol 25 mg q.12 hours, vitamin B12 1000 mcg daily, omeprazole 20 mg daily, simvastatin 5 mg daily, Lexapro 5 mg daily, and tramadol 50 mg q. 6 hours p.r.n. In addition, she was given docusate 100 mg twice a day, [place] 5/325 every six hours p.r.n., and ibuprofen 400 mg q. 6 hours p.r.n. Cullen Willett M.D. DR: YAMINI JOB#: [id number] CC:
== END 2018-02-14 14:43 | disposition home or self-care (01) | DRG 354 ==
LOC: SUR 10:13 → 3E 14:47
PROC: 0DBU0ZZ Excision of Omentum, Open Approach (ICD-10-PCS; principal; 2018-02-10 13:00)
PROC: 0WQF0ZZ Repair Abdominal Wall, Open Approach (ICD-10-PCS; principal; 2018-02-10 13:00)
DX: K42.0 Umbilical hernia with obstruction, without gangrene (principal); K56.7 Ileus, unspecified; G47.33 Obstructive sleep apnea (adult) (pediatric); Z95.0 Presence of cardiac pacemaker; I10 Essential (primary) hypertension; E78.5 Hyperlipidemia, unspecified; I48.0 Paroxysmal atrial fibrillation; K21.9 Gastro-esophageal reflux disease without esophagitis; M17.0 Bilateral primary osteoarthritis of knee; F41.0 Panic disorder [episodic paroxysmal anxiety]; M10.9 Gout, unspecified; R07.89 Other chest pain; M62.08 Separation of muscle (nontraumatic), other site; E53.8 Deficiency of other specified B group vitamins; E55.9 Vitamin D deficiency, unspecified; E66.9 Obesity, unspecified
CPT/HCPCS: 36415; 71045; 71046; 80048; 80053; 81003; 83036; 83880; 84443; 85025; 85610; 85730; 87086; 87181; 93005; 93970; 94003; 94150; J2250; J2405; J2710

== ENCOUNTER 2018-09-25 13:32 | Outpatient (CLI) | payer MEDICARE, MEDICAID ==
[~2018-09-25 13:32] MED LIST changes: +IBUPROFEN600 MG ORAL; +NORCO 5-325 TA1 EACH ORAL; -ceFAZolin sod 2 GM in D5W 110 ML IVPB ONE
[2018-09-25 14:39] LABS: EOSINOPHILS % (AUTO) 2.9 % (0.0-3.0); HEMOGLOBIN 12.4 G/DL (12.0-16.0); LYMPHOCYTES % (AUTO) 43.5 % (20.0-45.0); MEAN CORPUSCULAR VOLUME 101 FL (80-99); MONOCYTES % (AUTO) 6.7 % (1.0-10.0); NEUTROPHILS % (AUTO) 45.9 % (45.0-75.0); PLATELET COUNT 168 K/UL (150-450); RED BLOOD COUNT 3.87 M/UL (4.20-5.40); RED CELL DISTRIBUTION WIDTH 12.2 % (11.6-14.8); WHITE BLOOD COUNT 4.1 K/UL (4.8-10.8)
--- NOTE | 2018-09-25 14:47 | Diagnostic Imaging Report ---
Indication: Chest pain and hypertension Technique: 2 views of the chest Comparison: 02/14/2018 Findings: Left chest pacemaker is again demonstrated. Lungs and pleural spaces are clear. Heart size is normal. There is tortuous and calcified. There are degenerative changes of both shoulders again noted Impression: No acute process
[2018-09-25 15:10] LABS: ALANINE AMINOTRANSFERASE 15 U/L (12-78); ALBUMIN 3.4 G/DL (3.4-5.0); ALBUMIN/GLOBULIN RATIO 0.9 (1.0-2.7); ALKALINE PHOSPHATASE 73 U/L (46-116); ANION GAP 8 mmol/L (5-15); ASPARTATE AMINO TRANSFERASE 20 U/L (15-37); BILIRUBIN,TOTAL 0.4 MG/DL (0.2-1.0); BLOOD UREA NITROGEN 15 mg/dL (7-18); CALCIUM 9.4 MG/DL (8.5-10.1); CARBON DIOXIDE 30 MMOL/L (21-32); CHLORIDE 105 MMOL/L (98-107); CREATININE 1.3 MG/DL (0.55-1.30); POTASSIUM 4.2 MMOL/L (3.5-5.1); SODIUM 143 MMOL/L (136-145)
== END 2018-09-25 15:30 | disposition home or self-care (01) ==
LOC: LAB 13:32
DX: R07.9 Chest pain, unspecified (principal); I10 Essential (primary) hypertension; Z95.0 Presence of cardiac pacemaker; I25.10 Atherosclerotic heart disease of native coronary artery without angina pectoris
CPT/HCPCS: 36415; 71046; 80053; 85025; 85651

== ENCOUNTER 2019-07-15 15:26 | Inpatient (IN) | payer MEDICARE, OTHER ==
[~2019-07-15] VITALS: Ht 170.2 cm; Wt 108.1 kg
--- NOTE | 2019-07-15 15:52 | Emergency Room Report ---
History of Present Illness General Chief Complaint: Dyspnea/Respdistress Source: Patient Present Illness HPI Patient is a 68-year-old female who presents after increased shortness of breath. Patient reports having worsening symptoms and had recently been seen by her primary care physician. She is followed by Dr. Barrow for cardiology due to paroxysmal atrial fibrillation. She denies any current shortness of breath. Patient has increased shortness of breath on exertion. She reports having no recent fever. She had not been having any cough. She denies any new leg swelling. She denies any chest pain currently. Allergies: Coded Allergies: NO KNOWN DRUG ALLERGIES (Unverified Allergy, Unknown, 02/10/18) Patient History Past Medical History: see triage record Reviewed Nursing Documentation: PMH: Agreed; PSxH: Agreed Nursing Documentation-PMH Past Medical History: No History, Except For Hx Cardiac Problems: No - gout Hx Hypertension: Yes Hx Pacemaker: Yes Hx Asthma: Yes Hx COPD: No - hyperthyroidsm, gout Hx Diabetes: No Hx Cancer: No Hx Gastrointestinal Problems: Yes Hx Dialysis: No Hx Neurological Problems: Yes Hx Cerebrovascular Accident: No Hx Seizures: No Hx Dizziness: Yes Hx Headaches: Yes Physical Exam Vital Signs Date Time Temp Pulse Resp B/P (MAP) Pulse Ox O2 Delivery O2 Flow Rate FiO2 07/15/19 15:44 98.2 73 13 142/67 (92) 100 Room Air General Appearance: non-toxic, mild distress, obese Eyes: bilateral eye PERRL ENT: hearing grossly normal Neck: full range of motion Respiratory: lungs clear, normal breath sounds, no rhonchi, no respiratory distress Cardiovascular #1: normal peripheral pulses, regular rate, rhythm, no edema Gastrointestinal: normal inspection, soft Musculoskeletal: normal inspection, normal range of motion Neurologic: normal inspection, alert, oriented x3, responsive, tile burner III-XII nml as tested, motor strength/tone normal Psychiatric: normal inspection Skin: normal color Medical Decision Making Diagnostic Impression: Primary Impression: Obesity Additional Impression: ACS (acute coronary syndrome) ER Course Patient presented for increased shortness of breath. Differential diagnosis include was not limited to pneumonia, viral respiratory infection, bronchitis among others. Because of complexity of patient's case laboratory tests and imaging studies were ordered. EKG interpreted by me showed paced rhythm rate of [address] or T wave changes. Patient reportedly had prior history of coronary artery calcifications on prior cath. Patient was discussed with Dr. Willett and patient will be admitted observed as inpatient due to increased dyspnea on exertion and possible unstable angina. Labs Test 07/15/19 15:55 07/15/19 16:35 White Blood Count 4.6 K/UL (4.8-10.8) Red Blood Count 3.93 M/UL (4.20-5.40) Hemoglobin 12.9 G/DL (12.0-16.0) Hematocrit 37.2 % (37.0-47.0) Mean Corpuscular Volume 95 FL (80-99) Mean Corpuscular Hemoglobin 32.7 PG (27.0-31.0) Mean Corpuscular Hemoglobin Concent 34.6 G/DL (32.0-36.0) Red Cell Distribution Width 10.8 % (11.6-14.8) Platelet Count 162 K/UL (150-450) Mean Platelet Volume 6.7 FL (6.5-10.1) Neutrophils (%) (Auto) 49.6 % (45.0-75.0) Lymphocytes (%) (Auto) 38.0 % (20.0-45.0) Monocytes (%) (Auto) 8.2 % (1.0-10.0) Eosinophils (%) (Auto) 2.5 % (0.0-3.0) Basophils (%) (Auto) 1.8 % (0.0-2.0) Prothrombin Time 10.5 SEC (9.30-11.50) Prothromb Time International Ratio 1.0 (0.9-1.1) Activated Partial Thromboplast Time 26 SEC (23-33) Sodium Level 138 MMOL/L (136-145) Potassium Level 4.0 MMOL/L (3.5-5.1) Chloride Level 100 MMOL/L (98-107) Carbon Dioxide Level 36 MMOL/L (21-32) Anion Gap 2 mmol/L (5-15) Blood Urea Nitrogen 18 mg/dL (7-18) Creatinine 1.6 MG/DL (0.55-1.30) Estimat Glomerular Filtration Rate 38.5 mL/min (>60) Glucose Level 111 MG/DL (74-106) Calcium Level 8.9 MG/DL (8.5-10.1) Total Bilirubin 0.4 MG/DL (0.2-1.0) Aspartate Amino Transf (AST/SGOT) 20 U/L (15-37) Alanine Aminotransferase (ALT/SGPT) 17 U/L (12-78) Alkaline Phosphatase 64 U/L (46-116) Troponin I 0.000 ng/mL (0.000-0.056) Pro-B-Type Natriuretic Peptide 128 pg/mL (0-125) Total Protein 7.2 G/DL (6.4-8.2) Albumin 3.5 G/DL (3.4-5.0) Globulin 3.7 g/dL Albumin/Globulin Ratio 0.9 (1.0-2.7) Thyroid Stimulating Hormone (TSH) 2.707 uiU/mL (0.358-3.740) EKG Diagnostic Results Rate: other - paced rhythm Rhythm: NSR ST Segments: no acute changes Rhythm Strip Diag. Results EP Interpretation: yes Rhythm: no PVC's, no ectopy, other Last Vital Signs Date Time Temp Pulse Resp B/P (MAP) Pulse Ox O2 Delivery O2 Flow Rate FiO2 07/15/19 15:44 98.2 73 13 142/67 (92) 100 Room Air Status: improved Disposition: PLACE IN OBSERVATION Condition: Stable Geovanni Ward MD Jul 15, 2019 15:52
[2019-07-15 15:54] VITALS: BP 140/73
--- NOTE | 2019-07-15 15:54 | NUR ---
ED Nurse Note: PT CAME IN DUE TO SOB. PT WAS SEEN AT DR BURTON'S OFFICE HAD SOB. PT DENIES CP OR ANY PAIN. AAO X4, FOLLOWS COMMANDS. RESPIRATIONS ARE EVN AND NON LABORED. LUNGS CLEAR UPON AUSCULTATION. 100 % O2 SAT IN ROOMA IR. FAMILY MEMBER AT THE BED SIDE.
--- NOTE | 2019-07-15 16:07 | NUR ---
ED Nurse Note: COLLECTED BLOOD THEN SENT.
[2019-07-15 16:17] LABS: BASOPHILS % (AUTO) 1.8 % (0.0-2.0); EOSINOPHILS % (AUTO) 2.5 % (0.0-3.0); HEMATOCRIT 37.2 % (37.0-47.0); HEMOGLOBIN 12.9 G/DL (12.0-16.0); MEAN CORPUSCULAR VOLUME 95 FL (80-99); MONOCYTES % (AUTO) 8.2 % (1.0-10.0); NEUTROPHILS % (AUTO) 49.6 % (45.0-75.0); PLATELET COUNT 162 K/UL (150-450); RED BLOOD COUNT 3.93 M/UL (4.20-5.40); RED CELL DISTRIBUTION WIDTH 10.8 % (11.6-14.8); WHITE BLOOD COUNT 4.6 K/UL (4.8-10.8)
[2019-07-15 16:30] LABS: ANION GAP 2 mmol/L (5-15); BLOOD UREA NITROGEN 18 mg/dL (7-18); CALCIUM 8.9 MG/DL (8.5-10.1); CARBON DIOXIDE 36 MMOL/L (21-32); CHLORIDE 100 MMOL/L (98-107); CREATININE 1.6 MG/DL (0.55-1.30); SODIUM 138 MMOL/L (136-145)
--- NOTE | 2019-07-15 16:40 | NUR ---
ED Nurse Note: PT RESTING ON BED WITH NON LABORED BREATHING. COLLECTED URINE THEN SENT.
[2019-07-15 16:42] LABS: ALANINE AMINOTRANSFERASE 17 U/L (12-78); ALBUMIN 3.5 G/DL (3.4-5.0); ALBUMIN/GLOBULIN RATIO 0.9 (1.0-2.7); ALKALINE PHOSPHATASE 64 U/L (46-116); ASPARTATE AMINO TRANSFERASE 20 U/L (15-37); BILIRUBIN,TOTAL 0.4 MG/DL (0.2-1.0)
[2019-07-15 17:26] LABS: APPEARANCE,URINE SLIGHTLY CLOUDY; BILIRUBIN, URINE NEGATIVE (NEGATIVE); COLOR,URINE PALE YELLOW; GLUCOSE, URINE (UA) NEGATIVE (NEGATIVE); KETONES,URINE NEGATIVE (NEGATIVE); LEUKOCYTE ESTERASE ,URINE NEGATIVE (NEGATIVE); NITRITE,URINE NEGATIVE (NEGATIVE); PH,URINE 7 (4.5-8.0); PROTEIN,URINE NEGATIVE (NEGATIVE); UROBILINOGEN,URINE NORMAL MG/DL (0.0-1.0)
[2019-07-15] MEDS ORDERED: Albuterol/Ipratropium 3ml neb HHN ONE (17:30)
--- NOTE | 2019-07-15 17:47 | NUR ---
ED Nurse Note: CALLED RT FOR BREATHING TREATMENT.
[2019-07-15 17:53] VITALS: BP 132/60
--- NOTE | 2019-07-15 19:05 | NUR ---
HAND-OFF: Report given to BRII IBRAHIM.
[2019-07-15 19:06] VITALS: BP 135/71
--- NOTE | 2019-07-15 19:06 | NUR ---
ED Nurse Note: Received report from Jessica IBRAHIM. Pt alert and oriented. No SOB. VSS.
[2019-07-15] MEDS ORDERED: Aspirin Baby 81mg ORAL ONE (19:15)
[2019-07-15 20:00] VITALS: BP 154/94
--- NOTE | 2019-07-15 20:02 | NUR ---
ED Nurse Note: Report given to Sal IBRAHIM from Tele.
[2019-07-15 20:30] VITALS: BP 137/74
--- NOTE | 2019-07-15 20:30 | NUR ---
TRANSFER TO FLOOR: Patient transferred to Telemetry unit. Report given to Sal IBRAHIM. Pt alert and oriented, verbally responsive. No SOB. Pt able to walk with steady gait. IV line on left hand 20g patent and intact. Med recon done. Belonging list done. VSS.
--- NOTE | 2019-07-15 20:40 | Cardiology Progress Note ---
Assessment/Plan Assessment/Plan exertiona sob no cp but coroanry artey calcification s/p pacer paf htn pro bnp min increased d dimer min increased will need pacere intrrogation will need to see if adequate rate response on the device may need carie avlarado [id number] Objective Last 24 Hour Vital Signs Date Time Temp Pulse Resp B/P (MAP) Pulse Ox O2 Delivery O2 Flow Rate FiO2 07/15/19 19:06 98.2 73 19 135/71 100 Room Air 21 07/15/19 18:14 66 18 100 Room Air 21 60 17 100 07/15/19 18:12 60 17 100 Room Air 21 07/15/19 17:53 98.6 60 20 132/60 97 Room Air 07/15/19 15:54 85 16 Room Air 07/15/19 15:54 98.6 85 16 140/73 100 Room Air 07/15/19 15:44 98.2 73 13 142/67 (92) 100 Room Air Laboratory Tests Test 07/15/19 15:55 07/15/19 16:35 White Blood Count 4.6 K/UL (4.8-10.8) L Red Blood Count 3.93 M/UL (4.20-5.40) L Hemoglobin 12.9 G/DL (12.0-16.0) Hematocrit 37.2 % (37.0-47.0) Mean Corpuscular Volume 95 FL (80-99) Mean Corpuscular Hemoglobin 32.7 PG (27.0-31.0) H Mean Corpuscular Hemoglobin Concent 34.6 G/DL (32.0-36.0) Red Cell Distribution Width 10.8 % (11.6-14.8) L Platelet Count 162 K/UL (150-450) Mean Platelet Volume 6.7 FL (6.5-10.1) Neutrophils (%) (Auto) 49.6 % (45.0-75.0) Lymphocytes (%) (Auto) 38.0 % (20.0-45.0) Monocytes (%) (Auto) 8.2 % (1.0-10.0) Eosinophils (%) (Auto) 2.5 % (0.0-3.0) Basophils (%) (Auto) 1.8 % (0.0-2.0) Prothrombin Time 10.5 SEC (9.30-11.50) Prothromb Time International Ratio 1.0 (0.9-1.1) Activated Partial Thromboplast Time 26 SEC (23-33) D-Dimer 1.09 mg/L FEU (0.00-0.49) H Sodium Level 138 MMOL/L (136-145) Potassium Level 4.0 MMOL/L (3.5-5.1) Chloride Level 100 MMOL/L (98-107) Carbon Dioxide Level 36 MMOL/L (21-32) H Anion Gap 2 mmol/L (5-15) L Blood Urea Nitrogen 18 mg/dL (7-18) Creatinine 1.6 MG/DL (0.55-1.30) H Estimat Glomerular Filtration Rate 38.5 mL/min (>60) Glucose Level 111 MG/DL (74-106) H Calcium Level 8.9 MG/DL (8.5-10.1) Total Bilirubin 0.4 MG/DL (0.2-1.0) Aspartate Amino Transf (AST/SGOT) 20 U/L (15-37) Alanine Aminotransferase (ALT/SGPT) 17 U/L (12-78) Alkaline Phosphatase 64 U/L (46-116) Troponin I 0.000 ng/mL (0.000-0.056) Pro-B-Type Natriuretic Peptide 128 pg/mL (0-125) H Total Protein 7.2 G/DL (6.4-8.2) Albumin 3.5 G/DL (3.4-5.0) Globulin 3.7 g/dL Albumin/Globulin Ratio 0.9 (1.0-2.7) L Thyroid Stimulating Hormone (TSH) 2.707 uiU/mL (0.358-3.740) Urine Color Pale yellow Urine Appearance Slightly cloudy Urine pH 7 (4.5-8.0) Urine Specific [place] 1.010 (1.005-1.035) Urine Protein Negative (NEGATIVE) Urine Glucose (UA) Negative (NEGATIVE) Urine Ketones Negative (NEGATIVE) Urine Blood 5+ (NEGATIVE) H Urine Nitrite Negative (NEGATIVE) Urine Bilirubin Negative (NEGATIVE) Urine Urobilinogen Normal MG/DL (0.0-1.0) Urine Leukocyte Esterase Negative (NEGATIVE) Urine RBC 40-60 /HPF (0 - 2) H Urine WBC 0-2 /HPF (0 - 2) Urine Squamous Epithelial Cells Few /LPF (NONE/OCC) Urine Bacteria Few /HPF (NONE) Jose F Barrow MD Jul 15, 2019 20:40
--- NOTE | 2019-07-15 20:40 | NUR ---
NURSE NOTES: Received report from Leo IBRAHIM from ED. Pt. arrived via gurney without any incident. Pt. shows no signs of acute distress. AOx4. Respiration even and non labored on room air. No sob noted. IV noted left hand 20g patent and intact. plant attendant on showing NSR. VSS. Oriented to room and location. Bed in lowest position, wheels locked and call button within reach. All needs attended and met. Called and received admission orders from primary MD. Will continue to monitor.
[2019-07-15 21:00] VITALS: BP 154/94
[2019-07-15] MEDS ORDERED: Docusate 100mg cap ORAL PRN (21:30)
--- NOTE | 2019-07-15 21:45 | Consultation ---
DATE OF CONSULTATION: 07/15/2019 CARDIOLOGY CONSULTATION CONSULTING PHYSICIAN: Jose F Barrow M.D. REFERRING PHYSICIAN: Cullen Willett M.D. REASON FOR REFERRAL: Exertional shortness of breath. HISTORY OF PRESENT ILLNESS: This is a middle-aged female who is known to me from prior evaluation and hospitalization, presented to the hospital because of symptoms of exertional shortness of breath that has been going on for approximately three weeks, only purely shortness of breath on exertion. She uses three pillows for comfort and she thinks that helps her breathing and has been like that for a number of years and that is not new for her, just purely exertional shortness of breath. She does not have any pain, pressure, tightness, heaviness, or discomfort in her chest when she walks around. There is no palpitations. No dizziness or lightheadedness. PAST MEDICAL HISTORY: Positive for hypertension, hyperlipidemia, history of chest pain, osteoarthritis, gastroesophageal reflux disease, hypertension, atrial fibrillation, sinus node dysfunction, status post permanent pacemaker implantation, coronary calcification, anxiety, and obesity. ALLERGIES: She is not allergic to any medications. SOCIAL HISTORY: She is two pack history of smoking that she quit 40 years ago. No alcohol. REVIEW OF SYSTEMS: GASTROINTESTINAL: She denies. GENITOURINARY: She denies. PULMONARY: She does have some sputum that she is unable to expectorate. CONSTITUTIONAL: No fevers, chills, or night sweats. NEUROLOGICAL: Negative. PHYSICAL EXAMINATION: GENERAL: Shows to be an obese female, in no respiratory distress. HEENT: Unremarkable. NECK: Supple. No jugular venous distention. No abdominojugular reflux noted. LUNGS: Clear to auscultation and percussion at this time. CARDIAC: Regular rate and rhythm. No heaves, thrills, or gallops noted. ABDOMEN: Soft, nontender. Positive bowel sounds. EXTREMITIES: There is 1+ edema of the lower extremities. LABORATORY AND DIAGNOSTIC DATA: Laboratory values, white count of 4.6, hemoglobin 12.9, and platelet count of 162,000. Sodium is 138, potassium 4.0, chloride 100, bicarbonate 36, BUN of 18, creatinine 1.6, and glucose of 111. Troponin is 0. ProBNP is only 128. Albumin of 3.5. TSH of 2.7. Coags, INR of 1 and PTT of 26, and D-dimer is 1.09. Urinalysis, 40 to 60 rbc's and 0 to 2 wbc's. EKG shows pacing, ventricular sensing, sinus, no ST or T-wave abnormalities of any significant degree. ASSESSMENT AND PLAN: 1. Exertional shortness of breath. 2. Obesity. 3. Hypertension. No coronary artery calcification. 4. Hyperlipidemia. 5. Gastroesophageal reflux disease. 6. History of atrial fibrillation previously. This patient was seen in cardiac consultation. The patient denies any chest pain, however, the exertional shortness of breath is of concern in light of the fact that she has coronary artery calcification. Cardiac enzymes will be performed and she will undergo myocardial perfusion imaging tomorrow to evaluate for any ischemic burden. Observation on telemetry for evidence of atrial fibrillation recurrence. Pacemaker interrogation will be needed to assess adequacy of her chronotropic competence, which may also be one of the causes of exertional shortness of breath. Jose F Barrow M.D. DR: MAREK JOB#: [id number] CC:
[2019-07-16] VITALS (7 sets, daily range): BP systolic 116–134; BP diastolic 50–87
--- NOTE | 2019-07-16 01:16 | History & Physical ---
History and Physical History & Physicial Date of Admission: July 15, 2019. Patient Identification: Ms. Fagan is a 68 year-old woman who presented in the office with complaint of increasing dyspnea on exertion over the last three weeks, with no history of palpitations, chest pressure or pain, fever, or congestion. In the office, she was comfortable at rest, but became breathless after walking less than fifty feet. She was referred to [place] for EKG, CXR, and laboratory studies, but on walking to admitting became very short of breath, and was directed to the Emergency Department. Based on concerns for decompensated cardiac or pulmonary pathology leading to her symptoms, she is admitted for further evaluation and treatment. History of Present Illness: Ms. Fagan is a patient with a number of chronic medical problems. In the past she has had recurrent chest pain with a negative ischemia work-up except for evidence of significant calcified arterial sclerotic changes. She also has a history of obstructive sleep apnea and was prescribed a CPAP machine a number of years ago. Because of the sensation of suffocation, Ms. Fagan has had not used her CPAP for over a year she normally sleeps with 3-4 pillows elevation, but denies definite symptoms of orthopnea. She was last hospitalized at [facility] in January of last year when she had evidence of an incarcerated umbilical hernia requiring repair with omental resection. Since that time she is done relatively well. However she was noted to have paroxysmal atrial fibrillation and was treated with pacemaker placement as well as a recommendation for chronic anticoagulation. Because of prior intracranial hemorrhagic complications of friends, Ms. Fagan been extremely reluctant and has avoided beginning anticoagulation therapy, despite a full discussion of the risks and benefits. On the present occasion, Ms. Fagan presented at the office on the day of admission, with a history of increasing dyspnea on even minor exertion which had worsened over the last 3 weeks. As noted above there were no other associated symptoms, and there was no symptomatology when she was at rest. The office examination was unremarkable with no evidence of pulmonary changes and no peripheral edema. Ms. Fagan was referred to the [place] outpatient services for chest x-ray, electrocardiogram, and laboratory studies. On her way to the admitting department she became extremely dyspneic was instead referred to the emergency department. In the emergency department the patient' s evaluation was fairly unremarkable. There was evidence of mild azotemia likely prerenal in etiology, minimal elevations of d-dimer and BNP, negative cardiac enzymes, and an incidental finding of microscopic hematuria without other abnormalities. Chest x-ray failed to show any evidence of acute infiltrate or fluid redistribution. Because of the severity of her dyspnea, she was placed on observation status for further evaluation and treatment. In the emergency room, Ms. Fagan remained comfortable when fully addressed but became fairly dyspneic with even minimal movement. Her oxygen saturations were 100% at rest. She denied all other symptoms including fever cough, congestion, shortness of breath, pleuritic chest pain, chest chest pressure or palpitations. Past Medical History: 1. Prior history of atypical chest pain, status post normal cardiac catheterization. 2. Paroxysmal atrial fibrillation s/p pacer. 2. Hypertension. 3. Dyslipidemia. 4. Obesity. 5. Obstructive sleep apnea. 6. Gastroesophageal reflux disease. 7. History of atypic. 8. History of atypical right chest pain, suspected zoster. 9. Degenerative joint disease, notably bilateral knees. 10. 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 11. History of panic attacks. 12. History of headaches likely muscle tension. 13. Abdominal wall diastasis, umbilical hernia s/p repair with omental resection. 14. Status post tonsillectomy. 15. Status post hysteroscopy with cyst resection. 16. Hyperuricemia, possible gout. 17. B12 deficiency. 18. Vitamin D deficiency. 19. Obesity. Medications: 1. DuoNeb unit dose every 4 hours as needed by nebulizer. 2. Allopurinol 100 mg daily. 3. Aspirin 81 mg daily. 4. Atenolol 25 mg daily. 5. Docusate 100 mg twice daily. 6. Vit D3 5000u daily. 7. Vit B12 1000mcg daily. 8. Omeprazole 20 mg daily. 9. Simvastatin 10 mg qhs. 10. Tramadol 50mg q6 prn. Allergies: NKDA. Social History: Born in [place], college education. 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 in 1971. Lives with son in apartment. No significant ETOH or tobacco use. Family History: Mother at age 90 with heart disease and dementia. Father at age 88 with heart disease. Brother in 1970 from gunshot wound. Son with CHF, COPD, MALINDA, asthma, obesity, LE cellulitis, borderline diabetes. Hx of pancreatic, liver cancer in maternal uncle. Hx of breast cancer in paternal aunt with hx of substance abuse and alcohol. Review of Systems: General: Feels well except for dyspnea on exertion. Head/neck: No excessive headaches. Occasional headache and tenderness in the left occipital area lasting only a few minutes not requiring medication. Pulmonary: No cough, congestion, pleuritic chest pain, wheezing. Cardiac: No chest pressure or pain, no palpitations. Gastrointestinal: No change in appetite, no change in bowel pattern. Genitourinary: No hematuria, no dysuria, no flank discomfort. Neurologic: No weakness, no change in coordination, no change in mental status Physical Examination: Blood pressure 137/74, heart rate 75 and regular, respiratory rate 18, temperature 98.7, oxygen saturation 99% on room air. Head/neck: Normocephalic, atraumatic. Minimal tenderness to palpation over the lower occipital area on the right. Normal range of motion without apparent cervical masses. Chest: Clear mildly distant breath sounds without wheezes or rhonchi. Pacemaker in place in the left clavicular area. Cardiac: Regular rhythm. Abdomen: Normal bowel sounds, soft, nontender without masses or organomegaly appreciated. Moderately protuberant secondary to obesity. Extremities: No significant peripheral edema, no cords appreciated. Neurologic: No evidence of new focality. Mental status consistent with baseline. Laboratories: WBC 4.6, hematocrit 37.2%, MCV 95, platelet count 162. INR 1.0, PTT 26, d- dimer 1.09. Urinalysis with 5+ blood, 40-60 RBCs, 0-2 WBCs, few bacteria, negative leukocyte esterase, and negative nitrite. Sodium 138, potassium 4.0, chloride 100, bicarb 36, BUN 18, creatinine 1.6, glucose 111, calcium 8.9, total bilirubin 0.4, AST 20, ALT 17, alkaline phosphatase 64, troponin 0 0.000, proBNP 128, total protein 7.2, albumin 3.5, TSH 2.707. Electrocardiogram shows a paced rhythm. Chest x-ray shows no evidence of acute infiltrates or fluid redistribution. Impression: 1. Ms. Fagan presents with significant subacute to acute dyspnea on exertion. Initial work-up is somewhat unrevealing. Cardiology cardiology consultation has been requested from Dr. Barrow, who has raised chronotropic incompetence as a possible etiology. A cardiac echo, venous Dopplers, and Lexiscan have been ordered for further evaluation, as well as pacer interrogation. Pulmonary consultation is also been ordered from Dr. Macdonald and Dr. Boss. 2. The microscopic hematuria is likely an incidental finding and not directly related to her current presentation. If initial work-up is not helpful more exotic etiologies including some type of pulmonary-renal pathology might need to be considered. 3. The patient's other underlying medical problems appear to be adequately controlled on her present therapy, and these will be continued. Further evaluation treatment will be dependent on the initial results and therapeutic response. Cullen Willett MD Jul 16, 2019 01:16
[2019-07-16 06:40] LABS: EOSINOPHILS % (AUTO) 3.7 % (0.0-3.0); HEMATOCRIT 37.6 % (37.0-47.0); HEMOGLOBIN 12.2 G/DL (12.0-16.0); MEAN CORPUSCULAR VOLUME 100 FL (80-99); MONOCYTES % (AUTO) 7.3 % (1.0-10.0); PLATELET COUNT 151 K/UL (150-450); RED BLOOD COUNT 3.78 M/UL (4.20-5.40); RED CELL DISTRIBUTION WIDTH 12.1 % (11.6-14.8); WHITE BLOOD COUNT 4.4 K/UL (4.8-10.8)
--- NOTE | 2019-07-16 07:24 | NUR ---
NURSE NOTES: Received report from ALEXANDRIA Huang. Patient is walking in room. Smiling and no signs of SOB. Cardiology in room to get consent for lexiscan today--cards RN will verify with dr. Murcia if scan will continue in light of patient's history of asthma. Patient is NPO now with no sign of respiratory or cardiac distress. yellow socks on and reminded patient to call for help --appears to be walking with steady, strong gait and denies any LOW or dizziness.
[2019-07-16 07:31] LABS: ANION GAP 3 mmol/L (5-15); BLOOD UREA NITROGEN 19 mg/dL (7-18); CALCIUM 8.7 MG/DL (8.5-10.1); CARBON DIOXIDE 32 MMOL/L (21-32); CHLORIDE 101 MMOL/L (98-107); CREATININE 1.4 MG/DL (0.55-1.30); POTASSIUM 4.2 MMOL/L (3.5-5.1); SODIUM 136 MMOL/L (136-145)
[2019-07-16] MEDS ORDERED: Lexiscan 0.4mg/5ml syringe IV PRN (08:00)
[2019-07-16] MEDS: Aspirin EC 81mg tab ORAL SCH (08:29)
[2019-07-16] MEDS: Allopurinol 100mg Tab ORAL SCH (08:30)
[2019-07-16] MEDS: Docusate 100mg cap ORAL SCH ×2 (08:30→17:36)
--- NOTE | 2019-07-16 08:56 | NUR ---
NURSE NOTES: 830am: Message on urgent line for Dr Macdonald to inquire who is covering during his absence. Greeting said "summer" ?
[2019-07-16] MEDS ORDERED: Atenolol 25mg tab ORAL SCH (09:00)
--- NOTE | 2019-07-16 09:23 | NUR ---
NURSE NOTES: ed case manager stated that Dr Murcia available for [address] Barrow authorized scan despite history of asthma. This RN will continue to reach out to pulmonology. Awaiting call back from Dr Macdonald's group.
--- NOTE | 2019-07-16 10:30 | NUR ---
CASE MANAGEMENT:REVIEW 68 YR OLD FEMALE SENT OVER FROM MD'S OFFICE CC; SOB SI: ACS 98.2 73 13 142/67 100% ON RA CO2+36 CR+1.6 TROPONIN(-) IS: KARLIE HHN ASA PO CHEST XRAY : TO TELEMETRY PLAN: STRESS TEST
--- NOTE | 2019-07-16 10:52 | NUR ---
NURSE NOTES: 0681am: Spoke with office of pulradu Sanchez after learning from Dr Macdonald's office that he is covering for his patients. Left message as Dr Sanchez is currently seeing patients at other hosp per his office. Addendum: 07/16/19 at 1146 by Christian Noriega RN Dr Boss to see patient per Dr Willett.
--- NOTE | 2019-07-16 11:02 | Diagnostic Imaging Report ---
Indication: Dyspnea Comparison: 09/25/2018 A single view chest radiograph was obtained. Findings: No definite infiltrate or pulmonary vascular congestion identified. There is a pacemaker in the left anterior chest wall. The heart is enlarged. The aorta is mildly enlarged consistent with atherosclerotic vascular disease. The bones are osteopenic. Impression: No acute disease. No change
--- NOTE | 2019-07-16 11:28 | Pulmonology Progress Note ---
Assessment/Plan Assessment/Plan Pulmonary Consultation HPI Patient is a 68-year-old female admitted complaining of shortness of breath, associated with excercise. Denies chest pain. S/p Pacemaker insertion, has history of Paroxysmal Atrial Fibrillation, Coronary Artery Calcification. She denies any current shortness of breath. She denies fever or cough. She denies any leg swelling. She denies any chest pain currently. No history of Asthma, currently receiving PRN HHN. Has history of previous dizziness, headaches Noted to have mild elevation in BNP Allergies: NO KNOWN DRUG ALLERGIES Past Medical History: S/p Pacemaker insertion, Paroxysmal Atrial Fibrillation, Hypertension, Obesity, Obstructive Sleep Apnea, Coronary Artery Calcification, Hyperthyroidism, Gout Reviewed Nursing Documentation: PMH: Agreed; PSxH: Agreed Physical Exam Vital Signs Noted General: WDWN, no distress, BMI 37.3 HEENT: NCAT, moist mm Chest: CTAB Heart: HS1, HS2, RRR Abdomen: SNTND Extremities: Well perfused, no edema UNDERCOVER AGENT: Intact Impression: Shortness of breath Elevated NPA level S/p Pacemaker insertion Paroxysmal Atrial Fibrillation Hypertension MALINDA Coronary Artery Calcification Hyperthyroidism Gout Obesity Plan: Continue O2 PRN HHN PRN BiPAP QHS Await cardiac work up Monitor labs PPX SECURITY MANAGEMENT SPECIALIST medications Will need out patient Pulmonary Function Testing. Labs Test 07/15/19 15:55 07/15/19 16:35 White Blood Count 4.6 K/UL (4.8-10.8) Red Blood Count 3.93 M/UL (4.20-5.40) Hemoglobin 12.9 G/DL (12.0-16.0) Hematocrit 37.2 % (37.0-47.0) Mean Corpuscular Volume 95 FL (80-99) Mean Corpuscular Hemoglobin 32.7 PG (27.0-31.0) Mean Corpuscular Hemoglobin Concent 34.6 G/DL (32.0-36.0) Red Cell Distribution Width 10.8 % (11.6-14.8) Platelet Count 162 K/UL (150-450) Mean Platelet Volume 6.7 FL (6.5-10.1) Neutrophils (%) (Auto) 49.6 % (45.0-75.0) Lymphocytes (%) (Auto) 38.0 % (20.0-45.0) Monocytes (%) (Auto) 8.2 % (1.0-10.0) Eosinophils (%) (Auto) 2.5 % (0.0-3.0) Basophils (%) (Auto) 1.8 % (0.0-2.0) Prothrombin Time 10.5 SEC (9.30-11.50) Prothromb Time International Ratio 1.0 (0.9-1.1) Activated Partial Thromboplast Time 26 SEC (23-33) Sodium Level 138 MMOL/L (136-145) Potassium Level 4.0 MMOL/L (3.5-5.1) Chloride Level 100 MMOL/L (98-107) Carbon Dioxide Level 36 MMOL/L (21-32) Anion Gap 2 mmol/L (5-15) Blood Urea Nitrogen 18 mg/dL (7-18) Creatinine 1.6 MG/DL (0.55-1.30) Estimat Glomerular Filtration Rate 38.5 mL/min (>60) Glucose Level 111 MG/DL (74-106) Calcium Level 8.9 MG/DL (8.5-10.1) Total Bilirubin 0.4 MG/DL (0.2-1.0) Aspartate Amino Transf (AST/SGOT) 20 U/L (15-37) Alanine Aminotransferase (ALT/SGPT) 17 U/L (12-78) Alkaline Phosphatase 64 U/L (46-116) Troponin I 0.000 ng/mL (0.000-0.056) Pro-B-Type Natriuretic Peptide 128 pg/mL (0-125) Total Protein 7.2 G/DL (6.4-8.2) Albumin 3.5 G/DL (3.4-5.0) Globulin 3.7 g/dL Albumin/Globulin Ratio 0.9 (1.0-2.7) Thyroid Stimulating Hormone (TSH) 2.707 uiU/mL (0.358-3.740) EKG: Rate: other - paced rhythm Rhythm: NSR ST Segments: no acute changes CXR: No acute disease Subjective ROS Limited/Unobtainable: No Allergies: Coded Allergies: NO KNOWN DRUG ALLERGIES (Unverified Allergy, Unknown, 02/10/18) Objective Last 24 Hour Vital Signs Date Time Temp Pulse Resp B/P (MAP) Pulse Ox O2 Delivery O2 Flow Rate FiO2 07/16/19 09:16 Room Air 11/15/19 08:25 87 130/66 07/16/19 08:00 60 07/16/19 07:48 98.0 87 18 130/66 (87) 99 07/16/19 04:00 97.5 64 18 134/67 (89) 98 07/16/19 04:00 60 07/16/19 00:00 63 07/16/19 00:00 97.7 61 17 131/56 (81) 97 07/15/19 21:00 Room Air 07/15/19 21:00 80 07/15/19 21:00 98.4 69 20 154/94 (114) 95 07/15/19 21:00 Room Air 07/15/19 20:30 98.7 75 18 137/74 99 Room Air 21 07/15/19 20:30 98.7 75 18 137/74 99 Room Air 21 07/15/19 19:06 98.2 73 19 135/71 100 Room Air 21 07/15/19 18:14 66 18 100 Room Air 21 60 17 100 07/15/19 18:12 60 17 100 Room Air 21 07/15/19 17:53 98.6 60 20 132/60 97 Room Air 07/15/19 15:54 85 16 Room Air 07/15/19 15:54 98.6 85 16 140/73 100 Room Air 07/15/19 15:44 98.2 73 13 142/67 (92) 100 Room Air Intake and Output 07/15/19 07/16/19 19:00 07:00 Intake Total 600 ml Balance 600 ml Intake Oral 600 ml # Voids 1 3 Laboratory Tests 07/15/19 15:55: White Blood Count 4.6L, Red Blood Count 3.93L, Hemoglobin 12.9, Hematocrit 37.2 , Mean Corpuscular Volume 95, Mean Corpuscular Hemoglobin 32.7H, Mean Corpuscular Hemoglobin Concent 34.6, Red Cell Distribution Width 10.8L, Platelet Count 162, Mean Platelet Volume 6.7, Neutrophils (%) (Auto) 49.6, Lymphocytes (%) (Auto) 38.0, Monocytes (%) (Auto) 8.2, Eosinophils (%) (Auto) 2.5, Basophils (%) (Auto) 1.8, Prothrombin Time 10.5, Prothromb Time International Ratio 1.0, Activated Partial Thromboplast Time 26, D-Dimer 1.09H, Sodium Level 138, Potassium Level 4.0, Chloride Level 100, Carbon Dioxide Level 36H, Anion Gap 2L, Blood Urea Nitrogen 18, Creatinine 1.6H, Estimat Glomerular Filtration Rate 38.5, Glucose Level 111H, Calcium Level 8.9, Total Bilirubin 0.4 , Aspartate Amino Transf (AST/SGOT) 20, Alanine Aminotransferase (ALT/SGPT) 17, Alkaline Phosphatase 64, Troponin I 0.000, Pro-B-Type Natriuretic Peptide 128H, Total Protein 7.2, Albumin 3.5, Globulin 3.7, Albumin/Globulin Ratio 0.9L, Thyroid Stimulating Hormone (TSH) 2.707 07/15/19 16:35: Urine Color Pale yellow, Urine Appearance Slightly cloudy, Urine pH 7, Urine Specific [place] 1.010, Urine Protein Negative, Urine Glucose (UA) Negative, Urine Ketones Negative, Urine Blood 5+H, Urine Nitrite Negative, Urine Bilirubin Negative, Urine Urobilinogen Normal, Urine Leukocyte Esterase Negative , Urine RBC 40-60H, Urine WBC 0-2, Urine Squamous Epithelial Cells Few, Urine Bacteria Few 07/16/19 06:07: White Blood Count 4.4L, Red Blood Count 3.78L, Hemoglobin 12.2, Hematocrit 37.6 , Mean Corpuscular Volume 100H, Mean Corpuscular Hemoglobin 32.3H, Mean Corpuscular Hemoglobin Concent 32.4, Red Cell Distribution Width 12.1, Platelet Count 151, Mean Platelet Volume 7.1, Neutrophils (%) (Auto) 40.0L, Lymphocytes ( %) (Auto) 48.0H, Monocytes (%) (Auto) 7.3, Eosinophils (%) (Auto) 3.7H, Basophils (%) (Auto) 1.0, Sodium Level 136, Potassium Level 4.2, Chloride Level 101, Carbon Dioxide Level 32, Anion Gap 3L, Blood Urea Nitrogen 19H, Creatinine 1.4H, Estimat Glomerular Filtration Rate 45.1, Glucose Level 113H, Calcium Level 8.7, Troponin I 0.001 Current Medications Medications (Trade) Dose Ordered Sig/Ganesh Route PRN Reason Start Time Stop Time Status Last Admin Dose Admin Allopurinol (Zyloprim) 100 mg DAILY ORAL 07/16/19 09:00 08/15/19 08:59 07/16/19 08:30 Aspirin (Ecotrin) 81 mg DAILY ORAL 07/16/19 09:00 08/15/19 08:59 07/16/19 08:29 Atenolol (Tenormin) 25 mg DAILY ORAL 07/16/19 09:00 08/15/19 08:59 Colchicine (Colchicine) 0.6 mg PRN PRN ORAL gout 07/15/19 22:00 08/14/19 21:29 Docusate Sodium (Colace) 100 mg NEEDED PRN ORAL constipation 07/15/19 21:30 08/14/19 21:29 Docusate Sodium (Colace) 100 mg TWICE A DAY ORAL 07/16/19 09:00 08/15/19 08:59 07/16/19 08:30 Regadenoson (Lexiscan) 0.4 mg ONCE PRN IV stress test 07/16/19 08:00 07/16/19 18:00 Herb Boss MD Jul 16, 2019 11:28
--- NOTE | 2019-07-16 11:46 | NUR ---
NURSE NOTES: Dr Willett at bedside. patient voided x2 in commode. Appears steady on her feet. Addendum: 07/16/19 at 1159 by Christian Noriega RN Dr Boss placed tel order for duonebs , pulmonary function test including pre/post peak flow testing. Spoke with Keyona from [facility] who will come to bedside soon.
--- NOTE | 2019-07-16 11:48 | Geriatric Progress Note ---
Assessment/Plan Problems: (1) Dyspnea on minimal exertion (2) Obesity (3) Hypertension (4) Dyslipidemia (5) Obstructive sleep apnea (6) GERD (gastroesophageal reflux disease) (7) Atrial fibrillation (8) Headache Assessment/Plan Patient remains significantly symptomatic with minimal exertion. Will convert to full admission while w/u continues. Discussed with Dr. Barrow, Dr. Boss. Recheck labs. Resume Protonix, Simvastatin. Discussed with: patient, hospital staff Subjective Interval Events Patient continues to note dyspnea with minimal exertion. Otherwise, feels well. Echo with mild diastolic dysfunction and peak RV systolic of 30mmHg. Venous dopplers of LEs negative. Lexiscan in progress. Dr. Boss has requested CT scan of chest and PFTs. He also ordered BiPAP for sleep if the patient can tolerate. Repeat laboratories with mild improvement in azotemia. Staff notes no additional functional issues. Constitutional: Denies: chills, pain, sweats, fever Respiratory: Denies: cough, orthopnea, stridor, wheezing, sputum, hemoptysis Cardiovascular: Denies: chest pain, palpitations Gastrointestinal/Abdominal: Denies: abdominal pain, nausea Genitourinary: Denies: dysuria Geriatric Geriatric Last 24 Hour Vital Signs Date Time Temp Pulse Resp B/P (MAP) Pulse Ox O2 Delivery O2 Flow Rate FiO2 07/16/19 09:16 Room Air 07/16/19 08:25 87 130/66 07/16/19 08:00 60 07/16/19 07:48 98.0 87 18 130/66 (87) 99 07/16/19 04:00 97.5 64 18 134/67 (89) 98 07/16/19 04:00 60 07/16/19 00:00 63 07/16/19 00:00 97.7 61 17 131/56 (81) 97 07/15/19 21:00 Room Air 07/15/19 21:00 80 07/15/19 21:00 98.4 69 20 154/94 (114) 95 07/15/19 21:00 Room Air 07/15/19 20:30 98.7 75 18 137/74 99 Room Air 21 07/15/19 20:30 98.7 75 18 137/74 99 Room Air 21 07/15/19 19:06 98.2 73 19 135/71 100 Room Air 21 07/15/19 18:14 66 18 100 Room Air 21 60 17 100 07/15/19 18:12 60 17 100 Room Air 21 07/15/19 17:53 98.6 60 20 132/60 97 Room Air 07/15/19 15:54 85 16 Room Air 07/15/19 15:54 98.6 85 16 140/73 100 Room Air 07/15/19 15:44 98.2 73 13 142/67 (92) 100 Room Air Intake and Output 07/15/19 07/16/19 19:00 07:00 Intake Total 600 ml Balance 600 ml Intake Oral 600 ml # Voids 1 3 Laboratory Tests Test 07/15/19 15:55 07/15/19 16:35 07/16/19 06:07 White Blood Count 4.6 K/UL (4.8-10.8) L 4.4 K/UL (4.8-10.8) L Red Blood Count 3.93 M/UL (4.20-5.40) L 3.78 M/UL (4.20-5.40) L Hemoglobin 12.9 G/DL (12.0-16.0) 12.2 G/DL (12.0-16.0) Hematocrit 37.2 % (37.0-47.0) 37.6 % (37.0-47.0) Mean Corpuscular Volume 95 FL (80-99) 100 FL (80-99) H Mean Corpuscular Hemoglobin 32.7 PG (27.0-31.0) H 32.3 PG (27.0-31.0) H Mean Corpuscular Hemoglobin Concent 34.6 G/DL (32.0-36.0) 32.4 G/DL (32.0-36.0) Red Cell Distribution Width 10.8 % (11.6-14.8) L 12.1 % (11.6-14.8) Platelet Count 162 K/UL (150-450) 151 K/UL (150-450) Mean Platelet Volume 6.7 FL (6.5-10.1) 7.1 FL (6.5-10.1) Neutrophils (%) (Auto) 49.6 % (45.0-75.0) 40.0 % (45.0-75.0) L Lymphocytes (%) (Auto) 38.0 % (20.0-45.0) 48.0 % (20.0-45.0) H Monocytes (%) (Auto) 8.2 % (1.0-10.0) 7.3 % (1.0-10.0) Eosinophils (%) (Auto) 2.5 % (0.0-3.0) 3.7 % (0.0-3.0) H Basophils (%) (Auto) 1.8 % (0.0-2.0) 1.0 % (0.0-2.0) Prothrombin Time 10.5 SEC (9.30-11.50) Prothromb Time International Ratio 1.0 (0.9-1.1) Activated Partial Thromboplast Time 26 SEC (23-33) D-Dimer 1.09 mg/L FEU (0.00-0.49) H Sodium Level 138 MMOL/L (136-145) 136 MMOL/L (136-145) Potassium Level 4.0 MMOL/L (3.5-5.1) 4.2 MMOL/L (3.5-5.1) Chloride Level 100 MMOL/L (98-107) 101 MMOL/L (98-107) Carbon Dioxide Level 36 MMOL/L (21-32) H 32 MMOL/L (21-32) Anion Gap 2 mmol/L (5-15) L 3 mmol/L (5-15) L Blood Urea Nitrogen 18 mg/dL (7-18) 19 mg/dL (7-18) H Creatinine 1.6 MG/DL (0.55-1.30) H 1.4 MG/DL (0.55-1.30) H Estimat Glomerular Filtration Rate 38.5 mL/min (>60) 45.1 mL/min (>60) Glucose Level 111 MG/DL (74-106) H 113 MG/DL (74-106) H Calcium Level 8.9 MG/DL (8.5-10.1) 8.7 MG/DL (8.5-10.1) Total Bilirubin 0.4 MG/DL (0.2-1.0) Aspartate Amino Transf (AST/SGOT) 20 U/L (15-37) Alanine Aminotransferase (ALT/SGPT) 17 U/L (12-78) Alkaline Phosphatase 64 U/L (46-116) Troponin I 0.000 ng/mL (0.000-0.056) 0.001 ng/mL (0.000-0.056) Pro-B-Type Natriuretic Peptide 128 pg/mL (0-125) H Total Protein 7.2 G/DL (6.4-8.2) Albumin 3.5 G/DL (3.4-5.0) Globulin 3.7 g/dL Albumin/Globulin Ratio 0.9 (1.0-2.7) L Thyroid Stimulating Hormone (TSH) 2.707 uiU/mL (0.358-3.740) Urine Color Pale yellow Urine Appearance Slightly cloudy Urine pH 7 (4.5-8.0) Urine Specific [place] 1.010 (1.005-1.035) Urine Protein Negative (NEGATIVE) Urine Glucose (UA) Negative (NEGATIVE) Urine Ketones Negative (NEGATIVE) Urine Blood 5+ (NEGATIVE) H Urine Nitrite Negative (NEGATIVE) Urine Bilirubin Negative (NEGATIVE) Urine Urobilinogen Normal MG/DL (0.0-1.0) Urine Leukocyte Esterase Negative (NEGATIVE) Urine RBC 40-60 /HPF (0 - 2) H Urine WBC 0-2 /HPF (0 - 2) Urine Squamous Epithelial Cells Few /LPF (NONE/OCC) Urine Bacteria Few /HPF (NONE) Current Medications Medications (Trade) Dose Ordered Sig/Ganesh Route PRN Reason Start Time Stop Time Status Last Admin Dose Admin Allopurinol (Zyloprim) 100 mg DAILY ORAL 07/16/19 09:00 08/15/19 08:59 07/16/19 08:30 Aspirin (Ecotrin) 81 mg DAILY ORAL 07/16/19 09:00 08/15/19 08:59 07/16/19 08:29 Atenolol (Tenormin) 25 mg DAILY ORAL 07/16/19 09:00 08/15/19 08:59 Colchicine (Colchicine) 0.6 mg PRN PRN ORAL gout 07/15/19 22:00 08/14/19 21:29 Docusate Sodium (Colace) 100 mg NEEDED PRN ORAL constipation 07/15/19 21:30 08/14/19 21:29 Docusate Sodium (Colace) 100 mg TWICE A DAY ORAL 07/16/19 09:00 08/15/19 08:59 07/16/19 08:30 Regadenoson (Lexiscan) 0.4 mg ONCE PRN IV stress test 07/16/19 08:00 07/16/19 18:00 Height (Feet): 5 Height (Inches): 7.00 Weight (Pounds): 238 General Appearance: no apparent distress, alert, non-toxic Head: normocephalic, atraumatic Eyes: bilateral anicteric ENT: normal voice Neck: full range of motion, no mass Respiratory: lungs clear Cardiovascular: regular rate, rhythm Gastrointestinal: normal bowel sounds, non tender, soft, no mass, no organomegaly, overweight Musculoskeletal: no calf tenderness Edema: no edema noted Generalized Neurologic: no new focality Cullen Willett MD Jul 16, 2019 11:48
[2019-07-16] MEDS ORDERED: Albuterol/Ipratropium 3ml neb HHN PRN (12:00)
--- NOTE | 2019-07-16 15:43 | Cardiology Report ---
APPROVED REPORT EXAM: Two-dimensional and M-mode echocardiogram with Doppler and color Doppler. INDICATION Shortness of breath M-Mode DIMENSIONS IVSd1.5 (0.7-1.1cm)Left Atrium (MM)3.2 (1.6-4.0cm) LVDd3.5 (3.5-5.6cm)Aortic Root2.8 (2.0-3.7cm) PWd1.0 (0.7-1.1cm)Aortic Cusp Exc.1.6 (1.5-2.0cm) LVDs1.9 (2.5-4.0cm) PWs1.6 cm Technically difficult study due to poor apical windows. Study quality precludes accurate assessment of regional wall motion. Normal left ventricular chamber size, systolic function and wall motion. Left ventricular ejection fraction estimated to be 60 %. Mild left ventricular hypertrophy. No evidence of pericardial effusion. All other cardiac chamber sizes are within normal limits. Focal aortic valve sclerosis with adequate cusp excursion. Thickened mitral valve leaflets with normal excursion. Mitral annulus and aortic root calcification. Pulmonic valve not well visualized. Normal tricuspid valve structure. Subcostal views not obtainable. A color flow and spectral Doppler study was performed and revealed: No aortic regurgitation. Trace mitral regurgitation. Mitral diastolic velocities suggest mild left ventricular diastolic dysfunction (Grade I). Mild tricuspid regurgitation. Tricuspid systolic velocities suggests peak right ventricular systolic pressure of 30 mmHg. No pulmonic regurgitation present.
--- NOTE | 2019-07-16 17:24 | NUR ---
NM Myocardial Perfusion scan complete.
--- NOTE | 2019-07-16 18:02 | Diagnostic Imaging Report ---
Indications: Chest pain, hypertension, shortness of breath Technique: Single day single isotope protocol utilized. Initially, resting images obtained using IV administration 10.7 millicuries 99M technetium Myoview. Subsequently, patient underwent lexiscan stress testing. See cardiology report for details. During Lexiscan infusion, IV administration 31.7 mCi 99 M technetium Myoview. SPECT and planar images obtained. SPECT images gated to 8 phases of the cardiac cycle were also obtained, and reformatted into cine images for evaluation of ejection fraction. Comparison: none Findings: Per cardiology report, patient experienced no chest pain during infusion. Per cardiology report, resting EKG demonstrates normal sinus rhythm. No ST changes noted during infusion. Imaging demonstrates normal poststress perfusion, without evidence of fixed nor reversible poststress perfusion defect. Calculated post stress ejection fraction 77%. No focal wall motion abnormality demonstrated. Impression: Nonischemic clinical response to pharmacologic stress, per cardiology report Nonischemic electrocardiographic response to pharmacologic stress, per cardiology report No imaging findings to suggest ischemia, at level of stress achieved. Calculated post stress ejection fraction greater than 70%
--- NOTE | 2019-07-16 19:11 | Cardiology Progress Note ---
Assessment/Plan Assessment/Plan 1. Exertional shortness of breath. 2. Obesity. 3. Hypertension. No coronary artery calcification. 4. Hyperlipidemia. 5. Gastroesophageal reflux disease. 6. History of atrial fibrillation previously. pro bnp min increased d dimer min increased await pacer interrogation will need to see if adequate rate response on the device mpi neg echo neg venous duplex neg ep top evaluate home soon if pyle is better will decrease bb dose for now Subjective Cardiovascular: Denies: chest pain, lightheadedness, palpitations Respiratory: Reports: SOB with excertion Gastrointestinal/Abdominal: Denies: abdominal pain Genitourinary: Denies: burning Objective Last 24 Hour Vital Signs Date Time Temp Pulse Resp B/P (MAP) Pulse Ox O2 Delivery O2 Flow Rate FiO2 07/16/19 16:00 61 07/16/19 15:11 98.1 67 20 116/62 (80) 97 07/16/19 12:20 76 07/16/19 12:14 97.5 70 20 125/87 (100) 98 07/16/19 09:16 Room Air 07/16/19 08:25 87 130/66 07/16/19 08:00 60 07/16/19 07:48 98.0 87 18 130/66 (87) 99 07/16/19 04:00 97.5 64 18 134/67 (89) 98 07/16/19 04:00 60 07/16/19 00:00 63 07/16/19 00:00 97.7 61 17 131/56 (81) 97 07/15/19 21:00 Room Air 07/15/19 21:00 80 07/15/19 21:00 98.4 69 20 154/94 (114) 95 07/15/19 21:00 Room Air 07/15/19 20:30 98.7 75 18 137/74 99 Room Air 21 07/15/19 20:30 98.7 75 18 137/74 99 Room Air 21 General Appearance: no apparent distress, alert, obese Cardiovascular: normal rate Respiratory/Chest: lungs clear Abdomen: normal bowel sounds, non tender, soft Extremities: no swelling Intake and Output 07/15/19 07/16/19 19:00 07:00 Intake Total 600 ml Balance 600 ml Intake Oral 600 ml # Voids 1 3 Laboratory Tests Test 07/16/19 06:07 White Blood Count 4.4 K/UL (4.8-10.8) L Red Blood Count 3.78 M/UL (4.20-5.40) L Hemoglobin 12.2 G/DL (12.0-16.0) Hematocrit 37.6 % (37.0-47.0) Mean Corpuscular Volume 100 FL (80-99) H Mean Corpuscular Hemoglobin 32.3 PG (27.0-31.0) H Mean Corpuscular Hemoglobin Concent 32.4 G/DL (32.0-36.0) Red Cell Distribution Width 12.1 % (11.6-14.8) Platelet Count 151 K/UL (150-450) Mean Platelet Volume 7.1 FL (6.5-10.1) Neutrophils (%) (Auto) 40.0 % (45.0-75.0) L Lymphocytes (%) (Auto) 48.0 % (20.0-45.0) H Monocytes (%) (Auto) 7.3 % (1.0-10.0) Eosinophils (%) (Auto) 3.7 % (0.0-3.0) H Basophils (%) (Auto) 1.0 % (0.0-2.0) Sodium Level 136 MMOL/L (136-145) Potassium Level 4.2 MMOL/L (3.5-5.1) Chloride Level 101 MMOL/L (98-107) Carbon Dioxide Level 32 MMOL/L (21-32) Anion Gap 3 mmol/L (5-15) L Blood Urea Nitrogen 19 mg/dL (7-18) H Creatinine 1.4 MG/DL (0.55-1.30) H Estimat Glomerular Filtration Rate 45.1 mL/min (>60) Glucose Level 113 MG/DL (74-106) H Calcium Level 8.7 MG/DL (8.5-10.1) Troponin I 0.001 ng/mL (0.000-0.056) Jose F Barrow MD Jul 16, 2019 19:11
--- NOTE | 2019-07-16 19:17 | NUR ---
NURSE NOTES: Report given to ALEXANDRIA Emerson. Patient aox4 wtih calm, cooperative affect. No sign of cardiac or respiratory distress. Ate 100% of dinner. Breathing easily on RA. Bed in lowest, locked position and call thorne and commode in reach.
--- NOTE | 2019-07-16 19:25 | NUR ---
NURSE NOTES: Received report from Stuart Noriega RN. Patient AAO X4 in bed with no S/S of acute pain or discomfort at this time. Kept clean, dry, and comfortable in bed. IV line established and placed on continuous cardiac monitoring per protocol. Ambulates with minimal assistance to the bedside commode. Safety precaution in place; siderails X3 up, call light within reach, bed in lowest position, brakes and alarm on at all times. Needs and wants anticipated and attended, will continue plan of care and monitor for any changes noted. Possible VQ scan on Friday
[2019-07-16] MEDS: Atorvastatin 20mg tab ORAL SCH (20:48)
[2019-07-17 04:00] VITALS: BP 123/70
[2019-07-17 06:15] LABS: BASOPHILS % (AUTO) 0.9 % (0.0-2.0); HEMATOCRIT 37.6 % (37.0-47.0); HEMOGLOBIN 12.3 G/DL (12.0-16.0); LYMPHOCYTES % (AUTO) 43.8 % (20.0-45.0); MEAN CORPUSCULAR VOLUME 100 FL (80-99); MONOCYTES % (AUTO) 9.2 % (1.0-10.0); NEUTROPHILS % (AUTO) 43.2 % (45.0-75.0); PLATELET COUNT 170 K/UL (150-450); RED BLOOD COUNT 3.75 M/UL (4.20-5.40); RED CELL DISTRIBUTION WIDTH 12.2 % (11.6-14.8); WHITE BLOOD COUNT 4.7 K/UL (4.8-10.8)
[2019-07-17 06:41] LABS: ANION GAP 6 mmol/L (5-15); BLOOD UREA NITROGEN 18 mg/dL (7-18); CALCIUM 8.8 MG/DL (8.5-10.1); CARBON DIOXIDE 31 MMOL/L (21-32); CHLORIDE 105 MMOL/L (98-107); CREATININE 1.4 MG/DL (0.55-1.30); POTASSIUM 4.3 MMOL/L (3.5-5.1); SODIUM 142 MMOL/L (136-145)
--- NOTE | 2019-07-17 07:30 | NUR ---
NURSE NOTES: I received the patient awake and resting in bed. Patient alert and oriented x4 and able to make needs known. Bed in the lowest position and call light within reach. I will continue to monitor the patient and implement care.
--- NOTE | 2019-07-17 07:43 | NUR ---
HAND-OFF: Report given to Yee Taylor Endorsed plan of care. Patient in stable condition.
[2019-07-17 08:00] VITALS: BP 134/64
[2019-07-17] MEDS: Docusate 100mg cap ORAL SCH ×2 (09:14→17:07)
[2019-07-17] MEDS: Aspirin EC 81mg tab ORAL SCH (09:14)
[2019-07-17] MEDS: Atenolol 25mg tab ORAL SCH (09:14)
[2019-07-17] MEDS: Allopurinol 100mg Tab ORAL SCH (09:14)
[2019-07-17 12:00] VITALS: BP 131/61
--- NOTE | 2019-07-17 14:52 | Cardiology Report ---
APPROVED REPORT EKG Measurement Heart [id number] Abnormal ECG Atrial Pacemaker
--- NOTE | 2019-07-17 14:58 | Cardiology Report ---
APPROVED REPORT EKG Measurement Heart [id number] Abnormal ECG Atrial Pacemaker
--- NOTE | 2019-07-17 15:14 | Pulmonology Progress Note ---
Assessment/Plan Assessment/Plan Pulmonary Progress Note HPI Patient is a 68-year-old female admitted complaining of shortness of breath, associated with excercise. Denies chest pain. S/p Pacemaker insertion, has history of Paroxysmal Atrial Fibrillation, Coronary Artery Calcification. She denies any current shortness of breath. She denies fever or cough. She denies any leg swelling. She denies any chest pain currently. No history of Asthma, currently receiving PRN HHN. Has history of previous dizziness, headaches, no new complaints Noted to have mild elevation in BNP Allergies: NO KNOWN DRUG ALLERGIES Past Medical History: S/p Pacemaker insertion, Paroxysmal Atrial Fibrillation, Hypertension, Obesity, Obstructive Sleep Apnea, Coronary Artery Calcification, Hyperthyroidism, Gout Reviewed Nursing Documentation: PMH: Agreed; PSxH: Agreed Physical Exam Vital Signs Noted General: WDWN, no distress, BMI 37.3 HEENT: NCAT, moist mm Chest: CTAB Heart: HS1, HS2, RRR Abdomen: SNTND Extremities: Well perfused, no edema TRAFFIC CHECKER: Intact Impression: Shortness of breath Elevated NPA level S/p Pacemaker insertion Paroxysmal Atrial Fibrillation Hypertension MALINDA Coronary Artery Calcification Hyperthyroidism Gout Obesity Plan: Continue O2 PRN HHN PRN BiPAP QHS LE dupplex/VQ scan Await cardiac work up Monitor labs PPX [employer] medications Will need out patient Pulmonary Function Testing. Labs Test 07/15/19 15:55 07/15/19 16:35 White Blood Count 4.6 K/UL (4.8-10.8) Red Blood Count 3.93 M/UL (4.20-5.40) Hemoglobin 12.9 G/DL (12.0-16.0) Hematocrit 37.2 % (37.0-47.0) Mean Corpuscular Volume 95 FL (80-99) Mean Corpuscular Hemoglobin 32.7 PG (27.0-31.0) Mean Corpuscular Hemoglobin Concent 34.6 G/DL (32.0-36.0) Red Cell Distribution Width 10.8 % (11.6-14.8) Platelet Count 162 K/UL (150-450) Mean Platelet Volume 6.7 FL (6.5-10.1) Neutrophils (%) (Auto) 49.6 % (45.0-75.0) Lymphocytes (%) (Auto) 38.0 % (20.0-45.0) Monocytes (%) (Auto) 8.2 % (1.0-10.0) Eosinophils (%) (Auto) 2.5 % (0.0-3.0) Basophils (%) (Auto) 1.8 % (0.0-2.0) Prothrombin Time 10.5 SEC (9.30-11.50) Prothromb Time International Ratio 1.0 (0.9-1.1) Activated Partial Thromboplast Time 26 SEC (23-33) Sodium Level 138 MMOL/L (136-145) Potassium Level 4.0 MMOL/L (3.5-5.1) Chloride Level 100 MMOL/L (98-107) Carbon Dioxide Level 36 MMOL/L (21-32) Anion Gap 2 mmol/L (5-15) Blood Urea Nitrogen 18 mg/dL (7-18) Creatinine 1.6 MG/DL (0.55-1.30) Estimat Glomerular Filtration Rate 38.5 mL/min (>60) Glucose Level 111 MG/DL (74-106) Calcium Level 8.9 MG/DL (8.5-10.1) Total Bilirubin 0.4 MG/DL (0.2-1.0) Aspartate Amino Transf (AST/SGOT) 20 U/L (15-37) Alanine Aminotransferase (ALT/SGPT) 17 U/L (12-78) Alkaline Phosphatase 64 U/L (46-116) Troponin I 0.000 ng/mL (0.000-0.056) Pro-B-Type Natriuretic Peptide 128 pg/mL (0-125) Total Protein 7.2 G/DL (6.4-8.2) Albumin 3.5 G/DL (3.4-5.0) Globulin 3.7 g/dL Albumin/Globulin Ratio 0.9 (1.0-2.7) Thyroid Stimulating Hormone (TSH) 2.707 uiU/mL (0.358-3.740) EKG: Rate: other - paced rhythm Rhythm: NSR ST Segments: no acute changes CXR: No acute disease LE Dupplex: Negative for DVT Echocardiogram: Normal left ventricular chamber size, systolic function and wall motion. Left ventricular ejection fraction estimated to be 60 %. Mild left ventricular hypertrophy. No evidence of pericardial effusion. All other cardiac chamber sizes are within normal limits. Focal aortic valve sclerosis with adequate cusp excursion. Thickened mitral valve leaflets with normal excursion. Mitral annulus and aortic root calcification. Pulmonic valve not well visualized. Normal tricuspid valve structure. Subcostal views not obtainable. A color flow and spectral Doppler study was performed and revealed: No aortic regurgitation. Trace mitral regurgitation. Mitral diastolic velocities suggest mild left ventricular diastolic dysfunction (Grade I). Mild tricuspid regurgitation. Tricuspid systolic velocities suggests peak right ventricular systolic pressure of 30 mmHg. No pulmonic regurgitation present Subjective ROS Limited/Unobtainable: No Allergies: Coded Allergies: NO KNOWN DRUG ALLERGIES (Unverified Allergy, Unknown, 02/10/18) Objective Last 24 Hour Vital Signs Date Time Temp Pulse Resp B/P (MAP) Pulse Ox O2 Delivery O2 Flow Rate FiO2 07/17/19 11:34 60 07/17/19 09:14 66 134/64 07/17/19 09:00 Room Air 07/17/19 08:00 98.0 66 18 134/64 (87) 98 07/17/19 07:34 62 07/17/19 04:00 62 07/17/19 04:00 98.1 60 18 123/70 (87) 97 07/17/19 00:00 60 07/16/19 23:59 98.2 60 18 124/64 (84) 97 07/16/19 21:00 Room Air 07/16/19 20:00 60 07/16/19 20:00 98.7 67 16 121/50 (73) 97 07/16/19 16:00 61 Intake and Output 07/16/19 07/17/19 19:00 07:00 Intake Total 500 ml Balance 500 ml Intake Oral 500 ml # Voids 4 5 Laboratory Tests 07/17/19 05:40: White Blood Count 4.7L, Red Blood Count 3.75L, Hemoglobin 12.3, Hematocrit 37.6 , Mean Corpuscular Volume 100H, Mean Corpuscular Hemoglobin 32.7H, Mean Corpuscular Hemoglobin Concent 32.7, Red Cell Distribution Width 12.2, Platelet Count 170, Mean Platelet Volume 7.7, Neutrophils (%) (Auto) 43.2L, Lymphocytes ( %) (Auto) 43.8, Monocytes (%) (Auto) 9.2, Eosinophils (%) (Auto) 3.0, Basophils (%) (Auto) 0.9, Erythrocyte Sedimentation Rate 24, Sodium Level 142, Potassium Level 4.3, Chloride Level 105, Carbon Dioxide Level 31, Anion Gap 6, Blood Urea Nitrogen 18, Creatinine 1.4H, Estimat Glomerular Filtration Rate 45.1, Glucose Level 118H, Calcium Level 8.8 Current Medications Medications (Trade) Dose Ordered Sig/Ganesh Route PRN Reason Start Time Stop Time Status Last Admin Dose Admin Albuterol/ Ipratropium (Albuterol/ Ipratropium) 3 ml Q4H PRN HHN Shortness of Breath 07/16/19 12:00 07/21/19 11:59 Allopurinol (Zyloprim) 100 mg DAILY ORAL 07/16/19 09:00 08/15/19 08:59 07/17/19 09:14 Aspirin (Ecotrin) 81 mg DAILY ORAL 07/16/19 09:00 08/15/19 08:59 07/17/19 09:14 Atenolol (Tenormin) 12.5 mg DAILY ORAL 07/17/19 09:00 08/16/19 08:59 07/17/19 09:14 Atorvastatin Calcium (Lipitor) 20 mg BEDTIME ORAL 07/16/19 21:00 08/15/19 20:59 07/16/19 20:48 Colchicine (Colchicine) 0.6 mg PRN PRN ORAL gout 07/15/19 22:00 08/14/19 21:29 Docusate Sodium (Colace) 100 mg NEEDED PRN ORAL constipation 07/15/19 21:30 08/14/19 21:29 Docusate Sodium (Colace) 100 mg TWICE A DAY ORAL 07/16/19 09:00 08/15/19 08:59 07/17/19 09:14 Pantoprazole (Protonix) 40 mg DAILY ORAL 07/17/19 09:00 08/16/19 08:59 07/17/19 09:14 Herb Boss MD Jul 17, 2019 15:14
--- NOTE | 2019-07-17 15:15 | Cardiology Progress Note ---
Assessment/Plan Problem List: (1) Pacemaker (2) Sick sinus syndrome (3) Dyspnea on minimal exertion (4) Obesity Status: stable, unchanged Status Narrative Mrs Fagan continues to c/o exertional dyspnea. Also has intermittent L upper back pain. Stress nuclear study negative Pacemaker checked today - normal pacing/ sensing ( sensing 1.9 mv atr 11 mv ventr, pacing 0.5 v atr 1.375 v ventr at 0.4 ms, impedances 532 ohm atr 475 ohm ventr) There is predominantly lower rate pacing at 60 bpm Assessment/Plan Pacemaker rate response increased , in case exertional dyspnea due to low HR response w/ activity. Agree w/ v/q scan to r/o pulm embolus as cause of dyspnea. Subjective ROS Limited/Unobtainable: No Subjective Cardiology for Dr. Barrow Pt c/o exertional dyspnea, and intermittent back pain Objective Last 24 Hour Vital Signs Date Time Temp Pulse Resp B/P (MAP) Pulse Ox O2 Delivery O2 Flow Rate FiO2 07/17/19 11:34 60 07/17/19 09:14 66 134/64 07/17/19 09:00 Room Air 07/17/19 08:00 98.0 66 18 134/64 (87) 98 07/17/19 07:34 62 07/17/19 04:00 62 07/17/19 04:00 98.1 60 18 123/70 (87) 97 07/17/19 00:00 60 07/16/19 23:59 98.2 60 18 124/64 (84) 97 07/16/19 21:00 Room Air 07/16/19 20:00 60 07/16/19 20:00 98.7 67 16 121/50 (73) 97 07/16/19 16:00 61 07/16/19 15:11 98.1 67 20 116/62 (80) 97 General Appearance: WD/WN, alert, obese EENT: PERRL/EOMI Neck: supple, normal inspection Rhythm: NSR Cardiovascular: normal rate, regular rhythm, no gallop/murmur Respiratory/Chest: lungs clear Abdomen: non tender, soft Extremities: no swelling Intake and Output 07/16/19 07/17/19 19:00 07:00 Intake Total 500 ml Balance 500 ml Intake Oral 500 ml # Voids 4 5 Laboratory Tests Test 11/16/19 05:40 White Blood Count 4.7 K/UL (4.8-10.8) L Red Blood Count 3.75 M/UL (4.20-5.40) L Hemoglobin 12.3 G/DL (12.0-16.0) Hematocrit 37.6 % (37.0-47.0) Mean Corpuscular Volume 100 FL (80-99) H Mean Corpuscular Hemoglobin 32.7 PG (27.0-31.0) H Mean Corpuscular Hemoglobin Concent 32.7 G/DL (32.0-36.0) Red Cell Distribution Width 12.2 % (11.6-14.8) Platelet Count 170 K/UL (150-450) Mean Platelet Volume 7.7 FL (6.5-10.1) Neutrophils (%) (Auto) 43.2 % (45.0-75.0) L Lymphocytes (%) (Auto) 43.8 % (20.0-45.0) Monocytes (%) (Auto) 9.2 % (1.0-10.0) Eosinophils (%) (Auto) 3.0 % (0.0-3.0) Basophils (%) (Auto) 0.9 % (0.0-2.0) Erythrocyte Sedimentation Rate 24 MM/HR (0-30) Sodium Level 142 MMOL/L (136-145) Potassium Level 4.3 MMOL/L (3.5-5.1) Chloride Level 105 MMOL/L (98-107) Carbon Dioxide Level 31 MMOL/L (21-32) Anion Gap 6 mmol/L (5-15) Blood Urea Nitrogen 18 mg/dL (7-18) Creatinine 1.4 MG/DL (0.55-1.30) H Estimat Glomerular Filtration Rate 45.1 mL/min (>60) Glucose Level 118 MG/DL (74-106) H Calcium Level 8.8 MG/DL (8.5-10.1) eMlania Ivy MD Jul 17, 2019 15:15
[2019-07-17 16:00] VITALS: BP 129/67
--- NOTE | 2019-07-17 19:02 | NUR ---
HAND-OFF: Report given to Yee Narayan RN.
[2019-07-17 20:00] VITALS: BP 113/50
[2019-07-17] MEDS: Atorvastatin 20mg tab ORAL SCH (20:19)
--- NOTE | 2019-07-17 21:04 | Geriatric Progress Note ---
Assessment/Plan Problems: (1) Dyspnea on minimal exertion (2) Obesity (3) Hypertension (4) Dyslipidemia (5) Obstructive sleep apnea (6) GERD (gastroesophageal reflux disease) (7) Atrial fibrillation (8) Headache Assessment/Plan Etiology for exertional dyspnea remains unclear. Evaluation in progress. Use BiPAP if tolerable. Mobilize as tolerated. Recheck urinalysis for persistent hematuria. Continue other tx. Discussed with: patient, hospital staff Subjective Interval Events Patient alert. Reports feeling OK, but earlier when walking into [place], became dizzy, dyspneic. Atenolol decreased per Dr. Barrow. Pacer rate increased per Dr. Ivy. Did not use BiPAP last p.m. Staff reports order in place. Eating well. No other sxs. Lexiscan negative for ischemia. V/Q pending. Constitutional: Denies: chills, pain, fever Respiratory: Denies: cough Cardiovascular: Denies: chest pain, palpitations Gastrointestinal/Abdominal: Denies: abdominal pain Genitourinary: Denies: dysuria Geriatric Geriatric Last 24 Hour Vital Signs Date Time Temp Pulse Resp B/P (MAP) Pulse Ox O2 Delivery O2 Flow Rate FiO2 07/17/19 16:00 98.5 63 18 129/67 (87) 97 07/17/19 15:08 60 07/17/19 12:00 98.2 69 17 131/61 (84) 98 07/17/19 11:34 60 07/17/19 09:14 66 134/64 07/17/19 09:00 Room Air 07/17/19 08:00 98.0 66 18 134/64 (87) 98 07/17/19 07:34 62 07/17/19 04:00 62 07/17/19 04:00 98.1 60 18 123/70 (87) 97 07/17/19 00:00 60 07/16/19 23:59 98.2 60 18 124/64 (84) 97 07/16/19 21:00 Room Air Intake and Output 07/16/19 07/17/19 19:00 07:00 Intake Total 500 ml Balance 500 ml Intake Oral 500 ml # Voids 4 5 Laboratory Tests Test 07/17/19 05:40 White Blood Count 4.7 K/UL (4.8-10.8) L Red Blood Count 3.75 M/UL (4.20-5.40) L Hemoglobin 12.3 G/DL (12.0-16.0) Hematocrit 37.6 % (37.0-47.0) Mean Corpuscular Volume 100 FL (80-99) H Mean Corpuscular Hemoglobin 32.7 PG (27.0-31.0) H Mean Corpuscular Hemoglobin Concent 32.7 G/DL (32.0-36.0) Red Cell Distribution Width 12.2 % (11.6-14.8) Platelet Count 170 K/UL (150-450) Mean Platelet Volume 7.7 FL (6.5-10.1) Neutrophils (%) (Auto) 43.2 % (45.0-75.0) L Lymphocytes (%) (Auto) 43.8 % (20.0-45.0) Monocytes (%) (Auto) 9.2 % (1.0-10.0) Eosinophils (%) (Auto) 3.0 % (0.0-3.0) Basophils (%) (Auto) 0.9 % (0.0-2.0) Erythrocyte Sedimentation Rate 24 MM/HR (0-30) Sodium Level 142 MMOL/L (136-145) Potassium Level 4.3 MMOL/L (3.5-5.1) Chloride Level 105 MMOL/L (98-107) Carbon Dioxide Level 31 MMOL/L (21-32) Anion Gap 6 mmol/L (5-15) Blood Urea Nitrogen 18 mg/dL (7-18) Creatinine 1.4 MG/DL (0.55-1.30) H Estimat Glomerular Filtration Rate 45.1 mL/min (>60) Glucose Level 118 MG/DL (74-106) H Calcium Level 8.8 MG/DL (8.5-10.1) Current Medications Medications (Trade) Dose Ordered Sig/Ganesh Route PRN Reason Start Time Stop Time Status Last Admin Dose Admin Albuterol/ Ipratropium (Albuterol/ Ipratropium) 3 ml Q4H PRN HHN Shortness of Breath 07/16/19 12:00 07/21/19 11:59 Allopurinol (Zyloprim) 100 mg DAILY ORAL 07/16/19 09:00 08/15/19 08:59 07/17/19 09:14 Aspirin (Ecotrin) 81 mg DAILY ORAL 07/16/19 09:00 08/15/19 08:59 07/17/19 09:14 Atenolol (Tenormin) 12.5 mg DAILY ORAL 07/17/19 09:00 08/16/19 08:59 07/17/19 09:14 Atorvastatin Calcium (Lipitor) 20 mg BEDTIME ORAL 07/16/19 21:00 08/15/19 20:59 07/17/19 20:19 Colchicine (Colchicine) 0.6 mg PRN PRN ORAL gout 07/15/19 22:00 08/14/19 21:29 Docusate Sodium (Colace) 100 mg NEEDED PRN ORAL constipation 07/15/19 21:30 08/14/19 21:29 Docusate Sodium (Colace) 100 mg TWICE A DAY ORAL 07/16/19 09:00 08/15/19 08:59 07/17/19 17:07 Pantoprazole (Protonix) 40 mg DAILY ORAL 07/17/19 09:00 08/16/19 08:59 07/17/19 09:14 Height (Feet): 5 Height (Inches): 7.00 Weight (Pounds): 238 General Appearance: no apparent distress, alert, non-toxic Head: normocephalic, atraumatic Eyes: bilateral anicteric ENT: normal voice Neck: full range of motion, no mass Respiratory: lungs clear Cardiovascular: regular rate, rhythm Gastrointestinal: normal bowel sounds, non tender, soft, no mass, no organomegaly, non-distended Musculoskeletal: no calf tenderness Edema: no edema noted Generalized Neurologic: no new focality Cullen Willett MD Jul 17, 2019 21:04
[2019-07-17 21:55] LABS: APPEARANCE,URINE CLEAR; BILIRUBIN, URINE NEGATIVE (NEGATIVE); COLOR,URINE PALE YELLOW; GLUCOSE, URINE (UA) NEGATIVE (NEGATIVE); KETONES,URINE NEGATIVE (NEGATIVE); LEUKOCYTE ESTERASE ,URINE NEGATIVE (NEGATIVE); NITRITE,URINE NEGATIVE (NEGATIVE); PH,URINE 6 (4.5-8.0); PROTEIN,URINE NEGATIVE (NEGATIVE); UROBILINOGEN,URINE NORMAL MG/DL (0.0-1.0)
--- NOTE | 2019-07-17 22:41 | NUR ---
NURSE NOTES: Offered patient to be put on BIPAP machine HS PRN per MD. Patient refuses, states that "i slept good without it and i haven't been using mine at home for almost a year". MD aware. Will continue to monitor.
[2019-07-18] VITALS: BP 106/59
[2019-07-18 04:00] VITALS: BP 122/62
--- NOTE | 2019-07-18 06:54 | NUR ---
HAND-OFF: Report given to Yee Taylor RN. Patient in bed with no S/S of distress. Endorsed plan of care.
--- NOTE | 2019-07-18 07:10 | NUR ---
NURSE NOTES: I received the patient awake and resting in bed. Patient alert and oriented x4. Bed in the lowest position and call light within reach. Patient does not display any signs of distress or SOB.
[2019-07-18 08:00] VITALS: BP 138/73
[2019-07-18] MEDS: Docusate 100mg cap ORAL SCH ×2 (08:14→17:29)
[2019-07-18] MEDS: Atenolol 25mg tab ORAL SCH (08:14)
[2019-07-18] MEDS: Aspirin EC 81mg tab ORAL SCH (08:14)
[2019-07-18] MEDS: Allopurinol 100mg Tab ORAL SCH (08:14)
--- NOTE | 2019-07-18 10:30 | NUR ---
PT Note Attempted to see patient for eval/tx but patient states she feels sleepy at this time and does not want to get OOB. Will try again later if time permits.
[2019-07-18 12:00] VITALS: BP 127/72
--- NOTE | 2019-07-18 14:13 | Geriatric Progress Note ---
Assessment/Plan Problems: (1) Dyspnea on minimal exertion (2) Obesity (3) Hypertension (4) Dyslipidemia (5) Obstructive sleep apnea (6) GERD (gastroesophageal reflux disease) (7) Atrial fibrillation (8) Headache Assessment/Plan Still no clear etiology for marked dyspnea on exertion. V/Q pending. Discussed use of BiPAP, possible contributions to pulmonary hypertension. Encouraged trial. Patient agreeable. Mobilize as tolerated. Continue other medications. Discussed with: patient, hospital staff Subjective Interval Events Patient dozing in bed. Easily arousable. Denies discomfort at rest. Reports LOW with limited exertion. No pain, palpitations, pressure. Good p.o. intake. Did not use BiPAP prior evening. Pacer response calibrated upward. All studies unremarkable otherwise to date. Repeat urinalysis does not show hematuria. Constitutional: Denies: chills, pain, sweats, fever Respiratory: Denies: cough, wheezing Cardiovascular: Denies: chest pain, palpitations Gastrointestinal/Abdominal: Denies: abdominal pain, nausea Genitourinary: Denies: dysuria Geriatric Geriatric Last 24 Hour Vital Signs Date Time Temp Pulse Resp B/P (MAP) Pulse Ox O2 Delivery O2 Flow Rate FiO2 07/18/19 12:00 97.8 87 18 127/72 (90) 96 07/18/19 11:56 60 07/18/19 08:14 67 138/73 07/18/19 08:06 67 18 97 Room Air 21 07/18/19 08:00 98.1 76 18 138/73 (94) 95 07/18/19 07:56 65 07/18/19 07:41 Room Air 07/18/19 04:00 98.1 62 18 122/62 (82) 96 07/18/19 04:00 60 07/18/19 00:00 98.2 63 18 106/59 (75) 97 07/18/19 00:00 60 07/17/19 21:00 Room Air 07/17/19 20:00 61 07/17/19 20:00 98.3 63 18 113/50 (71) 98 07/17/19 19:45 78 18 97 Room Air 21 07/17/19 16:00 98.5 63 18 129/67 (87) 97 07/17/19 15:08 60 Intake and Output 07/17/19 07/18/19 18:59 06:59 Intake Total 1600 ml 400 ml Balance 1600 ml 400 ml Intake Oral 400 ml Other 1600 ml # Voids 3 Laboratory Tests Test 07/17/19 21:40 Urine Color Pale yellow Urine Appearance Clear Urine pH 6 (4.5-8.0) Urine Specific [place] 1.020 (1.005-1.035) Urine Protein Negative (NEGATIVE) Urine Glucose (UA) Negative (NEGATIVE) Urine Ketones Negative (NEGATIVE) Urine Blood 1+ (NEGATIVE) H Urine Nitrite Negative (NEGATIVE) Urine Bilirubin Negative (NEGATIVE) Urine Urobilinogen Normal MG/DL (0.0-1.0) Urine Leukocyte Esterase Negative (NEGATIVE) Urine RBC 0-2 /HPF (0 - 2) Urine WBC 0-2 /HPF (0 - 2) Urine Squamous Epithelial Cells Moderate /LPF (NONE/OCC) H Urine Bacteria Occasional /HPF (NONE) Current Medications Medications (Trade) Dose Ordered Sig/Ganesh Route PRN Reason Start Time Stop Time Status Last Admin Dose Admin Albuterol/ Ipratropium (Albuterol/ Ipratropium) 3 ml Q4H PRN HHN Shortness of Breath 07/16/19 12:00 07/21/19 11:59 Allopurinol (Zyloprim) 100 mg DAILY ORAL 07/16/19 09:00 08/15/19 08:59 07/18/19 08:14 Aspirin (Ecotrin) 81 mg DAILY ORAL 07/16/19 09:00 08/15/19 08:59 07/18/19 08:14 Atenolol (Tenormin) 12.5 mg DAILY ORAL 07/17/19 09:00 08/16/19 08:59 07/18/19 08:14 Atorvastatin Calcium (Lipitor) 20 mg BEDTIME ORAL 07/16/19 21:00 08/15/19 20:59 07/17/19 20:19 Colchicine (Colchicine) 0.6 mg PRN PRN ORAL gout 07/15/19 22:00 08/14/19 21:29 Docusate Sodium (Colace) 100 mg NEEDED PRN ORAL constipation 07/15/19 21:30 08/14/19 21:29 Docusate Sodium (Colace) 100 mg TWICE A DAY ORAL 07/16/19 09:00 08/15/19 08:59 07/18/19 08:14 Pantoprazole (Protonix) 40 mg DAILY ORAL 07/17/19 09:00 08/16/19 08:59 07/18/19 08:14 Height (Feet): 5 Height (Inches): 7.00 Weight (Pounds): 238 General Appearance: no apparent distress, alert, non-toxic Head: normocephalic, atraumatic Eyes: bilateral anicteric ENT: normal voice Neck: full range of motion, no mass Respiratory: lungs clear, decreased breath sounds Cardiovascular: regular rate, rhythm Gastrointestinal: normal bowel sounds, non tender, soft, no mass, no organomegaly Musculoskeletal: no calf tenderness Edema: no edema noted Generalized Neurologic: no new focality Cullen Willett MD Jul 18, 2019 14:13
--- NOTE | 2019-07-18 15:09 | Cardiology Progress Note ---
Assessment/Plan Problem List: (1) Pacemaker (2) Sick sinus syndrome (3) Dyspnea on minimal exertion (4) Obesity Status: stable, unchanged Status Narrative Mrs Fagan continues to c/o exertional dyspnea. Pacemaker checked on 07/17- normal pacing/ sensing ( sensing 1.9 mv atr 11 mv ventr, pacing 0.5 v atr 1.375 v ventr at 0.4 ms, impedances 532 ohm atr 475 ohm ventr) There is predominantly lower rate pacing at 60 bpm Additional studies done this adm- negative LE duplex, negative stress MPI for ischemia, ECHO w/ normal LV function Assessment/Plan Pacemaker rate response increased (response factor from 3 to 4) in case exertional dyspnea due to low HR response w/ activity. v/q scan to be done tomorrow. Subjective ROS Limited/Unobtainable: No Subjective Cardiology for Dr. Barrow Pt c/o exertional dyspnea. She also has intermittent L upper back pain. She ambulated in [place] w/ PT today Objective Last 24 Hour Vital Signs Date Time Temp Pulse Resp B/P (MAP) Pulse Ox O2 Delivery O2 Flow Rate FiO2 07/18/19 12:00 97.8 87 18 127/72 (90) 96 07/18/19 11:56 60 07/18/19 08:14 67 138/73 07/18/19 08:06 67 18 97 Room Air 21 07/18/19 08:00 98.1 76 18 138/73 (94) 95 07/18/19 07:56 65 07/18/19 07:41 Room Air 07/18/19 04:00 98.1 62 18 122/62 (82) 96 07/18/19 04:00 60 07/18/19 00:00 98.2 63 18 106/59 (75) 97 07/18/19 00:00 60 07/17/19 21:00 Room Air 07/17/19 20:00 61 07/17/19 20:00 98.3 63 18 113/50 (71) 98 07/17/19 19:45 78 18 97 Room Air 21 07/17/19 16:00 98.5 63 18 129/67 (87) 97 07/17/19 15:08 60 General Appearance: WD/WN, no apparent distress, alert Neck: supple, no JVD Cardiovascular: normal rate, regular rhythm Abdomen: non tender, soft Extremities: no swelling Intake and Output 07/17/19 07/18/19 18:59 06:59 Intake Total 1600 ml 400 ml Balance 1600 ml 400 ml Intake Oral 400 ml Other 1600 ml # Voids 3 Laboratory Tests Test 07/17/19 21:40 Urine Color Pale yellow Urine Appearance Clear Urine pH 6 (4.5-8.0) Urine Specific [place] 1.020 (1.005-1.035) Urine Protein Negative (NEGATIVE) Urine Glucose (UA) Negative (NEGATIVE) Urine Ketones Negative (NEGATIVE) Urine Blood 1+ (NEGATIVE) H Urine Nitrite Negative (NEGATIVE) Urine Bilirubin Negative (NEGATIVE) Urine Urobilinogen Normal MG/DL (0.0-1.0) Urine Leukocyte Esterase Negative (NEGATIVE) Urine RBC 0-2 /HPF (0 - 2) Urine WBC 0-2 /HPF (0 - 2) Urine Squamous Epithelial Cells Moderate /LPF (NONE/OCC) H Urine Bacteria Occasional /HPF (NONE) Melania Ivy MD Jul 18, 2019 15:09
--- NOTE | 2019-07-18 15:38 | NUR ---
PT Note PT christiano completed, treatment initiated. Patient has muscle weakness and decreased postural stability, and c/o SOB on minimal exertion, making her at a risk for falls. Patient needs PT to increase her muscle strength and balance to improve her safety in mobility and gait. Addendum: 07/18/19 at 1540 by [facility] PT Amended: Links added.
[2019-07-18 16:00] VITALS: BP 135/79
--- NOTE | 2019-07-18 16:08 | Pulmonology Progress Note ---
Assessment/Plan Assessment/Plan Pulmonary Progress Note HPI Patient is a 68-year-old female admitted complaining of shortness of breath, associated with excercise. Denies chest pain. S/p Pacemaker insertion, has history of Paroxysmal Atrial Fibrillation, Coronary Artery Calcification. She denies any current shortness of breath. She denies fever or cough. She denies any leg swelling. She denies any chest pain currently. No history of Asthma, currently receiving PRN HHN. Has history of previous dizziness, headaches, no new complaints Noted to have mild elevation in BNP VQ scan pending Allergies: NO KNOWN DRUG ALLERGIES Past Medical History: S/p Pacemaker insertion, Paroxysmal Atrial Fibrillation, Hypertension, Obesity, Obstructive Sleep Apnea, Coronary Artery Calcification, Hyperthyroidism, Gout Reviewed Nursing Documentation: PMH: Agreed; PSxH: Agreed Physical Exam Vital Signs Noted General: WDWN, no distress, BMI 37.3 HEENT: NCAT, moist mm Chest: CTAB Heart: HS1, HS2, RRR Abdomen: SNTND Extremities: Well perfused, no edema TELEVISION MECHANIC: Intact Impression: Shortness of breath Elevated NPA level S/p Pacemaker insertion Paroxysmal Atrial Fibrillation Hypertension MALINDA Coronary Artery Calcification Hyperthyroidism Gout Obesity Plan: Continue O2 PRN HHN PRN BiPAP QHS LE dupplex negative/VQ scan pending Await cardiac work up Monitor labs PPX PV INSTALLER TECH medications Will need out patient Pulmonary Function Testing. Labs noted Test 07/15/19 15:55 07/15/19 16:35 White Blood Count 4.6 K/UL (4.8-10.8) Red Blood Count 3.93 M/UL (4.20-5.40) Hemoglobin 12.9 G/DL (12.0-16.0) Hematocrit 37.2 % (37.0-47.0) Mean Corpuscular Volume 95 FL (80-99) Mean Corpuscular Hemoglobin 32.7 PG (27.0-31.0) Mean Corpuscular Hemoglobin Concent 34.6 G/DL (32.0-36.0) Red Cell Distribution Width 10.8 % (11.6-14.8) Platelet Count 162 K/UL (150-450) Mean Platelet Volume 6.7 FL (6.5-10.1) Neutrophils (%) (Auto) 49.6 % (45.0-75.0) Lymphocytes (%) (Auto) 38.0 % (20.0-45.0) Monocytes (%) (Auto) 8.2 % (1.0-10.0) Eosinophils (%) (Auto) 2.5 % (0.0-3.0) Basophils (%) (Auto) 1.8 % (0.0-2.0) Prothrombin Time 10.5 SEC (9.30-11.50) Prothromb Time International Ratio 1.0 (0.9-1.1) Activated Partial Thromboplast Time 26 SEC (23-33) Sodium Level 138 MMOL/L (136-145) Potassium Level 4.0 MMOL/L (3.5-5.1) Chloride Level 100 MMOL/L (98-107) Carbon Dioxide Level 36 MMOL/L (21-32) Anion Gap 2 mmol/L (5-15) Blood Urea Nitrogen 18 mg/dL (7-18) Creatinine 1.6 MG/DL (0.55-1.30) Estimat Glomerular Filtration Rate 38.5 mL/min (>60) Glucose Level 111 MG/DL (74-106) Calcium Level 8.9 MG/DL (8.5-10.1) Total Bilirubin 0.4 MG/DL (0.2-1.0) Aspartate Amino Transf (AST/SGOT) 20 U/L (15-37) Alanine Aminotransferase (ALT/SGPT) 17 U/L (12-78) Alkaline Phosphatase 64 U/L (46-116) Troponin I 0.000 ng/mL (0.000-0.056) Pro-B-Type Natriuretic Peptide 128 pg/mL (0-125) Total Protein 7.2 G/DL (6.4-8.2) Albumin 3.5 G/DL (3.4-5.0) Globulin 3.7 g/dL Albumin/Globulin Ratio 0.9 (1.0-2.7) Thyroid Stimulating Hormone (TSH) 2.707 uiU/mL (0.358-3.740) EKG: Rate: other - paced rhythm Rhythm: NSR ST Segments: no acute changes CXR: No acute disease LE Dupplex: Negative for DVT Echocardiogram: Normal left ventricular chamber size, systolic function and wall motion. Left ventricular ejection fraction estimated to be 60 %. Mild left ventricular hypertrophy. No evidence of pericardial effusion. All other cardiac chamber sizes are within normal limits. Focal aortic valve sclerosis with adequate cusp excursion. Thickened mitral valve leaflets with normal excursion. Mitral annulus and aortic root calcification. Pulmonic valve not well visualized. Normal tricuspid valve structure. Subcostal views not obtainable. A color flow and spectral Doppler study was performed and revealed: No aortic regurgitation. Trace mitral regurgitation. Mitral diastolic velocities suggest mild left ventricular diastolic dysfunction (Grade I). Mild tricuspid regurgitation. Tricuspid systolic velocities suggests peak right ventricular systolic pressure of 30 mmHg. No pulmonic regurgitation present Subjective ROS Limited/Unobtainable: No Allergies: Coded Allergies: NO KNOWN DRUG ALLERGIES (Unverified Allergy, Unknown, 02/10/18) Objective Last 24 Hour Vital Signs Date Time Temp Pulse Resp B/P (MAP) Pulse Ox O2 Delivery O2 Flow Rate FiO2 07/18/19 12:00 97.8 87 18 127/72 (90) 96 07/18/19 11:56 60 07/18/19 08:14 67 138/73 07/18/19 08:06 67 18 97 Room Air 21 07/18/19 08:00 98.1 76 18 138/73 (94) 95 07/18/19 07:56 65 07/18/19 07:41 Room Air 07/18/19 04:00 98.1 62 18 122/62 (82) 96 07/18/19 04:00 60 07/18/19 00:00 98.2 63 18 106/59 (75) 97 07/18/19 00:00 60 07/17/19 21:00 Room Air 07/17/19 20:00 61 07/17/19 20:00 98.3 63 18 113/50 (71) 98 07/17/19 19:45 78 18 97 Room Air 21 Intake and Output 07/17/19 07/18/19 18:59 06:59 Intake Total 1600 ml 400 ml Balance 1600 ml 400 ml Intake Oral 400 ml Other 1600 ml # Voids 3 Laboratory Tests 07/17/19 21:40: Urine Color Pale yellow, Urine Appearance Clear, Urine pH 6, Urine Specific [place] 1.020, Urine Protein Negative, Urine Glucose (UA) Negative, Urine Ketones Negative, Urine Blood 1+H, Urine Nitrite Negative, Urine Bilirubin Negative, Urine Urobilinogen Normal, Urine Leukocyte Esterase Negative, Urine RBC 0-2, Urine WBC 0-2, Urine Squamous Epithelial Cells ModerateH, Urine Bacteria Occasional Current Medications Medications (Trade) Dose Ordered Sig/Ganesh Route PRN Reason Start Time Stop Time Status Last Admin Dose Admin Albuterol/ Ipratropium (Albuterol/ Ipratropium) 3 ml Q4H PRN HHN Shortness of Breath 07/16/19 12:00 07/21/19 11:59 Allopurinol (Zyloprim) 100 mg DAILY ORAL 07/16/19 09:00 08/15/19 08:59 07/18/19 08:14 Aspirin (Ecotrin) 81 mg DAILY ORAL 07/16/19 09:00 08/15/19 08:59 07/18/19 08:14 Atenolol (Tenormin) 12.5 mg DAILY ORAL 07/17/19 09:00 08/16/19 08:59 07/18/19 08:14 Atorvastatin Calcium (Lipitor) 20 mg BEDTIME ORAL 07/16/19 21:00 08/15/19 20:59 07/17/19 20:19 Colchicine (Colchicine) 0.6 mg PRN PRN ORAL gout 07/15/19 22:00 08/14/19 21:29 Docusate Sodium (Colace) 100 mg NEEDED PRN ORAL constipation 07/15/19 21:30 08/14/19 21:29 Docusate Sodium (Colace) 100 mg TWICE A DAY ORAL 07/16/19 09:00 08/15/19 08:59 07/18/19 08:14 Pantoprazole (Protonix) 40 mg DAILY ORAL 07/17/19 09:00 08/16/19 08:59 07/18/19 08:14 Herb Boss MD Jul 18, 2019 16:08
--- NOTE | 2019-07-18 19:14 | NUR ---
HAND-OFF: Report given to Yee Gutierrez RN.
--- NOTE | 2019-07-18 19:20 | NUR ---
NURSE NOTES: Received report from Yee Taylor RN. Patient AAO X4 in bed with no S/S of acute pain or discomfort at this time. Kept clean, dry, and comfortable in bed. IV line established and placed on continuous cardiac monitoring per protocol. Ambulates with minimal assistance to the bedside commode. Safety precaution in place; siderails X3 up, call light within reach, bed in lowest position, brakes and alarm on at all times. Needs and wants anticipated and attended, will continue plan of care and monitor for any changes noted. VQ scan scheduled on tomorrow 07/19/19
[2019-07-18 20:00] VITALS: BP 146/80
[2019-07-18] MEDS: Atorvastatin 20mg tab ORAL SCH (20:30)
[2019-07-19] VITALS: BP 131/70
--- NOTE | 2019-07-19 03:50 | NUR ---
NURSE NOTES: Patient in bed asleep with no S/S of distress noted. Will continue to monitor.
[2019-07-19 04:00] VITALS: BP 135/66
--- NOTE | 2019-07-19 07:04 | NUR ---
HAND-OFF: Report given to Susi Abdi RN. Patient in bed with no S/S of distress noted. Endorsed plan of care.
--- NOTE | 2019-07-19 07:23 | NUR ---
NURSE NOTES: Received report from ALEXANDRIA Emerson. Pt in bed, awake, talkative, no apparent distress noted, commode at bedside, no complaints of pain, bed in lowest position, call light within reach.
[2019-07-19 08:00] VITALS: BP 139/75
[2019-07-19] MEDS: Allopurinol 100mg Tab ORAL SCH (08:13)
[2019-07-19] MEDS: Atenolol 25mg tab ORAL SCH (08:13)
[2019-07-19] MEDS: Aspirin EC 81mg tab ORAL SCH (08:14)
[2019-07-19] MEDS: Docusate 100mg cap ORAL SCH ×2 (08:14→17:01)
--- NOTE | 2019-07-19 09:22 | NUR ---
NM Lung V/Q Scan complete.
--- NOTE | 2019-07-19 10:31 | Diagnostic Imaging Report ---
Indications: Shortness of breath Technique: IV administration 5.5 mCi 99m technetium macroaggregated albumin. Images obtained over the lungs in multiple projections. Previously , patient inhaled 44 mCi aerosolized 99M technetium DTPA. Images obtained over the lungs in multiple projections Comparison: Reference made to chest radiograph 07/15/2019 Findings: No significant segmental or subsegmental perfusion defects or evidence of ventilation/perfusion mismatch demonstrated. Impression: Low probability for pulmonary embolus
[2019-07-19 11:27] VITALS: BP 118/68
--- NOTE | 2019-07-19 12:41 | NUR ---
CASE MANAGEMENT:REVIEW 07/19/19 SI: AFIB. HEADACHE DYSPNEA ON MINIMAL EXERTION 98.1 60 18 118/68 95% ON RA IS: PROTONIX PO QD ATENOLOL PO QD LIPITOR PO QHS DUONEB HHN Q4HRS PRN ALLOPURINOL PO QD ASA PO QD COLACE PO BID : MED/SURG STATUS 4 EAST DCP: FROM HOME PLAN: PHYSICAL THERAPY ~ AMBULATED 100FT VQ SCAN ~ LOW PROBABILITY FOR PE
[2019-07-19 15:24] VITALS: BP 126/63
--- NOTE | 2019-07-19 19:10 | NUR ---
HAND-OFF: Report given to ALEXANDRIA Pham. Pt stable.
--- NOTE | 2019-07-19 19:36 | NUR ---
NURSE NOTES: Received report from ALEXANDRIA Carter , in stable condition , AO x4, able to make needs known, denies pain, IV on R hand g22, asymptomatic, intact, patent , bed low&locked,side rails upx3, call light within reach, will continue to monitor and reassess
--- NOTE | 2019-07-19 19:56 | Cardiology Progress Note ---
Assessment/Plan Assessment/Plan 1. Exertional shortness of breath. 2. Obesity. 3. Hypertension. No coronary artery calcification. 4. Hyperlipidemia. 5. Gastroesophageal reflux disease. 6. History of atrial fibrillation previously. pro bnp min increased d dimer min increased pacer interrogation rate responsveness increased mpi neg echo neg venous duplex neg will start on a course of diuretic hi resolution ct of chest d/w dr bradley Subjective Cardiovascular: Denies: chest pain, lightheadedness Respiratory: Reports: shortness of breath, SOB with excertion Gastrointestinal/Abdominal: Denies: abdominal pain Genitourinary: Denies: burning Objective Last 24 Hour Vital Signs Date Time Temp Pulse Resp B/P (MAP) Pulse Ox O2 Delivery O2 Flow Rate FiO2 07/19/19 15:24 98.6 61 18 126/63 (84) 96 07/19/19 15:09 86 07/19/19 11:57 68 07/19/19 11:27 98.1 60 18 118/68 (85) 95 07/19/19 08:13 64 139/75 07/19/19 08:00 97.9 64 18 139/75 (96) 96 07/19/19 07:59 Room Air 07/19/19 07:44 66 18 98 Room Air 21 07/19/19 07:42 68 07/19/19 04:00 97.7 70 18 135/66 (89) 100 07/19/19 04:00 60 07/19/19 00:00 98.3 65 20 131/70 (90) 100 07/19/19 00:00 72 07/18/19 21:00 Room Air 07/18/19 20:00 98.2 65 20 146/80 (102) 98 07/18/19 20:00 68 18 98 Room Air 21 07/18/19 20:00 62 General Appearance: no apparent distress, alert Neck: supple Cardiovascular: normal rate, regular rhythm Respiratory/Chest: lungs clear Abdomen: normal bowel sounds, non tender, soft Extremities: no swelling Intake and Output 07/18/19 07/19/19 18:59 06:59 Intake Total 240 ml 240 ml Balance 240 ml 240 ml Intake Oral 240 ml 240 ml # Voids 1 2 # Bowel Movements 2 Jose F Barrow MD Jul 19, 2019 19:56
[2019-07-19 20:00] VITALS: BP 125/71
--- NOTE | 2019-07-19 20:48 | Geriatric Progress Note ---
Assessment/Plan Problems: (1) Dyspnea on minimal exertion (2) Obesity (3) Hypertension (4) Dyslipidemia (5) Obstructive sleep apnea (6) GERD (gastroesophageal reflux disease) (7) Atrial fibrillation (8) Headache Assessment/Plan Still symptomatic, await diuretic response. Will also obtain high resolution CT to look at lung parenchyma. Discussed with patient whether she would consider inpatient pulmonary rehab if no treatable etiology uncovered. Patient will think about it. Also agreed to trial of BiPAP to see effect on sxs. Check BMP given diuretics. Discussed with: patient, hospital staff Subjective Interval Events Patient reports feeling well, but still very dyspneic getting in and out of bed. Otherwise feels well. Eating well, B&B OK. V/Q low probability. Discussed with Dr. Barrow, will try diuresis to see if there is any benefit. Constitutional: Denies: chills, pain, sweats, fever Respiratory: Denies: cough Cardiovascular: Denies: chest pain, palpitations Gastrointestinal/Abdominal: Denies: abdominal pain Genitourinary: Denies: dysuria Geriatric Geriatric Last 24 Hour Vital Signs Date Time Temp Pulse Resp B/P (MAP) Pulse Ox O2 Delivery O2 Flow Rate FiO2 07/19/19 20:28 70 18 99 Room Air 21 07/19/19 20:00 96.8 66 20 125/71 (89) 98 07/19/19 15:24 98.6 61 18 126/63 (84) 96 07/19/19 15:09 86 07/19/19 11:57 68 07/19/19 11:27 98.1 60 18 118/68 (85) 95 07/19/19 08:13 64 139/75 07/19/19 08:00 97.9 64 18 139/75 (96) 96 07/19/19 07:59 Room Air 07/19/19 07:44 66 18 98 Room Air 21 07/19/19 07:42 68 07/19/19 04:00 97.7 70 18 135/66 (89) 100 07/19/19 04:00 60 07/19/19 00:00 98.3 65 20 131/70 (90) 100 07/19/19 00:00 72 07/18/19 21:00 Room Air Intake and Output 07/18/19 07/19/19 19:00 07:00 Intake Total 240 ml 240 ml Balance 240 ml 240 ml Intake Oral 240 ml 240 ml # Voids 1 2 # Bowel Movements 2 Current Medications Medications (Trade) Dose Ordered Sig/Ganesh Route PRN Reason Start Time Stop Time Status Last Admin Dose Admin Albuterol/ Ipratropium (Albuterol/ Ipratropium) 3 ml Q4H PRN HHN Shortness of Breath 07/16/19 12:00 07/21/19 11:59 Allopurinol (Zyloprim) 100 mg DAILY ORAL 07/16/19 09:00 08/15/19 08:59 07/19/19 08:13 Aspirin (Ecotrin) 81 mg DAILY ORAL 07/16/19 09:00 08/15/19 08:59 07/19/19 08:14 Atenolol (Tenormin) 12.5 mg DAILY ORAL 07/17/19 09:00 08/16/19 08:59 07/19/19 08:13 Atorvastatin Calcium (Lipitor) 20 mg BEDTIME ORAL 07/16/19 21:00 08/15/19 20:59 07/18/19 20:30 Colchicine (Colchicine) 0.6 mg PRN PRN ORAL gout 07/15/19 22:00 08/14/19 21:29 Docusate Sodium (Colace) 100 mg NEEDED PRN ORAL constipation 07/15/19 21:30 08/14/19 21:29 Docusate Sodium (Colace) 100 mg TWICE A DAY ORAL 07/16/19 09:00 08/15/19 08:59 07/19/19 17:01 Furosemide (Lasix) 40 mg ONCE IV 07/19/19 20:00 07/19/19 21:00 Pantoprazole (Protonix) 40 mg DAILY ORAL 07/17/19 09:00 08/16/19 08:59 07/19/19 08:14 Height (Feet): 5 Height (Inches): 7.00 Weight (Pounds): 238 General Appearance: no apparent distress, alert, non-toxic Head: normocephalic, atraumatic Eyes: bilateral anicteric ENT: normal voice Neck: full range of motion, no mass Respiratory: lungs clear, decreased breath sounds Cardiovascular: regular rate, rhythm Gastrointestinal: normal bowel sounds, non tender, soft, no mass, no organomegaly, overweight Musculoskeletal: no calf tenderness Edema: no edema noted Generalized Neurologic: no new focality Cullen Willett MD Jul 19, 2019 20:48
[2019-07-19] MEDS: Atorvastatin 20mg tab ORAL SCH (21:07)
[2019-07-19] MEDS ORDERED: Bismuth Subsalicylate 30ml ORAL PRN (22:00)
--- NOTE | 2019-07-20 | NUR ---
NURSE NOTES: patient refuses to wear BiPap, she states: " I don't care what the doctor says". Explained the risks x3.Will continue to monitor
[2019-07-20 07:37] LABS: ANION GAP 8 mmol/L (5-15); BLOOD UREA NITROGEN 24 mg/dL (7-18); CALCIUM 9.3 MG/DL (8.5-10.1); CARBON DIOXIDE 32 MMOL/L (21-32); CHLORIDE 103 MMOL/L (98-107); CREATININE 1.4 MG/DL (0.55-1.30); POTASSIUM 4.1 MMOL/L (3.5-5.1); SODIUM 143 MMOL/L (136-145)
--- NOTE | 2019-07-20 07:48 | NUR ---
NURSE NOTES: Pt in bed, low position, call light at bedside, pt ambulates to restroom, denies pain, scheduled for a CT chest no contrast for today, no s/s of distress or sob at this time, pt states she has not slept, offered the pt a dark room by closing blinds and turning off the lights when she is ready.
[2019-07-20 08:00] VITALS: BP 144/60
[2019-07-20] MEDS: Atenolol 25mg tab ORAL SCH (09:44)
[2019-07-20] MEDS: Aspirin EC 81mg tab ORAL SCH (09:45)
[2019-07-20] MEDS: Allopurinol 100mg Tab ORAL SCH (09:45)
[2019-07-20] MEDS: Docusate 100mg cap ORAL SCH ×2 (09:46→17:37)
--- NOTE | 2019-07-20 09:49 | Cardiology Progress Note ---
Assessment/Plan Assessment/Plan 1. Exertional shortness of breath. 2. Obesity. 3. Hypertension. No coronary artery calcification. 4. Hyperlipidemia. 5. Gastroesophageal reflux disease. 6. History of atrial fibrillation previously. pro bnp min increased d dimer min increased pacer interrogation rate responsveness increased mpi neg echo neg venous duplex neg labs this am look good feel littler better this am with respect to breathing will give more diuretic this am an to reassess later today by dr bradley to see if a good response hi resolution ct of chest done result pending Objective Last 24 Hour Vital Signs Date Time Temp Pulse Resp B/P (MAP) Pulse Ox O2 Delivery O2 Flow Rate FiO2 07/20/19 08:37 Room Air Room Air 07/20/19 08:00 96.3 68 18 144/60 (88) 96 07/20/19 07:11 70 18 97 Room Air 21 07/20/19 04:00 60 07/20/19 00:01 63 07/19/19 22:00 65 17 98 Facial 21 07/19/19 21:00 Room Air 07/19/19 20:28 70 18 99 Room Air 21 07/19/19 20:00 96.8 66 20 125/71 (89) 98 07/19/19 20:00 87 07/19/19 15:24 98.6 61 18 126/63 (84) 96 07/19/19 15:09 86 07/19/19 11:57 68 07/19/19 11:27 98.1 60 18 118/68 (85) 95 Intake and Output 07/19/19 07/20/19 19:00 07:00 Intake Total 720 ml Output Total 500 ml Balance 220 ml Intake Oral 720 ml Output Urine Total 500 ml # Voids 6 Laboratory Tests Test 07/20/19 06:25 Sodium Level 143 MMOL/L (136-145) Potassium Level 4.1 MMOL/L (3.5-5.1) Chloride Level 103 MMOL/L (98-107) Carbon Dioxide Level 32 MMOL/L (21-32) Anion Gap 8 mmol/L (5-15) Blood Urea Nitrogen 24 mg/dL (7-18) H Creatinine 1.4 MG/DL (0.55-1.30) H Estimat Glomerular Filtration Rate 45.1 mL/min (>60) Glucose Level 120 MG/DL (74-106) H Calcium Level 9.3 MG/DL (8.5-10.1) Magnesium Level 1.8 MG/DL (1.8-2.4) Jose F Barrow MD Jul 20, 2019 09:49
--- NOTE | 2019-07-20 10:26 | Diagnostic Imaging Report ---
Clinical Indication: Dyspnea on minimal exertion Technique: Spiral acquisition obtained through the chest. No IV contrast utilized, per high resolution protocol. Axial 5 x 5 mm slices were reconstructed. Axial 1 mm thick slices were reconstructed using high resolution algorithm at 10 mm intervals. Multiplanar reconstructions generated. Total dose length product 964 mGycm. CTDIvol(s) 21 mGy. Dose reduction achieved using automated exposure control Comparison: none Findings: There is a 2 mm noncalcified nodule in the right upper lobe, image 16 series 3. Dependent atelectatic changes are seen in the posterior medial right lower lobe. Left lung is clear. No infiltrates, effusions, or masses are demonstrated. On the high-resolution images, there is no significant interstitial septal thickening, bronchiectasis, nodularity, honeycombing or groundglass opacity demonstrated. There is minimal subpleural scarring at the right lung apex. No significant hyperinflation or bullous changes are evident. The heart is normal in size. There is no pericardial effusion. There is a small sliding-type hiatal hernia incidentally noted. No mediastinal or hilar mass or adenopathy. There are coronary artery calcifications. There is a left chest pacemaker. No axillary or chest wall mass or adenopathy demonstrated. The included upper abdominal anatomy is unremarkable. The bones are unremarkable except for mild degenerative proliferative changes of the thoracic spine Impression: 2 mm noncalcified nodule in the right upper lobe. If there is no significant smoking history or other risk factors for lung carcinoma, then no further follow-up necessary. If there are significant risk factors, recommend short interval follow-up in 6-12 months Minimal posterior dependent atelectatic changes on the right. Otherwise unremarkable lungs. No evidence of interstitial disease or other significant abnormality Other findings as noted, including small hiatal hernia, coronary artery calcifications, left chest pacemaker, degenerative spondylosis The CT scanner at [facility] is accredited by the [employer] and the scans are performed using protocols designed to limit radiation exposure to as low as reasonably achievable to attain images of sufficient resolution adequate for diagnostic evaluation.
[2019-07-20 12:00] VITALS: BP 119/70
[2019-07-20 15:59] VITALS: BP 103/68
--- NOTE | 2019-07-20 19:17 | NUR ---
HAND-OFF: Report given to Brian Hsu.
--- NOTE | 2019-07-20 19:24 | NUR ---
NURSE NOTES: Received report from ALEXANDRIA Mantilla. Patient is awake lying semi-muñoz's; resting comfortably. No signs of acute distress noted; denies pain at this time. AOx4; able to make needs known. Ambulates to bedside commode independently. Bedside commode easily accessible. Bed at lowest position, brakes on, siderails up x2. Call light within reach. Will continue to monitor.
[2019-07-20 20:00] VITALS: BP 111/60
--- NOTE | 2019-07-20 20:08 | Geriatric Progress Note ---
Assessment/Plan Problems: (1) Dyspnea on minimal exertion (2) Obesity (3) Hypertension (4) Dyslipidemia (5) Obstructive sleep apnea (6) GERD (gastroesophageal reflux disease) (7) Atrial fibrillation (8) Headache Assessment/Plan Still no definitive etiology for increased LOW. Mild clinical response to Lasix. Will review dosing with Dr. Barrow. Likely can d/c tomorrow. Patient wishes to go home. Interested in outpatient P.T. Will see if patient can be transported to location with ability to monitor and supplement O2 if necessary. Continue other medications. Discussed with: patient, hospital staff Subjective Interval Events Patient reports feeling slightly better. Given Lasix per Dr. Barrow. CT scan of chest unremarkable. With no indication of fluid redistribution or infiltrate or parenchymal lung disease. Small nodule noted, not suspicious. Patient feels breathlessness is improved. Constitutional: Denies: chills, pain, sweats, fever Respiratory: Denies: cough Cardiovascular: Denies: chest pain, palpitations Genitourinary: Denies: dysuria Geriatric Geriatric Last 24 Hour Vital Signs Date Time Temp Pulse Resp B/P (MAP) Pulse Ox O2 Delivery O2 Flow Rate FiO2 07/20/19 16:20 68 07/20/19 15:59 97.7 69 20 103/68 (80) 95 69 07/20/19 12:00 97.1 64 18 119/70 (86) 100 64 07/20/19 09:44 68 144/60 07/20/19 08:37 Room Air Room Air 07/20/19 08:00 96.3 68 18 144/60 (88) 96 07/20/19 07:49 71 07/20/19 07:11 70 18 97 Room Air 21 07/20/19 04:00 60 07/20/19 00:01 63 07/19/19 22:00 65 17 98 Facial 21 07/19/19 21:00 Room Air 07/19/19 20:28 70 18 99 Room Air 21 07/19/19 20:00 96.8 66 20 125/71 (89) 98 07/19/19 20:00 87 Intake and Output 07/19/19 07/20/19 18:59 06:59 Intake Total 720 ml Output Total 500 ml Balance 220 ml Intake Oral 720 ml Output Urine Total 500 ml # Voids 6 Laboratory Tests Test 07/20/19 06:25 Sodium Level 143 MMOL/L (136-145) Potassium Level 4.1 MMOL/L (3.5-5.1) Chloride Level 103 MMOL/L (98-107) Carbon Dioxide Level 32 MMOL/L (21-32) Anion Gap 8 mmol/L (5-15) Blood Urea Nitrogen 24 mg/dL (7-18) H Creatinine 1.4 MG/DL (0.55-1.30) H Estimat Glomerular Filtration Rate 45.1 mL/min (>60) Glucose Level 120 MG/DL (74-106) H Calcium Level 9.3 MG/DL (8.5-10.1) Magnesium Level 1.8 MG/DL (1.8-2.4) Current Medications Medications (Trade) Dose Ordered Sig/Ganesh Route PRN Reason Start Time Stop Time Status Last Admin Dose Admin Albuterol/ Ipratropium (Albuterol/ Ipratropium) 3 ml Q4H PRN HHN Shortness of Breath 07/16/19 12:00 07/21/19 11:59 Allopurinol (Zyloprim) 100 mg DAILY ORAL 07/16/19 09:00 08/15/19 08:59 07/20/19 09:45 Aspirin (Ecotrin) 81 mg DAILY ORAL 07/16/19 09:00 08/15/19 08:59 07/20/19 09:45 Atenolol (Tenormin) 12.5 mg DAILY ORAL 07/17/19 09:00 08/16/19 08:59 07/20/19 09:44 Atorvastatin Calcium (Lipitor) 20 mg BEDTIME ORAL 07/16/19 21:00 08/15/19 20:59 07/19/19 21:07 Bismuth Subsalicylate (Pepto-Bismol) 30 ml Q1H PRN ORAL nausea 07/19/19 22:00 08/18/19 21:59 07/19/19 22:29 Colchicine (Colchicine) 0.6 mg PRN PRN ORAL gout 07/15/19 22:00 08/14/19 21:29 Docusate Sodium (Colace) 100 mg NEEDED PRN ORAL constipation 07/15/19 21:30 08/14/19 21:29 Docusate Sodium (Colace) 100 mg TWICE A DAY ORAL 07/16/19 09:00 08/15/19 08:59 07/20/19 17:37 Pantoprazole (Protonix) 40 mg DAILY ORAL 07/17/19 09:00 08/16/19 08:59 07/20/19 09:45 Height (Feet): 5 Height (Inches): 7.00 Weight (Pounds): 238 General Appearance: no apparent distress, alert, non-toxic Head: normocephalic, atraumatic Eyes: bilateral anicteric ENT: normal voice Neck: full range of motion, no mass Respiratory: lungs clear, decreased breath sounds Cardiovascular: regular rate, rhythm Gastrointestinal: normal bowel sounds, non tender, soft, no mass, no organomegaly, non-distended Musculoskeletal: no calf tenderness Edema: no edema noted Generalized Neurologic: no new focality Cullen Willett MD Jul 20, 2019 20:07
--- NOTE | 2019-07-20 21:05 | NUR ---
NURSE NOTES: Received order from Dr. Willett to have patient's O2 saturation monitored while ambulating in AM before possible discharge. Noted and carried out.
[2019-07-20] MEDS: Atorvastatin 20mg tab ORAL SCH (22:02)
[2019-07-21 04:00] VITALS: BP 128/67
--- NOTE | 2019-07-21 07:34 | NUR ---
HAND-OFF: Report given to ALEXANDRIA Mantilla. Patient is awake lying semi-muñoz's; resting comfortably. In stable condition.
[2019-07-21 08:00] VITALS: BP 129/75
--- NOTE | 2019-07-21 08:07 | NUR ---
NURSE NOTES: Pt in bed in high fowlers position, pt is able to ambulate by herself, call light at bedside, pt is very pleasant, calm and cooperative, pt stable, Per PCP might discharge later today, pt denies pain, no s/s of distress or sob noted.
[2019-07-21 08:46] LABS: ANION GAP 1 mmol/L (5-15); BLOOD UREA NITROGEN 31 mg/dL (7-18); CALCIUM 9.3 MG/DL (8.5-10.1); CARBON DIOXIDE 38 MMOL/L (21-32); CHLORIDE 100 MMOL/L (98-107); CREATININE 1.7 MG/DL (0.55-1.30); SODIUM 139 MMOL/L (136-145)
[2019-07-21] MEDS: Aspirin EC 81mg tab ORAL SCH (09:49)
[2019-07-21] MEDS: Allopurinol 100mg Tab ORAL SCH (09:49)
[2019-07-21 09:50] VITALS: BP 129/75
[2019-07-21] MEDS: Atenolol 25mg tab ORAL SCH (09:50)
[2019-07-21] MEDS: Docusate 100mg cap ORAL SCH (09:50)
--- NOTE | 2019-07-21 10:49 | NUR ---
CASE MANAGEMENT:REVIEW 07/21/19 SI: AFIB. HEADACHE DYSPNEA ON MINIMAL EXERTION 98.2 68 18 129/75 95% ON RA BUN+31 CR+1.7 IS: PROTONIX PO QD ATENOLOL PO QD LIPITOR PO QHS DUONEB HHN Q4HRS PRN ALLOPURINOL PO QD ASA PO QD COLACE PO BID : MED/SURG STATUS 4 EAST DCP: FROM HOME
--- NOTE | 2019-07-21 11:06 | NUR ---
NURSE NOTES: D/C order in per MD Willett, continue hospital meds and he will call her pharmacy to prescribe her Lasix 40mg once a day. will notify patient and arrange transportation
[2019-07-21] MEDS ORDERED: ATENOLOL25 MG ORAL (12:04)
[2019-07-21] MEDS ORDERED: FUROSEMIDE40 MG ORAL (12:05)
--- NOTE | 2019-07-21 13:42 | NUR ---
NURSE NOTES: IV and ID band removed, pt was given aftercare plan with med recon, the pt was instructed to follow with her pharmacy to continuous pickling line pickler her Lasix 40mg QD, instructed that her Atenolol was changed to 12.5mg per day once... Pt was walked down to lobby by DRESS FITTER and picked up .. pt signed and acknowledged her belongings.
--- NOTE | 2019-07-21 17:03 | Discharge Summary ---
Discharge Summary Discharge Summary _ Date of Admission: July 15, 2019. Date of Discharge: July 21, 2019. Discharge Diagnoses: 1. Severe exertional dyspnea, multifactorial, improved on discharge. 2. Diastolic Congestive Heart Failure, Acute on Chronic. 3. Prior history of atypical chest pain, status post normal cardiac catheterization. 4. Paroxysmal atrial fibrillation s/p pacer. 5. Hypertension. 6. Dyslipidemia. 7. Obesity. 8. Obstructive sleep apnea, intolerant of BiPAP. 9. Gastroesophageal reflux disease. 10. History of atypic. 11. History of atypical right chest pain, suspected zoster. 12. Degenerative joint disease, notably bilateral knees. 13. 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 14. History of panic attacks. 15. History of headaches likely muscle tension. 16. Abdominal wall diastasis, umbilical hernia s/p repair with omental resection. 17. Status post tonsillectomy. 18. Status post hysteroscopy with cyst resection. 19. Hyperuricemia, possible gout. 18. B12 deficiency. 19. Vitamin D deficiency. 20. Obesity. Medications: 1. Dulera Inhaler 2 puffs bid. 2. Allopurinol 100 mg daily. 3. Aspirin 81 mg daily. 4. Atenolol 12.5 mg daily. 5. Docusate 100 mg twice daily. 6. Vit D3 5000u daily. 7. Vit B12 1000mcg daily. 8. Omeprazole 20 mg daily. 9. Simvastatin 10 mg qhs. 10. Tramadol 50mg q6 prn. 11. Furosemide 40 mg daily. Allergies: NKDA. History of Present Illness: Past Medical History: 1. Prior history of atypical chest pain, status post normal cardiac catheterization. 2. Paroxysmal atrial fibrillation s/p pacer. 2. Hypertension. 3. Dyslipidemia. 4. Obesity. 5. Obstructive sleep apnea. 6. Gastroesophageal reflux disease. 7. History of atypic. 8. History of atypical right chest pain, suspected zoster. 9. Degenerative joint disease, notably bilateral knees. 10. 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 11. History of panic attacks. 12. History of headaches likely muscle tension. 13. Abdominal wall diastasis, umbilical hernia s/p repair with omental resection. 14. Status post tonsillectomy. 15. Status post hysteroscopy with cyst resection. 16. Hyperuricemia, possible gout. 17. B12 deficiency. 18. Vitamin D deficiency. 19. Obesity. Medications: 1. DuoNeb unit dose every 4 hours as needed by nebulizer. 2. Allopurinol 100 mg daily. 3. Aspirin 81 mg daily. 4. Atenolol 25 mg daily. 5. Docusate 100 mg twice daily. 6. Vit D3 5000u daily. 7. Vit B12 1000mcg daily. 8. Omeprazole 20 mg daily. 9. Simvastatin 10 mg qhs. 10. Tramadol 50mg q6 prn. Allergies: NKDA. History of Present Illness: Ms. Fagan is a 68-year-old woman who presented at the office on the day of admission complaints of significant dyspnea on exertion. She was referred to the [facility] outpatient department for various lab studies, but on her way to the admissions department she became severely dyspneic and was referred to the emergency department. Details of the history and physical examination are per the dictation of July 15, 2019. Hospital Course: On presentation Ms. Fagan symptoms are somewhat puzzling, since she was quite comfortable at rest but became dyspneic with even small amounts of exertion, such as repositioning herself in the bed. Diagnostic considerations included anginal equivalent, congestive heart failure, pulmonary embolus, inflammatory lung disease, and pneumonitis. Consultations were obtained from Dr. Herb Boss for pulmonology, and Dr. Jose F Barrow for cardiology. Diagnostic studies included cardiac echo, nuclear medicine ischemia scan, high-resolution spiral CT of the lung without contrast, VQ scan, lower extremity venous duplex, as well as laboratory studies. Pacemaker interrogation and rate adjustment was also done through Dr. Melania Ivy. None of the studies gave convincing evidence of a specific pathology for the patient's dyspnea. However Dr. Barrow felt there could be a component of diastolic congestive heart failure contributing to the etiology. He recommended a trial of diuresis. After the diuresis the patient reported feeling symptomatically better. It was decided that she should be discharged on 40 mg of Lasix daily with outpatient follow- up. Despite her dyspnea the patient did not exhibit desaturation with exertion. It should be also noted that the patient has a history of obstructive sleep apnea. There was concern that untreated apnea might of been related to pulmonary hypertension contributing to the symptoms. However the echocardiogram failed to reveal significant pulmonary hypertension. The patient also could not tolerate a BiPAP mask which is the reason she has been foregoing treatment at home. Therefore she is discharged without specific therapy for this problem. At the time of discharge the patient reports she is symptomatically improved and feels comfortable with returning home. She was offered the possibility of inpatient pulmonary rehab but has declined that option. And temporally may need to arrange outpatient pulmonary rehabilitation to improve her exercise tolerance she will be followed up in the office. Cullen Willett MD Jul 21, 2019 17:03
== END 2019-07-21 13:00 | disposition home or self-care (01) | DRG 292 ==
LOC: EDBEDREQ 18:28 → EMR 18:43 → EDBEDREQ 19:47 → 2E 20:01 → OBSVTOIN 07-16 17:13
DX: I11.0 Hypertensive heart disease with heart failure (principal); G95.89 Other specified diseases of spinal cord; I50.33 Acute on chronic diastolic (congestive) heart failure; G47.33 Obstructive sleep apnea (adult) (pediatric); R06.00 Dyspnea, unspecified; I48.0 Paroxysmal atrial fibrillation; E78.5 Hyperlipidemia, unspecified; M19.90 Unspecified osteoarthritis, unspecified site; K21.9 Gastro-esophageal reflux disease without esophagitis; Z95.0 Presence of cardiac pacemaker; E66.9 Obesity, unspecified; I25.10 Atherosclerotic heart disease of native coronary artery without angina pectoris; M10.9 Gout, unspecified; R51 Headache; M17.0 Bilateral primary osteoarthritis of knee; E55.9 Vitamin D deficiency, unspecified
CPT/HCPCS: 36415; 71045; 71250; 78452; 78579; 78580; 80048; 80053; 81001; 83735; 83880; 84443; 84484; 85025; 85379; 85610; 85651; 85730; 93005; 93017; 93306; 93970; 94640; 94660; 94664; 99284; A9503; J2785; J7620